=== PATIENT | male | born 1960 | race Caucasian/White ===

== ENCOUNTER 2017-07-17 08:15 | Outpatient (RCR) | payer OTHER, MEDICAID, SELFPAY ==
--- NOTE | 2017-06-10 13:54 | PT.OTN ---
Addendum entered and electronically signed by Faith Barillas, PT 06/10/17 14:23: Transition note: On June 10, 2017 our therapy services consisting of Speech, Occupational, and Physical Therapy transitioned from the [employer] electronic documentation system to a new [employer] electronic documentation system.?? All documentation prior to June 10 can be found under [employer] saved data. From June 10 forward all medical record documentation will be in [email or web address]. Original Note: Physical Therapy Treatment Note PT-OP-A Visit Information Start: 06/10/17 08:12 Freq: Status: Active Protocol: Activity Type Activity Date Activity User E-Sign Co-Sign Detail Recorded Client Recorded Date Recorded By Document 06/10/17 13:39 EA [id number] 06/10/17 13:40 EA 06/10/17 13:39 Out-Patient Physical Therapy Visit Information [Visit Information] -Visit Type Treatment Note -Visit Start Time 07:30 -Visit Stop Time 08:23 -Total Visit Minutes 53 PT-OP-C Subjective Start: 06/10/17 08:12 Freq: Status: Active Protocol: Activity Type Activity Date Activity User E-Sign Co-Sign Detail Recorded Client Recorded Date Recorded By Document 06/10/17 08:15 EA [id number] 06/10/17 10:27 EA 06/10/17 08:15 OP-PT Subjective [Patient Comments] -Patient Comments Patient reports no change in the condition which pain comes and goes and mostly w/ stationary seating. -Patient Reported Progress Same PT-OP-Q Treatments Start: 06/10/17 08:12 Freq: Status: Active Protocol: Activity Type Activity Date Activity User E-Sign Co-Sign Detail Recorded Client Recorded Date Recorded By Document 06/10/17 08:15 EA [id number] 06/10/17 10:27 EA 06/10/17 08:15 Therapeutic Exercises [Supine Exercises] Stretched: Bilat periformis, Thoralumbars, gluteals -Side bilateral PPT/abd bracing: w/ alt marching -Side bilateral -Reps/Minutes x 10 reps x 2 sets Single to bilateral knee to chest w/ PPT -Side bilateral -Reps/Minutes x 15 SH x 5 reps x 2 sets [Prone Exercises] Prone childe pose x 2 reps x 15SH each sides -Side bilateral Prone knee bent Low trunk rotation x 15 reps x 2 sets -Side bilateral -Resistance AROM -Reps/Minutes x 15 x 2sets Prone Mat: Unilat-bilateral hip extension- to progress w/ alt arms reaching -Side bilateral -Reps/Minutes 15 rep x 2 sets Manual Therapy Treatment [Soft Tissue Mobilization] STM to right paralumbars, TLF -Mobilization Type Myofascial Release Sustained Pressure -Body Position Prone PT-OP-R Modalities Start: 06/10/17 08:12 Freq: Status: Active Protocol: Activity Type Activity Date Activity User E-Sign Co-Sign Detail Recorded Client Recorded Date Recorded By Document 06/10/17 08:15 EA [id number] 06/10/17 10:27 EA 06/10/17 08:15 Electric Stimulation [Electric Stimulation] Interferential Current (IFC) -Intensity 23 -Contraction Type Normal -Target/Sweep Target -High/Low High -Patient Position Prone -Combined With Heat/Cold Hot Pack Hot Pack/Cold Pack [Treatment] Hot Pack -Location Paralumbars -Patient Position Prone -Patient Tolerance Good PT-OP-T Assessment and Plan Start: 06/10/17 08:12 Freq: Status: Active Protocol: Activity Type Activity Date Activity User E-Sign Co-Sign Detail Recorded Client Recorded Date Recorded By Document 06/10/17 08:15 EA [id number] 06/10/17 10:27 EA 06/10/17 08:15 Physical Therapy Assessment [Progress Towards Goals] -Progress Comments Patient tolerated treatment well and had good sysmtoms relief after treatment [Assessment Summary] -Assessment Conitunue w/ current program Physical Therapy Plan [Frequency and Duration] -Frequency of Treatment 2x/Week [Therapeutic Interventions] -Therapeutic Interventions Home Exercise Program Manual Therapy Soft Tissue Mobilization Therapeutic Exercises -Modalities Hot Packs Ultrasound Current Diagnoses Other intervertebral disc displacement, lumbar region (06/10/17) Sciatica, right side (06/10/17)
--- NOTE | 2017-06-10 14:41 | PT.OTN ---
Physical Therapy Treatment Note PT-OP-A Visit Information Start: 06/10/17 08:12 Freq: Status: Active Protocol: Activity Type Activity Date Activity User E-Sign Co-Sign Detail Recorded Client Recorded Date Recorded By Document 06/10/17 13:39 EA [id number] 06/10/17 13:40 EA 06/10/17 13:39 Out-Patient Physical Therapy Visit Information [Visit Information] -Visit Type Treatment Note -Visit Start Time 07:30 -Visit Stop Time 08:23 -Total Visit Minutes 53 PT-OP-C Subjective Start: 06/10/17 08:12 Freq: Status: Active Protocol: Activity Type Activity Date Activity User E-Sign Co-Sign Detail Recorded Client Recorded Date Recorded By Document 06/10/17 08:15 EA [id number] 06/10/17 10:27 EA 06/10/17 08:15 OP-PT Subjective [Patient Comments] -Patient Comments Patient reports no change in the condition which pain comes and goes and mostly w/ stationary seating. -Patient Reported Progress Same PT-OP-Q Treatments Start: 06/10/17 08:12 Freq: Status: Active Protocol: Activity Type Activity Date Activity User E-Sign Co-Sign Detail Recorded Client Recorded Date Recorded By Document 06/10/17 08:15 EA [id number] 06/10/17 10:27 EA 06/10/17 08:15 Therapeutic Exercises [Supine Exercises] Stretched: Bilat periformis, Thoralumbars, gluteals -Side bilateral PPT/abd bracing: w/ alt marching -Side bilateral -Reps/Minutes x 10 reps x 2 sets Single to bilateral knee to chest w/ PPT -Side bilateral -Reps/Minutes x 15 SH x 5 reps x 2 sets [Prone Exercises] Prone childe pose x 2 reps x 15SH each sides -Side bilateral Prone knee bent Low trunk rotation x 15 reps x 2 sets -Side bilateral -Resistance AROM -Reps/Minutes x 15 x 2sets Prone Mat: Unilat-bilateral hip extension- to progress w/ alt arms reaching -Side bilateral -Reps/Minutes 15 rep x 2 sets Manual Therapy Treatment [Soft Tissue Mobilization] STM to right paralumbars, TLF -Mobilization Type Myofascial Release Sustained Pressure -Body Position Prone PT-OP-R Modalities Start: 06/10/17 08:12 Freq: Status: Active Protocol: Activity Type Activity Date Activity User E-Sign Co-Sign Detail Recorded Client Recorded Date Recorded By Document 06/10/17 08:15 EA [id number] 06/10/17 10:27 EA 06/10/17 08:15 Electric Stimulation [Electric Stimulation] Interferential Current (IFC) -Intensity 23 -Contraction Type Normal -Target/Sweep Target -High/Low High -Patient Position Prone -Combined With Heat/Cold Hot Pack Hot Pack/Cold Pack [Treatment] Hot Pack -Location Paralumbars -Patient Position Prone -Patient Tolerance Good PT-OP-T Assessment and Plan Start: 06/10/17 08:12 Freq: Status: Active Protocol: Activity Type Activity Date Activity User E-Sign Co-Sign Detail Recorded Client Recorded Date Recorded By Document 06/10/17 08:15 EA [id number] 06/10/17 10:27 EA 06/10/17 08:15 Physical Therapy Assessment [Progress Towards Goals] -Progress Comments Patient tolerated treatment well and had good sysmtoms relief after treatment [Assessment Summary] -Assessment Conitunue w/ current program Physical Therapy Plan [Frequency and Duration] -Frequency of Treatment 2x/Week [Therapeutic Interventions] -Therapeutic Interventions Home Exercise Program Manual Therapy Soft Tissue Mobilization Therapeutic Exercises -Modalities Hot Packs Ultrasound Current Diagnoses Other intervertebral disc displacement, lumbar region (06/10/17) Sciatica, right side (06/10/17)
--- NOTE | 2017-06-12 10:43 | PT.OTN ---
Current Diagnoses Other intervertebral disc displacement, lumbar region (06/12/17) Sciatica, right side (06/12/17) Physical Therapy Treatment Note PT-OP-A Visit Information Start: 06/10/17 08:12 Freq: Status: Active Protocol: Activity Type Activity Date Activity User E-Sign Co-Sign Detail Recorded Client Recorded Date Recorded By Document 06/12/17 10:29 EA [id number] 06/12/17 10:40 EA 06/12/17 10:29 Out-Patient Physical Therapy Visit Information [Visit Information] -Total Visit Minutes 45 PT-OP-C Subjective Start: 06/10/17 08:12 Freq: Status: Active Protocol: Activity Type Activity Date Activity User E-Sign Co-Sign Detail Recorded Client Recorded Date Recorded By Document 06/12/17 10:29 EA [id number] 06/12/17 10:40 EA 06/12/17 10:29 OP-PT Subjective [Patient Comments] -Patient Comments Patient reports low back pain only hurts when at sleep and pain usually eliminated after moving. PT-OP-Q Treatments Start: 06/10/17 08:12 Freq: Status: Active Protocol: Activity Type Activity Date Activity User E-Sign Co-Sign Detail Recorded Client Recorded Date Recorded By Document 06/12/17 10:29 EA [id number] 06/12/17 10:40 EA 06/12/17 10:29 Therapeutic Exercises [Supine Exercises] Stretched: Bilat periformis, Thoralumbars, gluteals -Side bilateral -Reps/Minutes 30 SH x 2 PPT/abd bracing: w/ alt marching -Side bilateral -Reps/Minutes 10 reps x 2sets Single to bilateral knee to chest w/ PPT -Side bilateral -Reps/Minutes x 15 SH x 2 reps [Prone Exercises] Prone childe pose x 2 reps x 15SH each sides -Side bilateral -Reps/Minutes x 15 SH x 2 reps Prone knee bent Low trunk rotation x 15 reps x 2 sets -Side bilateral -Reps/Minutes x 15 reps x 2 sets Prone Mat: Unilat-bilateral hip extension- to progress w/ alt arms reaching -Side bilateral -Reps/Minutes x 15 reps x 2 Manual Therapy Treatment [Soft Tissue Mobilization] STM to right paralumbars, TLF -Mobilization Type Myofascial Release Sustained Pressure -Body Position Prone PT-OP-R Modalities Start: 06/10/17 08:12 Freq: Status: Active Protocol: Activity Type Activity Date Activity User E-Sign Co-Sign Detail Recorded Client Recorded Date Recorded By Document 06/12/17 10:29 EA [id number] 06/12/17 10:40 EA 06/12/17 10:29 Electric Stimulation [Electric Stimulation] Interferential Current (IFC) -Contraction Type Normal -Patient Position Prone -Combined With Heat/Cold Hot Pack Hot Pack/Cold Pack [Treatment] Hot Pack -Location paralumbars -Patient Position Prone -Patient Tolerance Good PT-OP-T Assessment and Plan Start: 06/10/17 08:12 Freq: Status: Active Protocol: Activity Type Activity Date Activity User E-Sign Co-Sign Detail Recorded Client Recorded Date Recorded By Document 06/12/17 10:29 EA [id number] 06/12/17 10:40 EA 06/12/17 10:29 Physical Therapy Assessment [Assessment Summary] -Assessment Patient is progressing well. Decreased tenderness to low back. Recommend patient decrease session to once a week. Physical Therapy Plan [Next Visit Focus/Plan] -Next Visit Plan Advance as tolerated
--- NOTE | 2017-06-12 12:11 | PT.OTN ---
Current Diagnoses Other intervertebral disc displacement, lumbar region (06/12/17) Sciatica, right side (06/12/17) Physical Therapy Treatment Note PT-OP-A Visit Information Start: 06/10/17 08:12 Freq: Status: Active Protocol: Activity Type Activity Date Activity User E-Sign Co-Sign Detail Recorded Client Recorded Date Recorded By Document 06/12/17 10:29 EA [id number] 06/12/17 10:40 EA 06/12/17 10:29 Out-Patient Physical Therapy Visit Information [Visit Information] -Total Visit Minutes 45 PT-OP-C Subjective Start: 06/10/17 08:12 Freq: Status: Active Protocol: Activity Type Activity Date Activity User E-Sign Co-Sign Detail Recorded Client Recorded Date Recorded By Document 06/12/17 10:29 EA [id number] 06/12/17 10:40 EA 06/12/17 10:29 OP-PT Subjective [Patient Comments] -Patient Comments Patient reports low back pain only hurts when at sleep and pain usually eliminated after moving. PT-OP-Q Treatments Start: 06/10/17 08:12 Freq: Status: Active Protocol: Activity Type Activity Date Activity User E-Sign Co-Sign Detail Recorded Client Recorded Date Recorded By Document 06/12/17 10:29 EA [id number] 06/12/17 10:40 EA 06/12/17 10:29 Therapeutic Exercises [Supine Exercises] Stretched: Bilat periformis, Thoralumbars, gluteals -Side bilateral -Reps/Minutes 30 SH x 2 PPT/abd bracing: w/ alt marching -Side bilateral -Reps/Minutes 10 reps x 2sets Single to bilateral knee to chest w/ PPT -Side bilateral -Reps/Minutes x 15 SH x 2 reps [Prone Exercises] Prone childe pose x 2 reps x 15SH each sides -Side bilateral -Reps/Minutes x 15 SH x 2 reps Prone knee bent Low trunk rotation x 15 reps x 2 sets -Side bilateral -Reps/Minutes x 15 reps x 2 sets Prone Mat: Unilat-bilateral hip extension- to progress w/ alt arms reaching -Side bilateral -Reps/Minutes x 15 reps x 2 Manual Therapy Treatment [Soft Tissue Mobilization] STM to right paralumbars, TLF -Mobilization Type Myofascial Release Sustained Pressure -Body Position Prone PT-OP-R Modalities Start: 06/10/17 08:12 Freq: Status: Active Protocol: Activity Type Activity Date Activity User E-Sign Co-Sign Detail Recorded Client Recorded Date Recorded By Document 06/12/17 10:29 EA [id number] 06/12/17 10:40 EA 06/12/17 10:29 Electric Stimulation [Electric Stimulation] Interferential Current (IFC) -Contraction Type Normal -Patient Position Prone -Combined With Heat/Cold Hot Pack Hot Pack/Cold Pack [Treatment] Hot Pack -Location paralumbars -Patient Position Prone -Patient Tolerance Good PT-OP-T Assessment and Plan Start: 06/10/17 08:12 Freq: Status: Active Protocol: Activity Type Activity Date Activity User E-Sign Co-Sign Detail Recorded Client Recorded Date Recorded By Document 06/12/17 10:29 EA [id number] 06/12/17 10:40 EA 06/12/17 10:29 Physical Therapy Assessment [Assessment Summary] -Assessment Patient is progressing well. Decreased tenderness to low back. Recommend patient decrease session to once a week. Physical Therapy Plan [Next Visit Focus/Plan] -Next Visit Plan Advance as tolerated
--- NOTE | 2017-06-19 16:42 | PT.OTN ---
Current Diagnoses Other intervertebral disc displacement, lumbar region (06/19/17) Sciatica, right side (06/19/17) Physical Therapy Treatment Note PT-OP-A Visit Information Start: 06/10/17 08:12 Freq: Status: Active Protocol: Document 06/19/17 16:37 EA (Rec: 06/19/17 16:42 EA [id number]) Out-Patient Physical Therapy Visit Information Visit Information Visit Type Treatment Note Visit Start Time 04:00 Visit Stop Time 04:45 Total Visit Minutes 45 PT-OP-C Subjective Start: 06/10/17 08:12 Freq: Status: Active Protocol: Document 06/19/17 16:37 EA (Rec: 06/19/17 16:42 EA [id number]) OP-PT Subjective Patient Comments Patient Comments Patient reports back is quite sore today but not as much as before. PT-OP-Q Treatments Start: 06/10/17 08:12 Freq: Status: Active Protocol: Document 06/19/17 16:37 EA (Rec: 06/19/17 16:42 EA [id number]) Cardio Equipment Recumbent Stepper (Sci-Fit) Duration (Minutes) 5 Resistance 3 Manual Therapy Treatment Soft Tissue Mobilization STM to right paralumbars, TLF Mobilization Type Myofascial Release Sustained Pressure Body Position Prone PT-OP-R Modalities Start: 06/10/17 08:12 Freq: Status: Active Protocol: Document 06/19/17 16:37 EA (Rec: 06/19/17 16:42 EA [id number]) Electric Stimulation Electric Stimulation Interferential Current (IFC) Contraction Type Normal Patient Position Prone Combined With Heat/Cold Hot Pack Hot Pack/Cold Pack Treatment Hot Pack Location paralumbars Patient Position Prone Patient Tolerance Good PT-OP-T Assessment and Plan Start: 06/10/17 08:12 Freq: Status: Active Protocol: Document 06/19/17 16:37 EA (Rec: 06/19/17 16:42 EA [id number]) Physical Therapy Assessment Assessment Summary Assessment Patient tolerated treatment w/ no signs of discomfort during exercises. Patient is progressing Physical Therapy Plan Next Visit Focus/Plan Next Visit Plan Advance as tolerated
--- NOTE | 2017-06-23 07:30 | PT.OTN ---
Current Diagnoses Other intervertebral disc displacement, lumbar region (06/19/17) Sciatica, right side (06/19/17) Physical Therapy Treatment Note PT-OP-A Visit Information Start: 06/10/17 08:12 Freq: Status: Active Protocol: Document 06/19/17 16:37 EA (Rec: 06/19/17 16:42 EA [id number]) Out-Patient Physical Therapy Visit Information Visit Information Visit Type Treatment Note Visit Start Time 04:00 Visit Stop Time 04:45 Total Visit Minutes 45 PT-OP-C Subjective Start: 06/10/17 08:12 Freq: Status: Active Protocol: Document 06/19/17 16:37 EA (Rec: 06/19/17 16:42 EA [id number]) OP-PT Subjective Patient Comments Patient Comments Patient reports back is quite sore today but not as much as before. PT-OP-Q Treatments Start: 06/10/17 08:12 Freq: Status: Active Protocol: Document 06/19/17 16:37 EA (Rec: 06/19/17 16:42 EA [id number]) Cardio Equipment Recumbent Stepper (Sci-Fit) Duration (Minutes) 5 Resistance 3 Therapeutic Exercises Supine Exercises Stretched: Bilat periformis, Thoralumbars, gluteals Side bilateral Reps/Minutes 30 SH x 2 PPT/abd bracing: w/ alt marching Side bilateral Reps/Minutes 10 reps x 2sets Single to bilateral knee to chest w/PPT Side bilateral Reps/Minutes x 15 SH x 2 reps Prone Exercises Prone childe pose x 2 reps x 15SH each sides Side bilateral Reps/Minutes x 15 SH x 2 reps Prone knee bent Low trunk rotation x 15 reps x 2 sets Side bilateral Reps/Minutes x 15 reps x 2 sets Prone Mat: Unilat-bilateral hip extension- to progress w/ alt arms reaching Side bilateral Reps/Minutes x 15 reps x 2 Manual Therapy Treatment Soft Tissue Mobilization STM to right paralumbars, TLF Mobilization Type Myofascial Release Sustained Pressure Body Position Prone PT-OP-R Modalities Start: 06/10/17 08:12 Freq: Status: Active Protocol: Document 06/19/17 16:37 EA (Rec: 06/19/17 16:42 EA [id number]) Electric Stimulation Electric Stimulation Interferential Current (IFC) Contraction Type Normal Patient Position Prone Combined With Heat/Cold Hot Pack Hot Pack/Cold Pack Treatment Hot Pack Location paralumbars Patient Position Prone Patient Tolerance Good PT-OP-T Assessment and Plan Start: 06/10/17 08:12 Freq: Status: Active Protocol: Document 06/19/17 16:37 EA (Rec: 06/19/17 16:42 EA [id number]) Physical Therapy Assessment Assessment Summary Assessment Patient tolerated treatment w/ no signs of discomfort during exercises. Patient is progressing Physical Therapy Plan Next Visit Focus/Plan Next Visit Plan Advance as tolerated
--- NOTE | 2017-06-30 12:56 | PT.OTRE ---
Current Diagnoses Other intervertebral disc displacement, lumbar region (06/30/17) Sciatica, right side (06/30/17) Provider Visit Care Team Role Provider Type Emeli Goode MD Primary Care Provider Physician Specialty: Family Practice Address: [address] [place] [address], [id number] Email: [email or web address] Jermaine Liu MD Family Provider Physician Specialty: Family Practice Address: [address] [place] [address], [address] Email: [email or web address] Cristopher Durbin PA-C Attending Provider Advanced Practioner Clinician Specialty: Orthopedic Surgery Address: [address] [place] [address], [id number] Email: [email or web address] [facility] Re-Evaluation PT-OP-A Visit Information Start: 06/10/17 08:12 Freq: Status: Active Protocol: Document 06/30/17 12:19 EA (Rec: 06/30/17 12:24 EA [id number]) Out-Patient Physical Therapy Visit Information Visit Information Visit Type Treatment Note Visit Start Time 07:30 Visit Stop Time 08:15 PT-OP-B Current Condition Start: 06/10/17 08:12 Freq: Status: Active Protocol: Document 06/30/17 12:19 EA (Rec: 06/30/17 12:24 EA [id number]) Current Condition History of Current Condition Onset Date 5 years Current Complaints Rightchronic low back pain History of Current Condition Gradual onset with no significant history of injury or surgery; multiple PT appointments in the past that helps but did not completely resolved. Medical reports reveals normal lumbar spine with no abnormality noted. Prior Treatments and Tests X-rays reports indicates no significant findings. Developmental History Developmental History Chronic low back pain Treatment Goals Patient/Caregiver Goals Eliminate low back pain so he could perform his job without difficulty. Prior Functional Status Baseline Function- ADL's Independent Baseline Function- Mobility Independent Current Functional Impairments (Reported) Functional Limitations- Work/School As per patient, limited due to pain with bending and lifting activities. PT-OP-C Subjective Start: 06/10/17 08:12 Freq: Status: Active Protocol: Document 06/30/17 12:30 EA (Rec: 06/30/17 12:52 EA [id number]) OP-PT Subjective Patient Comments Patient Comments Patient reports consistent with 2 miles walking daily; pain in the morning rated 5/10 . Pt reports has been doing HEP infrequently due to emotional and partner relationship. Patient Reported Progress Same Patient Questionnaires Oswestry Low Back Index Oswestry Impairment 20 to 39% Impaired (Score 20- 39) PT-OP-E Functional Tests Start: 06/10/17 08:12 Freq: Status: Active Protocol: Document 06/30/17 12:30 EA (Rec: 06/30/17 12:52 EA [id number]) Functional Tests Other walk on heel and toes Comment did not elcit weakness or pain to low back. PT-OP-F Manual Assessment Start: 06/10/17 08:12 Freq: Status: Active Protocol: Document 06/30/17 12:30 EA (Rec: 06/30/17 12:52 EA [id number]) Manual Assessments Soft Tissue Assessment Soft Tissue Mobility Assessment Grade 1 tender over R SI joint . Other Manual Assessments Other Manual Assessments Tightness to biletaral Hip flexors/qudas, IT band, and hi ER. PT-OP-G Mobility & Gait Start: 06/10/17 08:12 Freq: Status: Active Protocol: Document 06/30/17 12:30 EA (Rec: 06/30/17 12:52 EA [id number]) Stair Climbing Evaluation Evaluation Level of Assist On Stairs Independent Devices Stair Climbing Assistive Devices None PT-OP-H Neuro Start: 06/10/17 08:12 Freq: Status: Active Protocol: Document 06/30/17 12:30 EA (Rec: 06/30/17 12:52 EA [id number]) Sensation Evaluation Gross Sensation Gross Sensation WNL Comments Summary Comments WFL as to sensory and propriocetion to both LE's Deep Tendon Reflex & Clonus Assessment Deep Tendon Reflex Bilateral Patellar Deep Tendon Reflex 2+ Normal Muscle Tone Tone Assessment Right Flexor Tone Description Normal Extensor Tone Description Normal PT-OP-J Posture/Palpation/Skin Start: 06/30/17 12:42 Freq: Status: Active Protocol: Document 06/30/17 12:52 EA (Rec: 06/30/17 12:54 EA [id number]) Posture Evaluation Position Standing L-Spine Posture Increased Lordosis Pelvis Posture Anteriorly Tilted Palpation Assessment Location One Palpation Location IT band, Low back, hip flexors and hi rotators. Palpation Findings Soft Tissue Tightness PT-OP-M Strength Start: 06/10/17 08:12 Freq: Status: Active Protocol: Document 06/30/17 12:30 EA (Rec: 06/30/17 12:52 EA [id number]) Trunk Strength Trunk Manual Muscle Testing Flexion 5 Normal Extension 5 Normal Rotation Left 5 Normal Rotation Right 5 Normal Lateral Flexion Left 5 Normal Lateral Flexion Right 5 Normal Knee Strength Knee Manual Muscle Testing Right Reason Not Measured WFL PT-OP-Q Treatments Start: 06/10/17 08:12 Freq: Status: Active Protocol: Document 06/30/17 12:30 EA (Rec: 06/30/17 12:52 EA [id number]) Therapeutic Exercises Supine Exercises Stretched: Bilat periformis, Thoralumbars, gluteals Side bilateral Reps/Minutes 30 SH x 2 PPT/abd bracing: w/ alt marching Side bilateral Reps/Minutes 10 reps x 2sets Single to bilateral knee to chest w/PPT Side bilateral Reps/Minutes x 15 SH x 2 reps Prone Exercises Prone childe pose x 2 reps x 15SH each sides Side bilateral Reps/Minutes x 15 SH x 2 reps Prone knee bent Low trunk rotation x 15 reps x 2 sets Side bilateral Reps/Minutes x 15 reps x 2 sets Prone Mat: Unilat-bilateral hip extension- to progress w/ alt arms reaching Side bilateral Reps/Minutes x 15 reps x 2 Manual Therapy Treatment Soft Tissue Mobilization STM to right paralumbars, TLF Mobilization Type Myofascial Release Sustained Pressure Body Position Prone PT-OP-R Modalities Start: 06/10/17 08:12 Freq: Status: Active Protocol: Document 06/30/17 12:30 EA (Rec: 06/30/17 12:52 EA [id number]) Electric Stimulation Electric Stimulation Interferential Current (IFC) Intensity 23 Contraction Type Normal Target/Sweep Target High/Low High Patient Position Prone Combined With Heat/Cold Hot Pack PT-OP-T Assessment and Plan Start: 06/10/17 08:12 Freq: Status: Active Protocol: Document 06/30/17 12:30 EA (Rec: 06/30/17 12:52 EA [id number]) Physical Therapy Assessment Rehab Potential Rehabilitation Potential Good Impairments Impairments Pain Posture ROM Soft Tissue Mobility Goals Three Impairment SI joints, R grade 1 tenderness Mixer Operator Tablets Goal (LTG) Patient will exhibit no SI joint tenderness to improve ligting ability. Two Impairment Tight bilateral HIP flexors, ERotators, IT band, Quads [facility] Goal (LTG) Patient will exhibit full excursion to bilateral hip rotators, flexors, IT band and quads to improve lumbar alignment. LTG Duration 4 wks One Impairment Increased Lumbar lordosis Mixer Operator Tablets Goal (LTG) Patient roger exhibit neutral lumbar curve in all dynamic mobility to decrease lumbar strain. LTG Duration 4 wks Progress Towards Goals Progress Towards Goals Slow Progress due to Noncompliance Slow Progress - Other Assessment Summary Assessment Slight improvement with flexibility and activity tolerance. Patient is progressing slow. Continue with current plan. Advance as tolerated. Recommended once a week session. Physical Therapy Plan Frequency and Duration Frequency of Treatment 1x/Week Plan of Care Start Date 06/29/17 Plan of Care End Date 07/30/17 Therapeutic Interventions Therapeutic Interventions Home Exercise Program Joint Mobilizations Manual Therapy Patient/Caregiver Education Self-Care/Home Management Soft Tissue Mobilization Therapeutic Exercises Modalities Electric Stimulation Hot Packs Ultrasound Next Visit Focus/Plan Next Visit Plan Functional activity exercise ( lifting). more education. Please Sign and Return: I have reviewed this Plan of Care and certify that the skilled therapy services above are required to meet the patient???s needs. Physician Signature Date Printed Name and Credentials Clinical Instructor Signature Printed Name and Credentials
--- NOTE | 2017-06-30 12:56 | PT.OPPOC ---
Current Diagnoses Other intervertebral disc displacement, lumbar region (06/30/17) Sciatica, right side (06/30/17) Provider Visit Care Team Role Provider Type Emeli Goode MD Primary Care Provider Physician Specialty: Family Practice Address: [address] [place] [address], [id number] Email: [email or web address] Jermaine Liu MD Family Provider Physician Specialty: Family Practice Address: [address] [place] [address], [address] Email: [email or web address] Cristopher Durbin PA-C Attending Provider Advanced Practioner Clinician Specialty: Orthopedic Surgery Address: [address] [place] [address], [address] Email: [email or web address] Plan Of Care PT-OP-T Assessment and Plan Start: 06/10/17 08:12 Freq: Status: Active Protocol: Document 06/30/17 12:30 EA (Rec: 06/30/17 12:52 EA [id number]) Physical Therapy Assessment Rehab Potential Rehabilitation Potential Good Impairments Impairments Pain Posture ROM Soft Tissue Mobility Goals Three Impairment SI joints, R grade 1 tenderness Philosophy Specialist Goal (LTG) Patient will exhibit no SI joint tenderness to improve lifting ability. Two Impairment Tight bilateral HIP flexors, ERotators, IT band, Quads [facility] Goal (LTG) Patient will exhibit full excursion to bilateral hip rotators, flexors, IT band and quads to improve lumbar alignment. LTG Duration 4 wks One Impairment Increased Lumbar lordosis Philosophy Specialist Goal (LTG) Patient roger exhibit neutral lumbar curve in all dynamic mobility to decrease lumbar strain. LTG Duration 4 wks Progress Towards Goals Progress Towards Goals Slow Progress due to Noncompliance Slow Progress - Other Assessment Summary Assessment Slight improvement with flexibility and activity tolerance. Patient is progressing slow. Continue with current plan. Advance as tolerated. Recommended once a week session. Physical Therapy Plan Frequency and Duration Frequency of Treatment 1x/Week Plan of Care Start Date 06/29/17 Plan of Care End Date 06/20/18 Therapeutic Interventions Therapeutic Interventions Home Exercise Program Joint Mobilizations Manual Therapy Patient/Caregiver Education Self-Care/Home Management Soft Tissue Mobilization Therapeutic Exercises Modalities Electric Stimulation Hot Packs Ultrasound Next Visit Focus/Plan Next Visit Plan Functional activity exercise ( lifting). more education. Plan of Care Dates Plan of Care Start Date 06/29/17 Plan of Care End Date 07/30/17 Please Sign and Return: I have reviewed this Plan of Care and certify that the skilled therapy services above are required to meet the patient???s needs. Physician Signature Date Printed Name and Credentials Clinical Instructor Signature Printed Name and Credentials
--- NOTE | 2017-06-30 12:58 | PT.OTN ---
Current Diagnoses Other intervertebral disc displacement, lumbar region (06/30/17) Sciatica, right side (06/30/17) Physical Therapy Treatment Note PT-OP-A Visit Information Start: 06/10/17 08:12 Freq: Status: Active Protocol: Document 06/30/17 12:19 EA (Rec: 06/30/17 12:24 EA [id number]) Out-Patient Physical Therapy Visit Information Visit Information Visit Type Treatment Note Visit Start Time 07:30 Visit Stop Time 08:15 PT-OP-B Current Condition Start: 06/10/17 08:12 Freq: Status: Active Protocol: Document 06/30/17 12:19 EA (Rec: 06/30/17 12:24 EA [id number]) Current Condition History of Current Condition Onset Date 5 years Current Complaints Rightchronic low back pain History of Current Condition Gradual onset with no significant history of injury or surgery; multiple PT appointments in the past that helps but did not completely resolved. Medical reports reveals normal lumbar spine with no abnormality noted. Prior Treatments and Tests X-rays reports indicates no significant findings. Developmental History Developmental History Chronic low back pain Treatment Goals Patient/Caregiver Goals Eliminate low back pain so he could perform his job without difficulty. Prior Functional Status Baseline Function- ADL's Independent Baseline Function- Mobility Independent Current Functional Impairments (Reported) Functional Limitations- Work/School As per patient, limited due to pain with bending and lifting activities. PT-OP-C Subjective Start: 06/10/17 08:12 Freq: Status: Active Protocol: Document 06/30/17 12:30 EA (Rec: 06/30/17 12:52 EA [id number]) OP-PT Subjective Patient Comments Patient Comments Patient reports consistent with 2 miles walking daily; pain in the morning rated 5/10 . Pt reports has been doing HEP infrequently due to emotional and partner relationship. Patient Reported Progress Same Patient Questionnaires Oswestry Low Back Index Oswestry Impairment 20 to 39% Impaired (Score 20- 39) PT-OP-E Functional Tests Start: 06/10/17 08:12 Freq: Status: Active Protocol: Document 06/30/17 12:30 EA (Rec: 06/30/17 12:52 EA [id number]) Functional Tests Other walk on heel and toes Comment did not elcit weakness or pain to low back. PT-OP-F Manual Assessment Start: 06/10/17 08:12 Freq: Status: Active Protocol: Document 06/30/17 12:30 EA (Rec: 06/30/17 12:52 EA [id number]) Manual Assessments Soft Tissue Assessment Soft Tissue Mobility Assessment Grade 1 tender over R SI joint . Other Manual Assessments Other Manual Assessments Tightness to biletaral Hip flexors/qudas, IT band, and hi ER. PT-OP-G Mobility & Gait Start: 06/10/17 08:12 Freq: Status: Active Protocol: Document 06/30/17 12:30 EA (Rec: 06/30/17 12:52 EA [id number]) Stair Climbing Evaluation Evaluation Level of Assist On Stairs Independent Devices Stair Climbing Assistive Devices None PT-OP-H Neuro Start: 06/10/17 08:12 Freq: Status: Active Protocol: Document 06/30/17 12:30 EA (Rec: 06/30/17 12:52 EA [id number]) Sensation Evaluation Gross Sensation Gross Sensation WNL Comments Summary Comments WFL as to sensory and propriocetion to both LE's Deep Tendon Reflex & Clonus Assessment Deep Tendon Reflex Bilateral Patellar Deep Tendon Reflex 2+ Normal Muscle Tone Tone Assessment Right Flexor Tone Description Normal Extensor Tone Description Normal PT-OP-J Posture/Palpation/Skin Start: 06/30/17 12:42 Freq: Status: Active Protocol: Document 06/30/17 12:52 EA (Rec: 06/30/17 12:54 EA [id number]) Posture Evaluation Position Standing L-Spine Posture Increased Lordosis Pelvis Posture Anteriorly Tilted Palpation Assessment Location One Palpation Location IT band, Low back, hip flexors and hi rotators. Palpation Findings Soft Tissue Tightness PT-OP-M Strength Start: 06/10/17 08:12 Freq: Status: Active Protocol: Document 06/30/17 12:30 EA (Rec: 06/30/17 12:52 EA [id number]) Trunk Strength Trunk Manual Muscle Testing Flexion 5 Normal Extension 5 Normal Rotation Left 5 Normal Rotation Right 5 Normal Lateral Flexion Left 5 Normal Lateral Flexion Right 5 Normal Knee Strength Knee Manual Muscle Testing Right Reason Not Measured WFL PT-OP-Q Treatments Start: 06/10/17 08:12 Freq: Status: Active Protocol: Document 06/30/17 12:30 EA (Rec: 06/30/17 12:52 EA [id number]) Therapeutic Exercises Supine Exercises Stretched: Bilat periformis, Thoralumbars, gluteals Side bilateral Reps/Minutes 30 SH x 2 PPT/abd bracing: w/ alt marching Side bilateral Reps/Minutes 10 reps x 2sets Single to bilateral knee to chest w/PPT Side bilateral Reps/Minutes x 15 SH x 2 reps Prone Exercises Prone childe pose x 2 reps x 15SH each sides Side bilateral Reps/Minutes x 15 SH x 2 reps Prone knee bent Low trunk rotation x 15 reps x 2 sets Side bilateral Reps/Minutes x 15 reps x 2 sets Prone Mat: Unilat-bilateral hip extension- to progress w/ alt arms reaching Side bilateral Reps/Minutes x 15 reps x 2 Manual Therapy Treatment Soft Tissue Mobilization STM to right paralumbars, TLF Mobilization Type Myofascial Release Sustained Pressure Body Position Prone PT-OP-R Modalities Start: 06/10/17 08:12 Freq: Status: Active Protocol: Document 06/30/17 12:30 EA (Rec: 06/30/17 12:52 EA [id number]) Electric Stimulation Electric Stimulation Interferential Current (IFC) Intensity 23 Contraction Type Normal Target/Sweep Target High/Low High Patient Position Prone Combined With Heat/Cold Hot Pack PT-OP-T Assessment and Plan Start: 06/10/17 08:12 Freq: Status: Active Protocol: Document 06/30/17 12:30 EA (Rec: 06/30/17 12:52 EA [id number]) Physical Therapy Assessment Rehab Potential Rehabilitation Potential Good Impairments Impairments Pain Posture ROM Soft Tissue Mobility Goals Three Impairment SI joints, R grade 1 tenderness Snf Goal (LTG) Patient will exhibit no SI joint tenderness to improve ligting ability. Two Impairment Tight bilateral HIP flexors, ERotators, IT band, Quads Clinical Program Coordinator Goal (LTG) Patient will exhibit full excursion to bilateral hip rotators, flexors, IT band and quads to improve lumbar alignment. LTG Duration 4 wks One Impairment Increased Lumbar lordosis Snf Goal (LTG) Patient roger exhibit neutral lumbar curve in all dynamic mobility to decrease lumbar strain. LTG Duration 4 wks Progress Towards Goals Progress Towards Goals Slow Progress due to Noncompliance Slow Progress - Other Assessment Summary Assessment Slight improvement with flexibility and activity tolerance. Patient is progressing slow. Continue with current plan. Advance as tolerated. Recommended once a week session. Physical Therapy Plan Frequency and Duration Frequency of Treatment 1x/Week Plan of Care Start Date 06/29/17 Plan of Care End Date 07/30/17 Therapeutic Interventions Therapeutic Interventions Home Exercise Program Joint Mobilizations Manual Therapy Patient/Caregiver Education Self-Care/Home Management Soft Tissue Mobilization Therapeutic Exercises Modalities Electric Stimulation Hot Packs Ultrasound Next Visit Focus/Plan Next Visit Plan Functional activity exercise ( lifting). more education. Please Sign and Return: I have reviewed this Plan of Care and certify that the skilled therapy services above are required to meet the patient???s needs. Physician Signature Date Printed Name and Credentials Clinical Instructor Signature Printed Name and Credentials
--- NOTE | 2017-07-10 10:30 | PT.OTN ---
Current Diagnoses Other intervertebral disc displacement, lumbar region (07/10/17) Sciatica, right side (07/10/17) Physical Therapy Treatment Note PT-OP-A Visit Information Start: 06/10/17 08:12 Freq: Status: Active Protocol: Document 07/10/17 08:58 EA (Rec: 07/10/17 09:03 EA [id number]) Out-Patient Physical Therapy Visit Information Visit Information Visit Type Treatment Note Visit Start Time 08:15 Visit Stop Time 09:05 Total Visit Minutes 50 PT-OP-B Current Condition Start: 06/10/17 08:12 Freq: Status: Active Protocol: Document 06/30/17 12:19 EA (Rec: 06/30/17 12:24 EA [id number]) Current Condition History of Current Condition Onset Date 5 years Current Complaints Rightchronic low back pain History of Current Condition Gradual onset with no significant history of injury or surgery; multiple PT appointments in the past that helps but did not completely resolved. Medical reports reveals normal lumbar spine with no abnormality noted. Prior Treatments and Tests X-rays reports indicates no significant findings. Developmental History Developmental History Chronic low back pain Treatment Goals Patient/Caregiver Goals Eliminate low back pain so he could perform his job without difficulty. Prior Functional Status Baseline Function- ADL's Independent Baseline Function- Mobility Independent Current Functional Impairments (Reported) Functional Limitations- Work/School As per patient, limited due to pain with bending and lifting activities. PT-OP-C Subjective Start: 06/10/17 08:12 Freq: Status: Active Protocol: Document 07/10/17 08:58 EA (Rec: 07/10/17 09:03 EA [id number]) OP-PT Subjective Patient Comments Patient Comments No new complaints; reports occasional pain still occurs; denies weakness and numbness. Patient Reported Progress Improving PT-OP-E Functional Tests Start: 06/10/17 08:12 Freq: Status: Active Protocol: Document 06/30/17 12:30 EA (Rec: 06/30/17 12:52 EA [id number]) Functional Tests Other walk on heel and toes Comment did not elcit weakness or pain to low back. PT-OP-F Manual Assessment Start: 06/10/17 08:12 Freq: Status: Active Protocol: Document 06/30/17 12:30 EA (Rec: 06/30/17 12:52 EA [id number]) Manual Assessments Soft Tissue Assessment Soft Tissue Mobility Assessment Grade 1 tender over R SI joint . Other Manual Assessments Other Manual Assessments Tightness to biletaral Hip flexors/qudas, IT band, and hi ER. PT-OP-G Mobility & Gait Start: 06/10/17 08:12 Freq: Status: Active Protocol: Document 06/30/17 12:30 EA (Rec: 06/30/17 12:52 EA [id number]) Stair Climbing Evaluation Evaluation Level of Assist On Stairs Independent Devices Stair Climbing Assistive Devices None PT-OP-H Neuro Start: 06/10/17 08:12 Freq: Status: Active Protocol: Document 06/30/17 12:30 EA (Rec: 06/30/17 12:52 EA [id number]) Sensation Evaluation Gross Sensation Gross Sensation WNL Comments Summary Comments WFL as to sensory and propriocetion to both LE's Deep Tendon Reflex & Clonus Assessment Deep Tendon Reflex Bilateral Patellar Deep Tendon Reflex 2+ Normal Muscle Tone Tone Assessment Right Flexor Tone Description Normal Extensor Tone Description Normal PT-OP-J Posture/Palpation/Skin Start: 06/30/17 12:42 Freq: Status: Active Protocol: Document 06/30/17 12:52 EA (Rec: 06/30/17 12:54 EA [id number]) Posture Evaluation Position Standing L-Spine Posture Increased Lordosis Pelvis Posture Anteriorly Tilted Palpation Assessment Location One Palpation Location IT band, Low back, hip flexors and hi rotators. Palpation Findings Soft Tissue Tightness PT-OP-M Strength Start: 06/10/17 08:12 Freq: Status: Active Protocol: Document 06/30/17 12:30 EA (Rec: 06/30/17 12:52 EA [id number]) Trunk Strength Trunk Manual Muscle Testing Flexion 5 Normal Extension 5 Normal Rotation Left 5 Normal Rotation Right 5 Normal Lateral Flexion Left 5 Normal Lateral Flexion Right 5 Normal Knee Strength Knee Manual Muscle Testing Right Reason Not Measured WFL PT-OP-Q Treatments Start: 06/10/17 08:12 Freq: Status: Active Protocol: Document 07/10/17 08:58 EA (Rec: 07/10/17 09:03 EA [id number]) Cardio Equipment Recumbent Stepper (Sci-Fit) Duration (Minutes) 5 Resistance 3 Therapeutic Exercises Supine Exercises Stretched: Bilat periformis, Thoralumbars, gluteals Side bilateral Reps/Minutes 30 SH x 2 PPT/abd bracing: w/ alt marching Side bilateral Reps/Minutes 10 reps x 2sets Single to bilateral knee to chest w/PPT Side bilateral Reps/Minutes x 15 SH x 2 reps Prone Exercises Prone childe pose x 2 reps x 15SH each sides Side bilateral Reps/Minutes x 15 SH x 2 reps Prone knee bent Low trunk rotation x 15 reps x 2 sets Side bilateral Reps/Minutes x 15 reps x 2 sets Prone Mat: Unilat-bilateral hip extension- to progress w/ alt arms reaching Side bilateral Reps/Minutes x 15 reps x 2 Sidelying Exercises 1 Sidelying Exercise Name foam roller to IT band Side bilateral Reps/Minutes x 1-2 mins each Manual Therapy Treatment Soft Tissue Mobilization STM to right paralumbars, TLF Mobilization Type Myofascial Release Sustained Pressure Body Position Prone PT-OP-R Modalities Start: 06/10/17 08:12 Freq: Status: Active Protocol: Document 07/10/17 08:58 EA (Rec: 07/10/17 09:03 EA [id number]) Electric Stimulation Electric Stimulation Interferential Current (IFC) Intensity 23 Contraction Type Normal Target/Sweep Target High/Low High Patient Position Prone Combined With Heat/Cold Hot Pack PT-OP-T Assessment and Plan Start: 06/10/17 08:12 Freq: Status: Active Protocol: Document 07/10/17 08:58 EA (Rec: 07/10/17 09:03 EA [id number]) Physical Therapy Assessment Progress Towards Goals Progress Towards Goals Progressing Toward Goals Assessment Summary Assessment Tolerated treatment with no sign of discomfort or apprehension during exercises; patient is progressing well. Physical Therapy Plan Next Visit Focus/Plan Next Visit Plan Discharge to fitness and [facility] if no more complaint. Please Sign and Return: I have reviewed this Plan of Care and certify that the skilled therapy services above are required to meet the patient???s needs. Physician Signature Date Printed Name and Credentials Clinical Instructor Signature Printed Name and Credentials
--- NOTE | 2017-07-17 09:14 | PT.OPDS ---
Current Diagnoses Other intervertebral disc displacement, lumbar region (07/17/17) Sciatica, right side (07/17/17) Provider Visit Care Team Role Provider Type Emeli Goode MD Primary Care Provider Physician Specialty: Family Practice Address: [address] [place] [address], [id number] Email: [email or web address] Jermaine Liu MD Family Provider Physician Specialty: Family Practice Address: [address] [place] [address], [address] Email: [email or web address] Cristopher Durbin [email or web address]-C Attending Provider Advanced Practioner Clinician Specialty: Orthopedic Surgery Address: [address] [place] [address], [address] Email: [email or web address] Discharge Summary PT-OP-B Current Condition Start: 06/10/17 08:12 Freq: Status: Active Protocol: Document 06/30/17 12:19 EA (Rec: 06/30/17 12:24 EA [id number]) Current Condition History of Current Condition Onset Date 5 years Current Complaints Right chronic low back pain History of Current Condition Gradual onset with no significant history of injury or surgery; multiple PT appointments in the past that helps but did not completely resolved. Medical reports reveals normal lumbar spine with no abnormality noted. Prior Treatments and Tests X-rays reports indicates no significant findings. Developmental History Developmental History Chronic low back pain Treatment Goals Patient/Caregiver Goals Eliminate low back pain so he could perform his job without difficulty. Prior Functional Status Baseline Function- ADL's Independent Baseline Function- Mobility Independent Current Functional Impairments (Reported) Functional Limitations- Work/School As per patient, limited due to pain with bending and lifting activities. PT-OP-C Subjective Start: 06/10/17 08:12 Freq: Status: Active Protocol: Document 07/17/17 08:56 EA (Rec: 07/17/17 09:13 EA [id number]) OP-PT Subjective Patient Comments Patient Comments Patient reports that he feels much improve and low back pain pain decreased in frequency and instensity. Patient states that he wants to learn more HEP and cont. to do it to prevent back pain occurences. Patient Reported Progress Improving PT-OP-E Functional Tests Start: 06/10/17 08:12 Freq: Status: Active Protocol: Document 06/30/17 12:30 EA (Rec: 06/30/17 12:52 EA [id number]) Functional Tests Other walk on heel and toes Comment did not elcit weakness or pain to low back. PT-OP-F Manual Assessment Start: 06/10/17 08:12 Freq: Status: Active Protocol: Document 06/30/17 12:30 EA (Rec: 06/30/17 12:52 EA [id number]) Manual Assessments Soft Tissue Assessment Soft Tissue Mobility Assessment Grade 1 tender over R SI joint . Other Manual Assessments Other Manual Assessments Tightness to biletaral Hip flexors/qudas, IT band, and hi ER. PT-OP-G Mobility & Gait Start: 06/10/17 08:12 Freq: Status: Active Protocol: Document 06/30/17 12:30 EA (Rec: 06/30/17 12:52 EA [id number]) Stair Climbing Evaluation Evaluation Level of Assist On Stairs Independent Devices Stair Climbing Assistive Devices None PT-OP-H Neuro Start: 06/10/17 08:12 Freq: Status: Active Protocol: Document 06/30/17 12:30 EA (Rec: 06/30/17 12:52 EA [id number]) Sensation Evaluation Gross Sensation Gross Sensation WNL Comments Summary Comments WFL as to sensory and propriocetion to both LE's Deep Tendon Reflex & Clonus Assessment Deep Tendon Reflex Bilateral Patellar Deep Tendon Reflex 2+ Normal Muscle Tone Tone Assessment Right Flexor Tone Description Normal Extensor Tone Description Normal PT-OP-J Posture/Palpation/Skin Start: 06/30/17 12:42 Freq: Status: Active Protocol: Document 06/30/17 12:52 EA (Rec: 06/30/17 12:54 EA [id number]) Posture Evaluation Position Standing L-Spine Posture Increased Lordosis Pelvis Posture Anteriorly Tilted Palpation Assessment Location One Palpation Location IT band, Low back, hip flexors and hi rotators. Palpation Findings Soft Tissue Tightness PT-OP-M Strength Start: 06/10/17 08:12 Freq: Status: Active Protocol: Document 06/30/17 12:30 EA (Rec: 06/30/17 12:52 EA [id number]) Trunk Strength Trunk Manual Muscle Testing Flexion 5 Normal Extension 5 Normal Rotation Left 5 Normal Rotation Right 5 Normal Lateral Flexion Left 5 Normal Lateral Flexion Right 5 Normal Knee Strength Knee Manual Muscle Testing Right Reason Not Measured WFL PT-OP-T Assessment and Plan Start: 06/10/17 08:12 Freq: Status: Active Protocol: Document 07/17/17 08:56 EA (Rec: 07/17/17 09:13 EA [id number]) Physical Therapy Assessment Goals Three LTG Duration Reached Two Impairment Tight bilateral HIP flexors, ERotators, IT band, Quads Nursing Home Goal (LTG) Patient will exhibit full excursion to bilateral hip rotators, flexors, IT band and quads to improve lumbar alignment. LTG Duration 4 wks One Impairment Increased Lumbar lordosis Nursing Home Goal (LTG) Patient will exhibit neutral lumbar curve in all dynamic mobility to decrease lumbar strain. LTG Duration reached goals Assessment Summary Assessment Patient is discharged today due to insurance limitation. Patient educated with HEP, preventative measures and maintaining healthy lifestyle. Patient exhibits improved functional mobility and tolerance during the course of treatment sessions. No noted signs of discomfort or limitation during therapeutic exercises that entails functional and isolated exercises. Physical Therapy Plan Discharge Physical Therapy Discharge Comments Insurance limitations. Please Sign and Return: I have reviewed this Plan of Care and certify that the skilled therapy services above are required to meet the patient?s needs. Physician Signature Date Printed Name and Credentials Clinical Instructor Signature Printed Name and Credentials
--- NOTE | 2017-07-17 09:14 | PT.OTN ---
Current Diagnoses Other intervertebral disc displacement, lumbar region (07/17/17) Sciatica, right side (07/17/17) Physical Therapy Treatment Note PT-OP-A Visit Information Start: 06/10/17 08:12 Freq: Status: Active Protocol: Document 07/17/17 08:56 EA (Rec: 07/17/17 09:13 EA [id number]) Out-Patient Physical Therapy Visit Information Visit Information Visit Type Treatment Note Visit Start Time 08:15 Visit Stop Time 09:05 Total Visit Minutes 50 Visit Number 7 PT-OP-B Current Condition Start: 06/10/17 08:12 Freq: Status: Active Protocol: Document 06/30/17 12:19 EA (Rec: 06/30/17 12:24 EA [id number]) Current Condition History of Current Condition Onset Date 5 years Current Complaints Rightchronic low back pain History of Current Condition Gradual onset with no significant history of injury or surgery; multiple PT appointments in the past that helps but did not completely resolved. Medical reports reveals normal lumbar spine with no abnormality noted. Prior Treatments and Tests X-rays reports indicates no significant findings. Developmental History Developmental History Chronic low back pain Treatment Goals Patient/Caregiver Goals Eliminate low back pain so he could perform his job without difficulty. Prior Functional Status Baseline Function- ADL's Independent Baseline Function- Mobility Independent Current Functional Impairments (Reported) Functional Limitations- Work/School As per patient, limited due to pain with bending and lifting activities. PT-OP-C Subjective Start: 06/10/17 08:12 Freq: Status: Active Protocol: Document 07/17/17 08:56 EA (Rec: 07/17/17 09:13 EA [id number]) OP-PT Subjective Patient Comments Patient Comments Patient reports that he feels much improve and low back pain pain decreased in frequency and instensity. Patient states that he wants to learn more HEP and cont. to do it to prevent back pain occurences. Patient Reported Progress Improving PT-OP-E Functional Tests Start: 06/10/17 08:12 Freq: Status: Active Protocol: Document 06/30/17 12:30 EA (Rec: 06/30/17 12:52 EA [id number]) Functional Tests Other walk on heel and toes Comment did not elcit weakness or pain to low back. PT-OP-F Manual Assessment Start: 06/10/17 08:12 Freq: Status: Active Protocol: Document 06/30/17 12:30 EA (Rec: 06/30/17 12:52 EA [id number]) Manual Assessments Soft Tissue Assessment Soft Tissue Mobility Assessment Grade 1 tender over R SI joint . Other Manual Assessments Other Manual Assessments Tightness to biletaral Hip flexors/qudas, IT band, and hi ER. PT-OP-G Mobility & Gait Start: 06/10/17 08:12 Freq: Status: Active Protocol: Document 06/30/17 12:30 EA (Rec: 06/30/17 12:52 EA [id number]) Stair Climbing Evaluation Evaluation Level of Assist On Stairs Independent Devices Stair Climbing Assistive Devices None PT-OP-H Neuro Start: 06/10/17 08:12 Freq: Status: Active Protocol: Document 06/30/17 12:30 EA (Rec: 06/30/17 12:52 EA [id number]) Sensation Evaluation Gross Sensation Gross Sensation WNL Comments Summary Comments WFL as to sensory and propriocetion to both LE's Deep Tendon Reflex & Clonus Assessment Deep Tendon Reflex Bilateral Patellar Deep Tendon Reflex 2+ Normal Muscle Tone Tone Assessment Right Flexor Tone Description Normal Extensor Tone Description Normal PT-OP-J Posture/Palpation/Skin Start: 06/30/17 12:42 Freq: Status: Active Protocol: Document 06/30/17 12:52 EA (Rec: 06/30/17 12:54 EA [id number]) Posture Evaluation Position Standing L-Spine Posture Increased Lordosis Pelvis Posture Anteriorly Tilted Palpation Assessment Location One Palpation Location IT band, Low back, hip flexors and hi rotators. Palpation Findings Soft Tissue Tightness PT-OP-M Strength Start: 06/10/17 08:12 Freq: Status: Active Protocol: Document 06/30/17 12:30 EA (Rec: 06/30/17 12:52 EA [id number]) Trunk Strength Trunk Manual Muscle Testing Flexion 5 Normal Extension 5 Normal Rotation Left 5 Normal Rotation Right 5 Normal Lateral Flexion Left 5 Normal Lateral Flexion Right 5 Normal Knee Strength Knee Manual Muscle Testing Right Reason Not Measured WFL PT-OP-Q Treatments Start: 06/10/17 08:12 Freq: Status: Active Protocol: Document 07/17/17 08:56 EA (Rec: 07/17/17 09:13 EA [id number]) Cardio Equipment Recumbent Stepper (Sci-Fit) Duration (Minutes) 5 Resistance 3 Therapeutic Exercises Supine Exercises Stretched: Bilat periformis, Thoralumbars, gluteals Side bilateral Reps/Minutes 30 SH x 2 Comments Supine and sitted: HEP component Prone Exercises Prone childe pose x 2 reps x 15SH each sides Side bilateral Reps/Minutes x 15 SH x 2 reps Comments HEP Prone knee bent Low trunk rotation x 15 reps x 2 sets Side bilateral Reps/Minutes x 15 reps x 2 sets Comments HEP Sidelying Exercises 1 Sidelying Exercise Name foam roller to IT band Side bilateral Reps/Minutes x 1-2 mins each Comments HEP component Standing Exercises 3 Standing Exercise Name Half kneeling IT band, hip flexors and QL stretch Reps/Minutes x 30SH x 2 reps Comments HEP components 2 Standing Exercise Name GTB uppre trunk rotation Reps/Minutes 10 reps x 2 Comments HEP component 1 Standing Exercise Name Lifting, pulling activities floor to waist level Reps/Minutes x 10 reps x 2 sets Comments HEP components PT-OP-R Modalities Start: 06/10/17 08:12 Freq: Status: Active Protocol: Document 07/17/17 09:13 EA (Rec: 07/17/17 09:13 EA [id number]) Electric Stimulation Electric Stimulation Interferential Current (IFC) Duration (Minutes) 15 Intensity 23 Contraction Type Normal Target/Sweep Target High/Low High Patient Position Prone Combined With Heat/Cold Hot Pack PT-OP-T Assessment and Plan Start: 06/10/17 08:12 Freq: Status: Active Protocol: Document 07/17/17 08:56 EA (Rec: 07/17/17 09:13 EA [id number]) Physical Therapy Assessment Goals Three LTG Duration Reached Two Impairment Tight bilateral HIP flexors, ERotators, IT band, Quads Toddler Lead Teacher Goal (LTG) Patient will exhibit full excursion to bilateral hip rotators, flexors, IT band and quads to improve lumbar alignment. LTG Duration 4 wks One Impairment Increased Lumbar lordosis [facility] Goal (LTG) Patient roger exhibit neutral lumbar curve in all dynamic mobility to decrease lumbar strain. LTG Duration reached goals Assessment Summary Assessment Patient is discharged today due to insurance limitation. Patient educated with HEP, preventative measures and maintaining healthy lifestyle. Patient exhibits improved functional mobility and tolerance during the course of treatment sessions. No noted signs of discomfort or limitation during therapeutic exercises that entails functional and isolated exerecises. Physical Therapy Plan Discharge Physical Therapy Discharge Comments Insurance limitations. Please Sign and Return: I have reviewed this Plan of Care and certify that the skilled therapy services above are required to meet the patient?s needs. Physician Signature Date Printed Name and Credentials Clinical Instructor Signature Printed Name and Credentials
== END 2017-07-24 09:21 ==
LOC: PHYS 08:15
PROVIDERS: Family Provider Family Medicine; PCP Family Medicine; Visit Provider Physician Assistant
DX: M51.26 Other intervertebral disc displacement, lumbar region (principal); M54.31 Sciatica, right side
CPT/HCPCS: 97010; 97014; 97110; 97140; 97535; G0283

== ENCOUNTER → 2017-10-30 12:02 | Outpatient (CLI) | payer OTHER, MEDICAID, SELFPAY ==
[2017-10-30 14:22] LABS: Cholesterol 154 mg/dL (140-199); Glucose 80 mg/dL (70-100); HDL Cholesterol 45 mg/dL (40-60); LDL Cholesterol Calculated 93 mg/dL (<100); Triglycerides 79 mg/dL (35-150)
== END ==
PROVIDERS: PCP Family Medicine; Visit Provider Family Medicine
DX: Z13.1 Encounter for screening for diabetes mellitus (principal); Z13.220 Encounter for screening for lipoid disorders
CPT/HCPCS: 36415; 80061; 82947

== ENCOUNTER → 2017-12-05 17:44 | Outpatient (CLI) | payer OTHER, MEDICAID, SELFPAY ==
--- NOTE | 2017-12-05 | DI.MRI.S_ITS ---
PROCEDURE: MR LUMBAR SPINE WO CON INDICATIONS: LOW BACK PAIN TECHNIQUE: Noncontrast sagittal T1 spin echo and T2 fast echo, sagittal STIR, axial T1 and T2 fast spin echo through the lumbar spine. In cases with scoliosis, additional coronal T2 fast spin echo may be performed. COMPARISON: [facility], MR, L-SPINE WITHOUT CONTRAST, 09/30/2012, 7:50. [facility], CR, XR LUMBAR SPINE WITH OBLIQUES, 11/24/2017, 16:30. FINDINGS: Image quality: Partially degraded by motion artifact. Alignment and Curvature: 5 lumbar type vertebral bodies are present by plain film. There is normal bony alignment. Left L5-S1 pars interarticularis defect. Bone Marrow: Marrow is of normal overall signal. No acute vertebral body compression fractures. Mild reactive signal within the endplates adjacent to the the L4-L5 and L5-S1 intervertebral discs. Spinal Cord: Conus medullaris terminates at the upper L2 level. Visualized cord demonstrates normal signal and size. Paraspinous Soft Tissues: No paravertebral masses. L1-L2: Normal appearance. L2-L3: Normal appearance. L3-L4: Mild facet hypertrophy bilaterally. No significant canal, nor foraminal stenosis. L4-L5: Mild disc height loss and desiccation. Mild diffuse disc bulge with superimposed right postero-lateral and right far lateral broad-based protrusion. Mild bilateral facet hypertrophy. Mild canal stenosis. Mild bilateral foraminal stenosis. There is abutment of the right L4 nerve root lateral to the neural foramen, which is new compared to prior examination. L5-S1: Moderate disc height loss and desiccation. Mild diffuse disc bulge with superimposed broad-based right paracentral and posterior lateral protrusion. Mild facet hypertrophy bilaterally. Mild canal stenosis. Increased, moderate to severe right foraminal stenosis. No left foraminal stenosis. Mild flattening deformity of the right L5 nerve root within the neural foramen. There is decreased, mild posterior deviation of the right S1 nerve root within the lateral recess. IMPRESSION: 1. Multilevel degenerative disc and facet disease. 2. Mild multilevel canal stenoses. 3. Multilevel foraminal stenoses, worst at L5-S1 on the right, where there is mild flattening deformity of the right L5 nerve root within the neural foramen. 4. Decreased, mild posterior deviation of the right S1 nerve root at the L5-S1 disc space level. 5. Disc disease L4-L5, causing abutment of the right L4 nerve root lateral to the neural foramen at the L4-L5 disc space level. 6. Recommend correlation with clinical symptoms to ascertain relevance of these findings. Dictated by: Jocelyn Hernandez M.D. on 12/08/2017 at 10:53 Approved by: Jocelyn Hernandez M.D. on 12/08/2017 at 10:59
== END ==
PROVIDERS: PCP Family Medicine; Visit Provider Physician Assistant
DX: M51.37 Other intervertebral disc degeneration, lumbosacral region (principal); M51.36 Other intervertebral disc degeneration, lumbar region; M51.26 Other intervertebral disc displacement, lumbar region; M48.061 Spinal stenosis, lumbar region without neurogenic claudication; M48.07 Spinal stenosis, lumbosacral region
CPT/HCPCS: 72148

== ENCOUNTER 2018-01-03 23:43 | Emergency (ER) | payer OTHER, MEDICAID, SELFPAY ==
[2018-01-04 00:02] VITALS: BP 117/78; PULSE 92; RESP 15; TEMP 36.9; O2SAT 96; BMI 21.7
== END 2018-01-04 01:18 | disposition left against medical advice (07) ==
PROVIDERS: PCP Family Medicine
DX: M54.9 Dorsalgia, unspecified (principal)
CPT/HCPCS: 99281; 99282

== ENCOUNTER → 2018-02-04 12:53 | Outpatient (CLI) | payer OTHER, MEDICAID, SELFPAY ==
--- NOTE | 2018-02-04 | DI.US.S_ITS ---
PROCEDURE: US ABDOMEN COMPLETE INDICATIONS: ABDOMINAL PAIN TECHNIQUE: Real-time scanning was performed of the abdominal and retroperitoneal organs, with image documentation. COMPARISON: [facility], US, ABDOMEN COMPLETE, 09/11/2016, 11:14. [facility], US, ABDOMEN COMPLETE, 11/28/2016, 7:59. FINDINGS: Liver: Liver is normal in size and homogeneous in echotexture. 2 rounded solid echogenic mass is present largest measuring 1.6 x 1.5 x 1.6 and the smaller 1.0 x 0.9 x 0.9 cm which appears unchanged from prior exam. Gallbladder: Absent. Biliary ducts: Intrahepatic bile ducts are non-dilated. Extrahepatic bile duct caliber measures 5.0 mm. Normal is 6-7 mm or less in diameter, or 10 mm or less post-cholecystectomy. Pancreas: Visualized portions of the pancreas are sonographically normal. Spleen: Spleen is normal in size and homogeneous in echotexture. Kidneys: Kidneys are normal in size and echotexture. Right kidney measures 10.3 cm long; left kidney measures 11.7 cm long. No hydronephrosis or nephrolithiasis. No solid masses. Aorta: Visualized aorta is normal in caliber at less than 3 cm. Iliacs: Proximal common iliac arteries are normal in caliber at less than 2.5 cm. IVC: Intrahepatic inferior vena cava is patent. Miscellaneous: No free abdominal fluid. IMPRESSION: 1. Probable cavernous hemangioma presents given the sonographic appearance. Recommend sequential follow up sonography at 6, 12 and 24 month intervals for surveillance. Dictated by: Jorge Alberto Levin [facility] Interpreted: Brown Orozco MD on 02/04/2018 at 14:29 Approved by: Brown Orozco M.D. on 02/04/2018 at 17:15
== END ==
PROVIDERS: PCP Family Medicine; Visit Provider Orthopaedic Surgery
DX: R10.9 Unspecified abdominal pain (principal); R16.0 Hepatomegaly, not elsewhere classified; Z90.49 Acquired absence of other specified parts of digestive tract
CPT/HCPCS: 76700

== ENCOUNTER 2018-06-09 21:00 | Emergency (ER) | payer OTHER, MEDICAID, SELFPAY ==
[2018-06-09 21:12] VITALS: BP 121/73; PULSE 72; RESP 18; TEMP 37; O2SAT 100; BMI 22.4
--- NOTE | 2018-06-09 21:18 | ED.HA ---
HPI - Headache General Chief Complaint: Headache Stated Complaint: STATES MIGRAINE Time Seen by Provider: 06/09/18 21:18 Source: patient Mode of arrival: ambulatory Limitations: no limitations History of Present Illness HPI Narrative: Patient is a 57-year-old male with a history of migraines. He states that he is here with 1 of his typical migraines. He states that he has sumatriptan at home. He states that he took it twice before coming here to the emergency department and did not change his headache. He states that this normally does help his headaches. He states that the headache is currently experiencing is 1 of his typical migraines. It was not a sudden onset. No fevers. No neck pain. Does have some photophobia. Related Data Home Medications Medication Instructions Recorded Confirmed magnesium amino acid chelate #0 02/13/17 05/16/18 ranitidine 150 mg tablet 150 mg PO DAILY 08/19/17 05/16/18 pantoprazole 40 mg tablet,delayed 40 mg PO DAILY 05/16/18 05/16/18 release Previous Rx's Medication Instructions Recorded oxycodone 5 mg capsule 5 mg PO Q6H PRN #15 cap 01/07/18 sumatriptan 50 mg tablet 50 mg PO Q2H PRN #30 tab 03/20/18 trazodone 100 mg tablet 100 mg PO DAILY #30 tab 03/20/18 sucralfate 100 mg/mL oral 10 ml PO QID #420 ml 05/16/18 suspension duloxetine 30 mg capsule,delayed 30 mg PO DAILY #60 cap 05/25/18 release Allergies Allergy/AdvReac Type Severity Reaction Status Date / Time nortriptyline [NORTRIPTYLINE] Allergy Unknown Verified 05/25/18 16:07 tramadol AdvReac Mild rash Verified 05/25/18 16:07 Review of Systems Constitutional Denies fever(s) and Reports headache(s) Eyes Reports photophobia ENT Ears, Nose, Mouth, and Throat: Reports headache(s) and Denies disequilibrium Cardiovascular Denies chest pain and Denies dyspnea Respiratory Denies dyspnea Integumentary/Breasts Denies rash Neurologic Reports headache(s) and Denies disequilibrium Hematologic/Lymphatic Denies easy bleeding and Denies easy bruising [facility] [place] Medical History Degenerative joint disease (DJD) of lumbar spine (Chronic) Hyperlipidemia, mild (Chronic) Anemia (Resolved 2006) BRBPR (bright red blood per rectum) (Resolved 2006) Chicken pox (Resolved) Ibuprofen adverse reaction (Resolved) Measles (Resolved) Stomach ulcer (Resolved) Surgical History (Updated 08/19/17 @ 09:14 by Betsy Sanchez) Anesthesia (Resolved) History of colonoscopy (Resolved 2006) History of colonoscopy (Resolved 2016) History of repair of left rotator cuff (Resolved 2001) Status post left foot surgery (Resolved 1987) Family History (Updated 08/19/17 @ 09:19 by Betsy Sanchez) Father Age: 88 Prostate cancer Aging Pacemaker Grandfather Heart disease Heart attack Smoker Grandmother Mental health problem Alzheimer's disease Grandfather No problems noted. Grandmother No problems noted. Mother Aging IBS (irritable bowel syndrome) Sister Liver disease Social History marital status: pets and animals: Yes education level: college other: walking,boating,gardening Smoking Status: Never smoker alcohol intake: never during the past year weight has: remained stable well-balanced diet: about half the time daily servings fruits/ve-1 caffeine: Yes (rare) eating out: rarely or never Type(s) of exercise: walking Family History (Updated 08/19/17 @ 09:19 by Betsy Sanchez) Father Age: 88 Prostate cancer Aging Pacemaker Grandfather Heart disease Heart attack Smoker Grandmother Mental health problem Alzheimer's disease Grandfather No problems noted. Grandmother No problems noted. Mother Aging IBS (irritable bowel syndrome) Sister Liver disease Social History marital status: pets and animals: Yes education level: college other: walking,boating,gardening Smoking Status: Never smoker alcohol intake: never during the past year weight has: remained stable well-balanced diet: about half the time daily servings fruits/ve-1 caffeine: Yes (rare) eating out: rarely or never Type(s) of exercise: walking Exam Initial Vital Signs Initial Vital Signs: Vital Signs Temperature 98.6 F 06/09/18 21:12 Pulse Rate 72 06/09/18 21:12 Respiratory Rate 18 06/09/18 21:12 Blood Pressure 121/73 06/09/18 21:12 Pulse Oximetry 100 06/09/18 21:12 Const General: cooperative, healthy appearing, comfortable, well developed, well groomed and No acute distress Orientation: alert, awake and oriented x3 HENMT Head: normal to inspection and normocephalic Nose: external nose normal Eyes Pupils: PERRL Resp Effort & Inspection: normal respiratory effort Cardio Rate: regular rate Skin Lesions: no lesions Rashes: no rashes Neuro General: alert, awake and oriented x3 Cranial Nerves: CN's II-XI intact bilaterally Cognition: normal cognition Speech: speech normal Extrem General: normal to inspection and capillary refill normal Psych Appearance: grossly normal and well kempt Course Orders Ordered: Discontinued Medications Diphenhydramine HCl (Benadryl) 25 mg IV NOW ONE Stop: 06/09/18 21:27 Last Admin: 06/09/18 21:51 Dose: 25 mg Sodium Chloride (Normal Saline 0.9%) 1,000 mls @ 1,000 mls/hr IV BOLUS ONE Stop: 06/09/18 22:25 Last Infusion: 06/09/18 23:04 Dose: 0 mls/hr Admin: 06/09/18 21:51 Dose: 1,000 mls/hr Metoclopramide HCl (Reglan) 10 mg IV NOW ONE Stop: 06/09/18 21:27 Last Admin: 06/09/18 21:52 Dose: 10 mg Vital Signs - 8 hr 06/09/18 21:12 06/09/18 22:55 Temperature 98.6 F Pulse Rate 72 68 Respiratory Rate 18 14 Blood Pressure 121/73 129/64 Pulse Oximetry 100 98 MDM - Headache MDM Narrative Medical decision making narrative: Patient here with what he states is 1 of his typical migraines. He was given IV medications and reported a almost complete resolution of all his symptoms. Will hold on a CT scan for now. He does have medications at home. He is asking to go home. Will hold on further workup for now. Patient was given return precautions and follow-up instructions. He expressed understanding and agreement with plan. Discharge Plan Departure Patient Disposition: Home Clinical Impression: Migraine Qualifiers: Migraine type: unspecified Status migrainosus presence: without status migrainosus Intractability: not intractable Qualified Code(s): G43.909 - Migraine, unspecified, not intractable, without status migrainosus Discharge Date/Time: 06/09/18 22:55 Interventions: ED Discharge Assessment Last Done: 06/09/18 22:55 Instructions: DI for Migraine Activity Restrictions/Additional Instructions: Continue all of your medications as directed. Return to the emergency department for any new or worsening symptoms. Call your primary care doctor for follow-up. Prescriptions: No Action pantoprazole [Protonix] 40 mg tablet,delayed release (DR/EC) 40 mg PO DAILY RF: 0 sucralfate 100 mg/mL suspension 10 ml PO QID Qty: 420 RF: 0 magnesium amino acid chelate 100 mg Tablet Qty: 0 RF: 0 oxycodone 5 mg capsule 5 mg PO Q6H PRN (Reason: pain) Qty: 15 RF: 0 trazodone 100 mg tablet 100 mg PO DAILY Qty: 30 RF: 2 sumatriptan succinate 50 mg tablet 50 mg PO Q2H PRN (Reason: migraine headache) Qty: 30 RF: 10 ranitidine HCl [Acid Control (ranitidine)] 150 mg tablet 150 mg PO DAILY RF: 0 duloxetine 30 mg capsule,delayed release(DR/EC) 30 mg PO DAILY Qty: 60 RF: 2 Referrals: Emeli Goode MD [Primary Care Provider] -
[2018-06-09] MEDS: SODIUM CHLORIDE 0.9% 1,000 ML 1000 ML IV (21:51)
[2018-06-09] MEDS: diphenhydrAMINE 50 MG/ML VIAL 25 MG IV (21:51)
[2018-06-09] MEDS: METOCLOPRAMIDE 10 MG/2 ML INJ IV (21:52)
[2018-06-09 22:55] VITALS: BP 129/64; PULSE 68; RESP 14; O2SAT 98
== END 2018-06-09 22:55 | disposition home or self-care (01) ==
PROVIDERS: Emergency Provider Emergency Medicine; Family Provider Family Medicine; PCP Family Medicine
DX: G43.909 Migraine, unspecified, not intractable, without status migrainosus (principal)
CPT/HCPCS: 96361; 96374; 96375; 99283; 99284; J1200; J2765

== ENCOUNTER → 2018-06-16 17:07 | Outpatient (CLI) | payer OTHER, MEDICAID, SELFPAY ==
[2018-06-16 19:31] LABS: Hep C Virus Ab w/Reflex Quant NEGATIVE s/c (NEGATIVE)
== END ==
PROVIDERS: Family Provider Family Medicine; PCP Family Medicine; Visit Provider Family Medicine
DX: Z11.59 Encounter for screening for other viral diseases (principal)
CPT/HCPCS: 36415; 86803

== ENCOUNTER → 2018-07-22 15:31 | Outpatient (CLI) | payer OTHER, MEDICAID, SELFPAY ==
--- NOTE | 2018-07-22 | DI.US.S_ITS ---
PROCEDURE: US ABDOMEN COMPLETE INDICATIONS: LIVER LESION TECHNIQUE: Real-time scanning was performed of the abdominal and retroperitoneal organs, with image documentation. COMPARISON: [facility], US, US ABDOMEN COMPLETE, 02/04/2018, 13:14. FINDINGS: Liver: There are 2 discrete areas of hyperechogenicity within the liver, one in the right lobe measuring 1.0 x 0.8 x 0.8 cm, stable size. The other is in the dorsal left lobe measuring 2.0 x 1.4 x 1.5 cm, previously 1.6 x 1.5 x 1.6 cm. Small amount of blood flow surrounds the left lobe liver lesion. No other solid liver lesions. There is minor intrahepatic biliary dilatation. Gallbladder: Gallbladder is surgically absent. Biliary ducts: Intrahepatic bile ducts are non-dilated. Extrahepatic bile duct caliber measures 5 mm. Normal is 6-7 mm or less in diameter, or 10 mm or less post-cholecystectomy. Pancreas: Visualized portions of the pancreas are sonographically normal. Spleen: Spleen is normal in size and homogeneous in echotexture. Kidneys: Kidneys are normal in size and echotexture. Right kidney measures 10.4 cm long; left kidney measures 11.9 cm long. No hydronephrosis or nephrolithiasis. No solid masses. A submillimeter cortical medullary cystic structure in the lower pole left kidney. Slight prominence of the right extrarenal pelvis. Aorta: Visualized aorta is normal in caliber at less than 3 cm. Iliacs: Proximal common iliac arteries are normal in caliber at less than 2.5 cm. IVC: Intrahepatic inferior vena cava is patent. Miscellaneous: No free abdominal fluid. IMPRESSION: 1. There are 2 hyperechoic liver lesions, likely benign hemangiomas. Continued followup with ultrasound in 6 months is recommended. 2. Cholecystectomy and minor, expected intrahepatic biliary dilatation. Dictated by: Aliya Muro M.D. on 07/23/2018 at 10:08 Approved by: Aliya Muro M.D. on 07/23/2018 at 10:14
== END ==
PROVIDERS: PCP Family Medicine; Visit Provider Internal Medicine Gastroenterology
DX: K76.9 Liver disease, unspecified (principal); Z90.49 Acquired absence of other specified parts of digestive tract
CPT/HCPCS: 76700

== ENCOUNTER 2018-09-01 21:29 | Emergency (ER) | payer OTHER, MEDICAID, SELFPAY ==
[2018-09-01 21:39] VITALS: BP 119/77; PULSE 78; RESP 18; TEMP 36.9; O2SAT 99
--- NOTE | 2018-09-01 22:24 | ED.ABDPAIN ---
HPI - Abdominal Pain General Chief Complaint: Abdominal Pain Stated Complaint: LEFT SIDE PAIN Time Seen by Provider: 09/01/18 21:35 Source: patient and family Mode of arrival: ambulatory Limitations: no limitations History of Present Illness HPI narrative: 58-year-old male nonsmoker with history of herpes zoster presents with left flank pain in the absence of provocation, palliation or radiation. He denies any injury. He has had no dysuria, frequency or urgency. He denies any fever, chills nor nausea, vomiting, diarrhea or constipation. He states he has had this sensation multiple times over the past few years and through extensive research, he and his primary care provider have a strong suspicion that this is internal shingles. He has an appointment coming up next week with his PCP. He states his pain started about 5 days ago and then went away without any outside influence for 4 days and returned again today MD complaint: flank pain Onset (ago): day(s) Pain Consistency: intermittent Location: L flank Quality: aching Radiation: none Relieving factors: nothing Exacerbating factors: nothing Associated symptoms: denies other symptoms Related Data Home Medications Medication Instructions Recorded Confirmed magnesium amino acid chelate #0 02/13/17 05/16/18 ranitidine 150 mg tablet 150 mg PO DAILY 08/19/17 05/16/18 pantoprazole 40 mg tablet,delayed 40 mg PO DAILY 05/16/18 05/16/18 release Previous Rx's Medication Instructions Recorded oxycodone 5 mg capsule 5 mg PO Q6H PRN #15 cap 01/07/18 sumatriptan 50 mg tablet 50 mg PO Q2H PRN #30 tab 03/20/18 sucralfate 100 mg/mL oral 10 ml PO QID #420 ml 05/16/18 suspension duloxetine 30 mg capsule,delayed 30 mg PO DAILY #60 cap 05/25/18 release trazodone 100 mg tablet 100 mg PO DAILY #30 tab 06/29/18 lidocaine 5 % topical ointment 1 applictn TOP TID-QID PRN #30 gram 08/11/18 valacyclovir 1,000 mg PO Q8H 7 Days #21 tab 09/01/18 Allergies Allergy/AdvReac Type Severity Reaction Status Date / Time nortriptyline [NORTRIPTYLINE] Allergy Unknown Verified 05/25/18 16:07 tramadol AdvReac Mild rash Verified 05/25/18 16:07 Review of Systems Constitutional Denies chills, Denies fever(s), Denies lethargy and Denies weakness Eyes Denies change in vision, Denies eye discharge, Denies irritation and Denies loss of vision ENT Ears, Nose, Mouth, and Throat: Denies change in voice, Denies neck pain and Denies sore throat Cardiovascular Denies chest pain, Denies irregular heart rhythm, Denies lightheadedness, Denies palpitations, Denies dyspnea, Denies dyspnea on exertion and Denies orthopnea Respiratory Denies cough, Denies dyspnea, Denies dyspnea on exertion and Denies wheezing Gastrointestinal Gastrointestinal: Denies abdominal pain, Denies change in bowel habits, Denies diarrhea, Denies nausea and Denies vomiting Genitourinary Denies hematuria, Reports flank pain, Denies urinary incontinence and Denies urinary urgency Musculoskeletal Denies neck pain Integumentary/Breasts Denies pruritus, Denies erythema, Denies rash and Denies wounds Neurologic Denies confusion, Denies loss of vision and Denies weakness Psychiatric Denies anxiety, Denies confusion, Denies depression, Denies homicidal ideation and Denies suicidal ideation Endocrine Denies palpitations Hematologic/Lymphatic Denies easy bruising Allergic/Immunologic Denies wheezing PFSH Medical History Degenerative joint disease (DJD) of lumbar spine (Chronic) Hyperlipidemia, mild (Chronic) Anemia (Resolved 2006) BRBPR (bright red blood per rectum) (Resolved 2006) Chicken pox (Resolved) Ibuprofen adverse reaction (Resolved) Measles (Resolved) Stomach ulcer (Resolved) Surgical History Anesthesia (Resolved) History of colonoscopy (Resolved 2006) History of colonoscopy (Resolved 2016) History of repair of left rotator cuff (Resolved 2001) Status post left foot surgery (Resolved 1987) Family History (Updated 08/19/17 @ 09:19 by Betsy Sanchez) Father Age: 88 Prostate cancer Aging Pacemaker Grandfather Heart disease Heart attack Smoker Grandmother Mental health problem Alzheimer's disease Grandfather No problems noted. Grandmother No problems noted. Mother Aging IBS (irritable bowel syndrome) Sister Liver disease Social History marital status: pets and animals: Yes education level: college other: walking,boating,gardening Smoking Status: Never smoker alcohol intake: never during the past year weight has: remained stable well-balanced diet: about half the time daily servings fruits/ve-1 caffeine: Yes (rare) eating out: rarely or never Type(s) of exercise: walking Family History Father Age: 88 Prostate cancer Aging Pacemaker Grandfather Heart disease Heart attack Smoker Grandmother Mental health problem Alzheimer's disease Grandfather No problems noted. Grandmother No problems noted. Mother Aging IBS (irritable bowel syndrome) Sister Liver disease Social History marital status: pets and animals: Yes education level: college other: walking,boating,gardening Smoking Status: Never smoker alcohol intake: never during the past year weight has: remained stable well-balanced diet: about half the time daily servings fruits/ve-1 caffeine: Yes (rare) eating out: rarely or never Type(s) of exercise: walking Exam Narrative Exam Narrative: GENERAL: 58-year-old male appears stated age, resting comfortably and in no obvious distress, playing on cellphone HEAD: Atraumatic. Normocephalic. No temporal or scalp tenderness. EYES: Pupils equal round and reactive. Extraocular motions intact. No scleral icterus. No injection or drainage. ENT: Nose without bleeding, purulent drainage or septal hematoma. Throat without erythema, tonsillar hypertrophy or exudate. Uvula midline. Airway patent. NECK: Trachea midline. No JVD or lymphadenopathy. Supple, nontender, no meningeal signs. CARDIOVASCULAR: Regular rate and rhythm without murmurs, gallops, or rubs. RESPIRATORY: Clear to auscultation. Breath sounds equal bilaterally. No wheezes, rales, or rhonchi. GASTROINTESTINAL: Abdomen soft, non-tender, nondistended. No hepato-splenomegaly, or palpable masses. No guarding. EXTREMITIES: No clubbing, cyanosis, or edema. No joint tenderness, effusion, or edema noted. BACK: Nontender without deformity or crepitance. No flank tenderness. NEURO: AOx3. SKIN: No rash or erythema. Initial Vital Signs Initial Vital Signs: Vital Signs Temperature 98.5 F 09/01/18 21:39 Pulse Rate 78 09/01/18 21:39 Respiratory Rate 18 09/01/18 21:39 Blood Pressure 119/77 09/01/18 21:39 Pulse Oximetry 99 09/01/18 21:39 Course Orders Ordered: ED Orders 09/01/18 22:55 Urine Microscopic Stat Discontinued Medications Ketorolac Tromethamine (Toradol) 60 mg IM NOW ONE Stop: 09/01/18 23:15 Last Admin: 09/01/18 23:23 Dose: 60 mg Vital Signs - 8 hr 09/01/18 21:39 09/01/18 23:24 Temperature 98.5 F Pulse Rate 78 74 Respiratory Rate 18 12 Blood Pressure 119/77 122/84 Pulse Oximetry 99 99 MDM - Abdominal Pain Lab Data Lab Results 09/01/18 Range/Units 22:55 Urine RBC 0-1/hpf (0-5/HPF) Urine WBC 0-1/hpf (0-5/HPF) Urine Bacteria None seen (None) Urine Mucus 4+ H (Negative) Ur Culture Indicated? Cult not indicated Point of care testing: Urine Dip Bedside Urine Glucose Negative Bedside Urine Bilirubin - Negative Bedside Urine Ketone - Negative Urine Specific [place] 1.030 Bedside Urine Occult Blood +/- Bedside Urine pH 5.5 Bedside Urine Protein + 30 Bedside Urine Urobilinogen - Negative Bedside Urine Nitrite - Negative Bedside Urine Leukocytes - Negative Esterase MDM Narrative Medical decision making narrative: Multiple etiologies for patient's symptoms considered including: [Urinary tract infection including pyelonephritis, however this is thought less likely given lack of findings on urine. Kidney stone considered but thought less likely given lack of hematuria, and achy nature of pain opposed to sharp, stabbing colicky pain. Diverticulitis and other inflammatory versus infectious conditions of the bowel considered but thought less likely given lack of reproducible pain or change in bowel] Patient's symptoms improved or duration of stay with above-stated therapies. Findings and discharge diagnosis discussed with patient/family followed by verbalization of understanding Return precautions discussed with patient/family whom verbalize understanding. Discharge Plan Departure Patient Disposition: Home Clinical Impression: Acute flank pain Discharge Date/Time: 09/01/18 23:25 Interventions: ED Discharge Assessment Last Done: 09/01/18 23:24 Instructions: DI for Flank Pain Activity Restrictions/Additional Instructions: *You have been diagnosed with [acute left flank pain. Urinary infection, kidney infection, kidney stone, diverticulitis and other diagnoses considered but thought less likely] *What to do: *Take medications as directed *Follow up with your primary care provider in 2-3 days, call for an appointment. Let them know you were seen in the Emergency Department and that we ask that you be seen in follow up *Return to ER if you should have any new, worsening or concerning symptoms, such as [worsening pain, fever over 101 F, persistent vomiting or other bothersome symptoms] Prescriptions: New valacyclovir 1 gram tablet 1,000 mg PO Q8H 7 Days Qty: 21 RF: 0 No Action pantoprazole [Protonix] 40 mg tablet,delayed release (DR/EC) 40 mg PO DAILY RF: 0 sucralfate 100 mg/mL suspension 10 ml PO QID Qty: 420 RF: 0 lidocaine 5 % ointment 1 applictn TOP TID-QID PRN (Reason: pain) Qty: 30 RF: 2 magnesium amino acid chelate 100 mg Tablet Qty: 0 RF: 0 trazodone 100 mg tablet 100 mg PO DAILY Qty: 30 RF: 0 oxycodone 5 mg capsule 5 mg PO Q6H PRN (Reason: pain) Qty: 15 RF: 0 sumatriptan succinate 50 mg tablet 50 mg PO Q2H PRN (Reason: migraine headache) Qty: 30 RF: 10 ranitidine HCl [Acid Control (ranitidine)] 150 mg tablet 150 mg PO DAILY RF: 0 duloxetine 30 mg capsule,delayed release(DR/EC) 30 mg PO DAILY Qty: 60 RF: 2 Referrals: Jermaine Liu MD [Primary Care Provider] -
[2018-09-01 23:06] LABS: Bacteria Urine None Seen
[2018-09-01 23:15] LABS: Culture Indicated Urine Cult Not Indicated; Mucus Urine 4+ (Negative); RBC Urine 0-1/HPF (0-5/HPF); WBC Urine 0-1/HPF (0-5/HPF)
[2018-09-01] MEDS: KETOROLAC 60 MG/2 ML VIAL IM (23:23)
[2018-09-01 23:24] VITALS: BP 122/84; PULSE 74; RESP 12; O2SAT 99
== END 2018-09-01 23:25 | disposition home or self-care (01) ==
PROVIDERS: Emergency Provider Emergency Medicine; Family Provider Family Medicine; PCP Family Medicine
DX: R10.9 Unspecified abdominal pain (principal)
CPT/HCPCS: 81003; 81015; 96372; 99282; 99283; J1885

== ENCOUNTER 2018-10-29 17:58 | Emergency (ER) | payer OTHER, MEDICAID, SELFPAY ==
[2018-10-29 18:07] VITALS: BP 122/76; PULSE 82; RESP 15; TEMP 36.7; O2SAT 98; BMI 21.7
[2018-10-29] MEDS: predniSONE 20 MG TABLET 60 MG PO (18:50)
[2018-10-29] MEDS: CYCLOBENZAPRINE 10 MG TABLET PO (18:50)
[2018-10-29] MEDS: KETOROLAC 60 MG/2 ML VIAL IM (18:51)
[2018-10-29] MEDS: LIDOCAINE PATCH 1 EACH ADH..PATCH TOP (18:51)
[2018-10-29] MEDS: HYDROCODONE/ACET 5/325 TABLET 1 TAB PO (19:54)
--- NOTE | 2018-10-29 20:03 | ED.BACK ---
HPI - Back Pain/Injury <Daija EllisGIRMAP-BC - Last Filed: 10/29/18 20:16> General Chief Complaint: Back Pain/Injury Stated Complaint: BACK PAIN Time Seen by Provider: 10/29/18 18:06 Source: patient Mode of arrival: Ambulatory Limitations: no limitations History of Present Illness HPI Narrative: The patient is a 58-year-old male with history of chronic back issues who presents with his for chief complaint of low back pain. He states that his back when out today. He states he is waiting for insurance approval for an MRI in seeing orthopedics. He denies any numbness, tingling, incontinence bowel, incontinence of bladder or saddle anesthesia. He presents requesting a steroid injection into his spine. I discussed that this would not happen in the emergency department. He has tried Robaxin at home without relief of his pain. He presents wearing an old back brace. Related Data Home Medications Medication Instructions Recorded Confirmed magnesium amino acid chelate #0 02/13/17 05/16/18 ranitidine HCl 150 mg tablet 150 mg PO DAILY 08/19/17 05/16/18 pantoprazole 40 mg tablet,delayed 40 mg PO DAILY 05/16/18 05/16/18 release Previous Rx's Medication Instructions Recorded oxycodone 5 mg capsule 5 mg PO Q6H PRN #15 cap 01/07/18 sumatriptan succinate 50 mg tablet 50 mg PO Q2H PRN #30 tab 03/20/18 sucralfate 100 mg/mL oral 10 ml PO QID #420 ml 05/16/18 suspension duloxetine 30 mg capsule,delayed 30 mg PO DAILY #60 cap 05/25/18 release trazodone 100 mg tablet 100 mg PO DAILY #30 tab 06/29/18 lidocaine 5 % topical ointment 1 applictn TOP TID-QID PRN #30 gram 08/11/18 cyclobenzaprine 10 mg PO TID PRN #20 tab 10/29/18 hydrocodone-acetaminophen 1 tab PO Q4-6H PRN #5 tab 10/29/18 ketorolac 10 mg PO QID PRN #20 tab 10/29/18 prednisone 50 mg PO DAILY #5 tab 10/29/18 Allergies Allergy/AdvReac Type Severity Reaction Status Date / Time nortriptyline [NORTRIPTYLINE] Allergy Unknown Verified 10/29/18 18:07 tramadol AdvReac Mild rash Verified 10/29/18 18:07 Review of Systems <ANA Galvez - Last Filed: 10/29/18 20:16> Review of Systems Narrative: GENERAL: Denies chills, fatigue, malaise, fever, sweats. HEENT: Denies sinus pain, ear pain, sore throat, difficulty swallowing, dizziness. RESPIRATORY: Denies dyspnea, cough, wheezing, hemoptysis, sputum. CARDIOVASCULAR: Denies chest pain, palpitations, orthopnea, edema, GASTROINTESTINAL: Denies nausea, vomiting, abdominal pain, diarrhea, constipation, melena. : Denies dysuria, frequency, incontinence, hematuria, urinary retention. MUSCULOSKELETAL: See HPI SKIN: Denies rash, skin lesions, or other NEUROLOGIC: Denies weakness, headache, numbness, change in speech, confusion, seizures, incoordination. PSYCHIATRIC: No concerning psychosocial issues. 12 point review of systems is negative except for those stated above PFSH <ANA Galvez - Last Filed: 10/29/18 20:16> Medical History Anemia (Resolved 2006) BRBPR (bright red blood per rectum) (Resolved 2006) Chicken pox (Resolved) Degenerative joint disease (DJD) of lumbar spine (Chronic) Hyperlipidemia, mild (Chronic) Ibuprofen adverse reaction (Resolved) Measles (Resolved) Stomach ulcer (Resolved) Surgical History Anesthesia (Resolved) History of colonoscopy (Resolved 2006) History of colonoscopy (Resolved 2016) History of repair of left rotator cuff (Resolved 2001) Status post left foot surgery (Resolved 1987) Family History Father Age: 88 Prostate cancer Aging Pacemaker Grandfather Heart disease Heart attack Smoker Grandmother Mental health problem Alzheimer's disease Grandfather No problems noted. Grandmother No problems noted. Mother Aging IBS (irritable bowel syndrome) Sister Liver disease Social History marital status: pets and animals: Yes education level: college other: walking,boating,gardening Smoking Status: Never smoker alcohol intake: never during the past year weight has: remained stable well-balanced diet: about half the time daily servings fruits/ve-1 caffeine: Yes (rare) eating out: rarely or never Type(s) of exercise: walking Family History Father Age: 88 Prostate cancer Aging Pacemaker Grandfather Heart disease Heart attack Smoker Grandmother Mental health problem Alzheimer's disease Grandfather No problems noted. Grandmother No problems noted. Mother Aging IBS (irritable bowel syndrome) Sister Liver disease Social History marital status: pets and animals: Yes education level: college other: walking,boating,gardening Smoking Status: Never smoker alcohol intake: never during the past year weight has: remained stable well-balanced diet: about half the time daily servings fruits/ve-1 caffeine: Yes (rare) eating out: rarely or never Type(s) of exercise: walking Exam <ANA Galvez - Last Filed: 10/29/18 20:16> Narrative Exam Narrative: GENERAL: This is a well-nourished, well-developed patient, wearing a back brace HEAD: Atraumatic. Normocephalic. No temporal or scalp tenderness. EYES: Pupils equal round and reactive. Extraocular motions intact. No scleral icterus. No injection or drainage. ENT: Nose without bleeding, purulent drainage or septal hematoma. Throat without erythema, tonsillar hypertrophy or exudate. Uvula midline. Airway patent. NECK: Trachea midline. No JVD or lymphadenopathy. Supple, nontender, no meningeal signs. CARDIOVASCULAR: Regular rate and rhythm without murmurs, gallops, or rubs. RESPIRATORY: Clear to auscultation. Breath sounds equal bilaterally. No wheezes, rales, or rhonchi. No cough. No increased respiratory effort. No accessory muscle use. GASTROINTESTINAL: Abdomen soft, non-tender, nondistended. No hepato-splenomegaly, or palpable masses. No guarding. EXTREMITIES: No clubbing, cyanosis, or edema. No joint tenderness, effusion, or edema noted. BACK: No palpable deformity or crepitance. No flank tenderness. No pain to palpation of C or T-spine. Diffuse tenderness to palpation of L-spine. Decreased range of motion all minaya. NEURO: AOx3. Equal strength upper and Extremities bilaterally. Stable gait. No gross cranial nerve deficit. Using all extremities equally. Clear speech. SKIN: No rash or erythema or ecchymosis noted on lower back. Initial Vital Signs Initial Vital Signs: Vital Signs Temperature 98.0 F 10/29/18 18:07 Pulse Rate 82 10/29/18 18:07 Respiratory Rate 15 10/29/18 18:07 Blood Pressure 122/76 10/29/18 18:07 Pulse Oximetry 98 10/29/18 18:07 <Anabella Marie DO - Last Filed: 10/29/18 22:09> Initial Vital Signs Initial Vital Signs: Vital Signs Temperature 98.0 F 10/29/18 18:07 Pulse Rate 82 10/29/18 18:07 Respiratory Rate 15 10/29/18 18:07 Blood Pressure 122/76 10/29/18 18:07 Pulse Oximetry 98 10/29/18 18:07 Course <GISELL Galvez-BC - Last Filed: 10/29/18 20:16> Orders Ordered: Discontinued Medications Hydrocodone Bitart/Acetaminophen ([place] 5/325) 1 tab PO NOW ONE Stop: 10/29/18 19:42 Last Admin: 10/29/18 19:54 Dose: 1 tab Documented by: RENETTA Cyclobenzaprine HCl (Flexeril) 10 mg PO NOW ONE Stop: 10/29/18 18:47 Last Admin: 10/29/18 18:50 Dose: 10 mg Documented by: CARLEY Ketorolac Tromethamine (Toradol) 60 mg IM NOW ONE Stop: 10/29/18 18:39 Last Admin: 10/29/18 18:51 Dose: 60 mg Documented by: CARLEY Lidocaine (Lidoderm) 1 each TOP NOW ONE Stop: 10/29/18 18:39 Last Admin: 10/29/18 18:51 Dose: 1 each Documented by: CARLEY Prednisone (Deltasone) 60 mg PO NOW ONE Stop: 10/29/18 18:39 Last Admin: 10/29/18 18:50 Dose: 60 mg Documented by: CARLEY Vital Signs Vital signs: Vital Signs - 8 hr 10/29/18 18:07 10/29/18 20:31 Temperature 98.0 F Pulse Rate 82 76 Respiratory Rate 15 18 Blood Pressure 122/76 118/71 Pulse Oximetry 98 98 <Anabella Marie DO - Last Filed: 10/29/18 22:09> Orders Ordered: Discontinued Medications Hydrocodone Bitart/Acetaminophen ([place] 5/325) 1 tab PO NOW ONE Stop: 10/29/18 19:42 Last Admin: 10/29/18 19:54 Dose: 1 tab Documented by: RENETTA Cyclobenzaprine HCl (Flexeril) 10 mg PO NOW ONE Stop: 10/29/18 18:47 Last Admin: 10/29/18 18:50 Dose: 10 mg Documented by: CARLEY Ketorolac Tromethamine (Toradol) 60 mg IM NOW ONE Stop: 10/29/18 18:39 Last Admin: 10/29/18 18:51 Dose: 60 mg Documented by: CARLEY Lidocaine (Lidoderm) 1 each TOP NOW ONE Stop: 10/29/18 18:39 Last Admin: 10/29/18 18:51 Dose: 1 each Documented by: CARLEY Prednisone (Deltasone) 60 mg PO NOW ONE Stop: 10/29/18 18:39 Last Admin: 10/29/18 18:50 Dose: 60 mg Documented by: CARLEY Vital Signs Vital signs: Vital Signs - 8 hr 10/29/18 18:07 10/29/18 20:31 Temperature 98.0 F Pulse Rate 82 76 Respiratory Rate 15 18 Blood Pressure 122/76 118/71 Pulse Oximetry 98 98 MDM - Back Pain/Injury <GISELL Galvez-PAM - Last Filed: 10/29/18 20:16> MDM Narrative Medical decision making narrative: The patient is a 58-year-old male who presents with a chief complaint of back pain is requesting a steroid injection in the emergency department. I discussed that we do not do those here. The patient denies any neurological symptoms and denies any incontinence of bowel, incontinence of bladder saddle anesthesia. I discussed at length coming back to the emergency department if these occurred. The patient declines any x-rays in the emergency department. We did not elect to try Flexeril, even though he states he has a rash to nortriptyline. The patient's pain in the emergency department was treated with a lidocaine patch, Toradol, Flexeril and [place] as well as a prednisone burst. I encouraged her to follow up with his PCP as well as orthopedist as soon as possible. We discussed at length return precautions as well as follow-up care. Patient has no questions or concerns upon discharge. Discharge Plan Departure Patient Disposition: Home Clinical Impression: Chronic low back pain Qualifiers: Back pain laterality: bilateral Sciatica presence: with sciatica Sciatica laterality: bilateral sciatica Qualified Code(s): M54.42 - Lumbago with sciatica, left side Discharge Date/Time: 10/29/18 20:32 Instructions: DI for Low Back Pain, DI for Back Pain With Sciatica, DI for Back Spasm Activity Restrictions/Additional Instructions: Please follow up with primary care provider as well as your orthopedist. Please come back to the emergency department for any acute concerns such as incontinence of bowel, incontinence of bladder, numbness in your groin. Do not combine the ketorolac with any other NSAIDs such as Aleve or ibuprofen Be aware the [place] can be constipating or sedating. Do not take the cyclobenzaprine the same time as you take your methocarbamol. Remember that cyclobenzaprine can have a similar reaction as nortriptyline, which she state you have a rash to. You have elected to try it any way. Please monitor for a rash. Prescriptions: New hydrocodone-acetaminophen 5-325 mg tablet 1 tab PO Q4-6H PRN (Reason: pain) Qty: 5 RF: 0 cyclobenzaprine 10 mg tablet 10 mg PO TID PRN (Reason: muscle spasm) Qty: 20 RF: 0 ketorolac 10 mg tablet 10 mg PO QID PRN (Reason: pain) Qty: 20 RF: 0 prednisone 50 mg tablet 50 mg PO DAILY Qty: 5 RF: 0 No Action pantoprazole [Protonix] 40 mg tablet,delayed release (DR/EC) 40 mg PO DAILY RF: 0 sucralfate 100 mg/mL suspension 10 ml PO QID Qty: 420 RF: 0 lidocaine 5 % ointment 1 applictn TOP TID-QID PRN (Reason: pain) Qty: 30 RF: 2 magnesium amino acid chelate 100 mg Tablet Qty: 0 RF: 0 trazodone 100 mg tablet 100 mg PO DAILY Qty: 30 RF: 0 oxycodone 5 mg capsule 5 mg PO Q6H PRN (Reason: pain) Qty: 15 RF: 0 sumatriptan succinate 50 mg tablet 50 mg PO Q2H PRN (Reason: migraine headache) Qty: 30 RF: 10 ranitidine HCl [Acid Control (ranitidine)] 150 mg tablet 150 mg PO DAILY RF: 0 duloxetine 30 mg capsule,delayed release(DR/EC) 30 mg PO DAILY Qty: 60 RF: 2 Referrals: Jermaine Liu MD [Primary Care Provider] -
[2018-10-29 20:31] VITALS: BP 118/71; PULSE 76; RESP 18; O2SAT 98
== END 2018-10-29 20:32 | disposition home or self-care (01) ==
PROVIDERS: Emergency Provider Nurse Practitioner Family; Family Provider Family Medicine; PCP Family Medicine
DX: M54.42 Lumbago with sciatica, left side (principal)
CPT/HCPCS: 96372; 99283; J1885

== ENCOUNTER 2018-11-16 22:08 | Emergency (ER) | payer OTHER, MEDICAID, SELFPAY ==
[2018-11-16 22:15] VITALS: BP 144/95; PULSE 69; RESP 16; TEMP 36.7; O2SAT 97; BMI 21.7
--- NOTE | 2018-11-16 22:20 | ED_ITS ---
HPI - Headache General Chief Complaint: Headache Stated Complaint: MIGRAINE Time Seen by Provider: 11/16/18 22:15 Source: patient Mode of arrival: Ambulatory Limitations: no limitations History of Present Illness HPI Narrative: 58-year-old male with a history of migraines return to the emergency department today with what he states is 1 of his typical migraines. States that it started earlier this afternoon. Took 2 doses of his sumatriptan at home without any improvement. He states this feels like 1 of his prior migraines. No fevers. Comes in stating that he would like the ?cocktail ?that he was see the last time he was here because that improved his headache tremendously. Related Data Home Medications Medication Instructions Recorded Confirmed magnesium amino acid chelate #0 02/13/17 05/16/18 ranitidine HCl 150 mg tablet 150 mg PO DAILY 08/19/17 05/16/18 pantoprazole 40 mg tablet,delayed 40 mg PO DAILY 05/16/18 05/16/18 release Previous Rx's Medication Instructions Recorded oxycodone 5 mg capsule 5 mg PO Q6H PRN #15 cap 01/07/18 sumatriptan succinate 50 mg tablet 50 mg PO Q2H PRN #30 tab 03/20/18 sucralfate 100 mg/mL oral 10 ml PO QID #420 ml 05/16/18 suspension duloxetine 30 mg capsule,delayed 30 mg PO DAILY #60 cap 05/25/18 release trazodone 100 mg tablet 100 mg PO DAILY #30 tab 06/29/18 lidocaine 5 % topical ointment 1 applictn TOP TID-QID PRN #30 gram 08/11/18 cyclobenzaprine 10 mg PO TID PRN #20 tab 10/29/18 hydrocodone-acetaminophen 1 tab PO Q4-6H PRN #5 tab 10/29/18 ketorolac 10 mg PO QID PRN #20 tab 10/29/18 prednisone 50 mg PO DAILY #5 tab 10/29/18 Allergies Allergy/AdvReac Type Severity Reaction Status Date / Time nortriptyline [NORTRIPTYLINE] Allergy Unknown Verified 10/29/18 18:07 tramadol AdvReac Mild rash Verified 10/29/18 18:07 Review of Systems Constitutional Constitutional: Denies fever(s) and Reports headache(s) Eyes Eyes: Reports photophobia ENT Ears, Nose, Mouth, and Throat: Reports headache(s), Denies neck mass and Denies sore throat Cardiovascular Cardiovascular: Denies chest pain and Denies dyspnea Respiratory Respiratory: Denies cough and Denies dyspnea Gastrointestinal Gastrointestinal: Denies abdominal pain, Reports nausea and Denies vomiting Musculoskeletal Musculoskeletal: Denies myalgias and Denies arthralgias Integumentary/Breasts Skin/Breast: Denies lesions and Denies rash Neurologic Neurologic: Denies behavioral changes and Reports headache(s) Psychiatric Psychiatric: Denies behavioral changes Hematologic/Lymphatic Hematologic/Lymphatic: Denies easy bleeding and Denies easy bruising [facility] Medical History Anemia (Resolved 2006) BRBPR (bright red blood per rectum) (Resolved 2006) Chicken pox (Resolved) Degenerative joint disease (DJD) of lumbar spine (Chronic) Hyperlipidemia, mild (Chronic) Ibuprofen adverse reaction (Resolved) Measles (Resolved) Stomach ulcer (Resolved) Social History marital status: pets and animals: Yes education level: college other: walking,boating,gardening Smoking Status: Never smoker alcohol intake: never during the past year weight has: remained stable well-balanced diet: about half the time daily servings fruits/ve-1 caffeine: Yes (rare) eating out: rarely or never Type(s) of exercise: walking Exam Initial Vital Signs Initial Vital Signs: Vital Signs Temperature 98.0 F 11/16/18 22:15 Pulse Rate 69 11/16/18 22:15 Respiratory Rate 16 11/16/18 22:15 Blood Pressure 144/95 H 11/16/18 22:15 Pulse Oximetry 97 11/16/18 22:15 Const General: cooperative, comfortable and well developed Orientation: alert, awake and oriented x3 HENMT Head: normal to inspection and normocephalic Resp Effort & Inspection: normal respiratory effort Cardio Rate: regular rate Skin Lesions: no lesions Rashes: no rashes Neuro General: alert and awake Cognition: normal cognition Speech: speech normal Motor: muscle tone normal throughout Sensory Exam: no sensory deficits noted Extrem General: normal to inspection and capillary refill normal Psych Appearance: grossly normal and well kempt Scores [facility] [place] coma scale eye opening: Spontaneous [place] coma scale verbal response: Orientated Radha coma scale motor response: Obey commands Radha coma scale total score: 15 Course Orders Ordered: Discontinued Medications Diphenhydramine HCl (Benadryl) 25 mg IV NOW ONE Stop: 11/16/18 22:40 Last Admin: 11/16/18 22:48 Dose: 25 mg Documented by: LLOYD Sodium Chloride (Normal Saline 0.9%) 1,000 mls @ 1,000 mls/hr IV BOLUS ONE Stop: 11/16/18 23:38 Last Infusion: 11/16/18 23:50 Dose: 0 mls/hr Documented by: Admin: 11/16/18 22:47 Dose: 1,000 mls/hr Documented by: LLOYD Metoclopramide HCl (Reglan) 10 mg IV NOW ONE Stop: 11/16/18 22:40 Last Admin: 11/16/18 22:48 Dose: 10 mg Documented by: LLOYD Vital Signs Vital signs: Vital Signs - 8 hr 11/16/18 22:15 Temperature 98.0 F Pulse Rate 69 Respiratory Rate 16 Blood Pressure 144/95 H Pulse Oximetry 97 MDM - Headache MDM Narrative Medical decision making narrative: Patient received fluids and Reglan and Benadryl. Patient reports a improvement of his symptoms. That is not completely gone but he does feel well enough to go home. I have low suspicion for TIA or CVA. No trauma. Hold on any radiologic studies for now. Patient was given return precautions and follow-up instructions. He expressed understanding and agreement plan. Discharge Plan Departure Patient Disposition: Home Clinical Impression: Migraine Qualifiers: Migraine type: unspecified Status migrainosus presence: without status migrainosus Intractability: not intractable Qualified Code(s): G43.909 - Migraine, unspecified, not intractable, without status migrainosus Instructions: DI for Migraine Activity Restrictions/Additional Instructions: Continue to take all of your medications as directed. Contact your primary provider for follow-up. Return to the emergency department for any new or worsening symptoms Prescriptions: No Action pantoprazole [Protonix] 40 mg tablet,delayed release (DR/EC) 40 mg PO DAILY RF: 0 sucralfate 100 mg/mL suspension 10 ml PO QID Qty: 420 RF: 0 lidocaine 5 % ointment 1 applictn TOP TID-QID PRN (Reason: pain) Qty: 30 RF: 2 magnesium amino acid chelate 100 mg Tablet Qty: 0 RF: 0 trazodone 100 mg tablet 100 mg PO DAILY Qty: 30 RF: 0 oxycodone 5 mg capsule 5 mg PO Q6H PRN (Reason: pain) Qty: 15 RF: 0 sumatriptan succinate 50 mg tablet 50 mg PO Q2H PRN (Reason: migraine headache) Qty: 30 RF: 10 ranitidine HCl [Acid Control (ranitidine)] 150 mg tablet 150 mg PO DAILY RF: 0 duloxetine 30 mg capsule,delayed release(DR/EC) 30 mg PO DAILY Qty: 60 RF: 2 hydrocodone-acetaminophen 5-325 mg tablet 1 tab PO Q4-6H PRN (Reason: pain) Qty: 5 RF: 0 cyclobenzaprine 10 mg tablet 10 mg PO TID PRN (Reason: muscle spasm) Qty: 20 RF: 0 ketorolac 10 mg tablet 10 mg PO QID PRN (Reason: pain) Qty: 20 RF: 0 prednisone 50 mg tablet 50 mg PO DAILY Qty: 5 RF: 0 Referrals: Jermaine Liu MD [Primary Care Provider] -
[2018-11-16] MEDS: SODIUM CHLORIDE 0.9% 1,000 ML 1000 ML IV (22:47)
[2018-11-16] MEDS: diphenhydrAMINE 50 MG/ML VIAL 25 MG IV (22:48)
[2018-11-16] MEDS: METOCLOPRAMIDE 10 MG/2 ML INJ IV (22:48)
[2018-11-17 00:37] VITALS: BP 113/62; PULSE 61; RESP 14; O2SAT 98
== END 2018-11-17 00:37 | disposition home or self-care (01) ==
PROVIDERS: Emergency Provider Emergency Medicine; Family Provider Family Medicine; PCP Family Medicine
DX: G43.909 Migraine, unspecified, not intractable, without status migrainosus (principal)
CPT/HCPCS: 96361; 96374; 96375; 99283; 99284; J1200; J2765

== ENCOUNTER 2018-11-27 11:32 | Emergency (ER) | payer OTHER, MEDICAID, SELFPAY ==
[2018-11-27 11:49] VITALS: BP 116/72; PULSE 71; RESP 18; TEMP 36.7; O2SAT 98; BMI 21.1
[2018-11-27 13:19] LABS: Add Manual Diff / Slide Review NO; Basophils Absolute Auto 100 /uL (0-100); Basophils Percent Auto 0.7 % (0-2); Eosinophils Absolute Auto 100 /uL (0-450); Hematocrit 42.3 % (41-53); Hemoglobin 14.2 g/dL (13.5-17.5); Lymphocytes Absolute Auto 2100 /uL (1100-4500); Lymphocytes Percent Auto 27.7 % (25-40); Mean Corpuscular HGB Conc 33.6 % (30-36); Mean Corpuscular Volume 92.4 fL (80-100); Monocytes Absolute Auto 500 /uL (0-900); Neutrophils Absolute Auto 4900 /uL (1500-7000); Neutrophils Percent Auto 63.6 % (50-75); Platelet Count 246 X10^3/uL (150-400); Red Blood Cell Count 4.58 X10^6/uL (4.5-5.9); Red Cell Distribution Width 13.5 % (11.6-14.8); White Blood Cell Count 7.7 X10^3/uL (4.5-11.0)
--- NOTE | 2018-11-27 13:40 | ED_ITS ---
HPI - Dizziness General Chief Complaint: Dizziness Stated Complaint: dizzy x 2 days Time Seen by Provider: 11/27/18 13:10 Source: patient Mode of arrival: Ambulatory Limitations: no limitations History of Present Illness HPI Narrative: Patient is a 58-year-old male who presents with lightheadedness. He states he started feeling lightheaded last night like when he stand up too fast however he did has not passed out. He has not been nauseated or vomiting. He denies any chest pain or heart palpitations. He feels like he might be coming down with something but he is not sure what. He has no abdominal pain just does not feel quite right. He has not had any fevers sweats or chills. After sitting in the emergency department now for about 2 hours he overall is feeling much better. He also denies any weakness numbness tingling difficulty speaking or other focal symptoms. MD complaint: lightheadedness Onset (ago): day(s) (1) Related Data Home Medications Medication Instructions Recorded Confirmed magnesium amino acid chelate #0 02/13/17 05/16/18 ranitidine HCl 150 mg tablet 150 mg PO DAILY 08/19/17 05/16/18 pantoprazole 40 mg tablet,delayed 40 mg PO DAILY 05/16/18 05/16/18 release Previous Rx's Medication Instructions Recorded oxycodone 5 mg capsule 5 mg PO Q6H PRN #15 cap 01/07/18 sumatriptan succinate 50 mg tablet 50 mg PO Q2H PRN #30 tab 03/20/18 sucralfate 100 mg/mL oral 10 ml PO QID #420 ml 05/16/18 suspension duloxetine 30 mg capsule,delayed 30 mg PO DAILY #60 cap 05/25/18 release trazodone 100 mg tablet 100 mg PO DAILY #30 tab 06/29/18 lidocaine 5 % topical ointment 1 applictn TOP TID-QID PRN #30 gram 08/11/18 cyclobenzaprine 10 mg PO TID PRN #20 tab 10/29/18 hydrocodone-acetaminophen 1 tab PO Q4-6H PRN #5 tab 10/29/18 ketorolac 10 mg PO QID PRN #20 tab 10/29/18 prednisone 50 mg PO DAILY #5 tab 10/29/18 Allergies Allergy/AdvReac Type Severity Reaction Status Date / Time nortriptyline [NORTRIPTYLINE] Allergy Unknown Verified 11/27/18 11:49 tramadol AdvReac Mild rash Verified 11/27/18 11:49 Review of Systems Review of Systems ROS Unobtainable: All systems reviewed & are unremarkable except as noted in HPI and below Constitutional Constitutional: Denies chills, Denies fever(s), Denies lethargy and Denies weakness Eyes Eyes: Denies change in vision, Denies eye discharge, Denies irritation and D enies loss of vision Cardiovascular Cardiovascular: Denies chest pain, Denies irregular heart rhythm, Reports lightheadedness, Denies palpitations, Denies dyspnea, Denies dyspnea on exertion and Denies orthopnea Respiratory Respiratory: Denies cough, Denies dyspnea, Denies dyspnea on exertion and Denies wheezing Gastrointestinal Gastrointestinal: Denies abdominal pain, Denies change in bowel habits, Denies diarrhea, Denies nausea and Denies vomiting Musculoskeletal Musculoskeletal: Denies back pain, Denies muscle weakness, Denies numbness and Denies tingling Integumentary/Breasts Skin/Breast: Denies pruritus, Denies erythema, Denies rash and Denies wounds Neurologic Neurologic: Denies loss of vision, Denies numbness, Denies tingling and Denies weakness Endocrine Endocrine: Denies palpitations Allergic/Immunologic Allergic/Immunologic: Denies wheezing Patient History Medical History Anemia (Resolved 2006) BRBPR (bright red blood per rectum) (Resolved 2006) Chicken pox (Resolved) Degenerative joint disease (DJD) of lumbar spine (Chronic) Hyperlipidemia, mild (Chronic) Ibuprofen adverse reaction (Resolved) Measles (Resolved) Stomach ulcer (Resolved) Surgical History Anesthesia (Resolved) History of colonoscopy (Resolved 2006) History of colonoscopy (Resolved 2016) History of repair of left rotator cuff (Resolved 2001) Status post left foot surgery (Resolved 1987) Family History Father Age: 88 Prostate cancer Aging Pacemaker Grandfather Heart disease Heart attack Smoker Grandmother Mental health problem Alzheimer's disease Grandfather No problems noted. Grandmother No problems noted. Mother Aging IBS (irritable bowel syndrome) Sister Liver disease Social History marital status: pets and animals: Yes education level: college other: walking,boating,gardening Smoking Status: Never smoker alcohol intake: never during the past year weight has: remained stable well-balanced diet: about half the time daily servings fruits/ve-1 caffeine: Yes (rare) eating out: rarely or never Type(s) of exercise: walking Family History Father Age: 88 Prostate cancer Aging Pacemaker Grandfather Heart disease Heart attack Smoker Grandmother Mental health problem Alzheimer's disease Grandfather No problems noted. Grandmother No problems noted. Mother Aging IBS (irritable bowel syndrome) Sister Liver disease Social History marital status: pets and animals: Yes education level: college other: walking,boating,gardening Smoking Status: Never smoker alcohol intake: never during the past year weight has: remained stable well-balanced diet: about half the time daily servings fruits/ve-1 caffeine: Yes (rare) eating out: rarely or never Type(s) of exercise: walking alcohol intake frequency: 0-2 drinks per day Substance Use Type: does not use Exam Initial Vital Signs Initial Vital Signs: Vital Signs Temperature 98.0 F 11/27/18 11:49 Pulse Rate 71 11/27/18 11:49 Respiratory Rate 18 11/27/18 11:49 Blood Pressure 116/72 11/27/18 11:49 Pulse Oximetry 98 11/27/18 11:49 GENERAL: Well-appearing, well-nourished and in no acute distress. HEENT: Head atraumatic,EOMI, pupils reactive, face symmetric CARDIOVASCULAR: Regular rate and rhythm without murmurs, rubs or gallops. RESPIRATORY: Breath sounds equal bilaterally, no wheezes rales or rhonchi. ABDOMEN: Soft, nontender. Normoactive bowel sounds all 4 quadrants. No guarding or rebound. EXTREMITIES: Normal range of motion, no clubbing or edema. Neurovascularly intact NEUROLOGICAL: Alert and oriented x4.Normal gait and speech. Cranial nerves II through XII grossly intact. Awning Hanger Supervisor strength equal bilaterally good push and pull able left leg off the gurney equally sensation intact SKIN: Warm, dry, no laceration, no petechiae, no rashes or lesions. Course Orders Ordered: ED Orders 11/27/18 11:54 EKG-12 Lead Stat 11/27/18 13:10 Basic Metabolic Panel Stat Complete Blood Count AUTO DIFF Stat Troponin I Stat Vital Signs Vital signs: Vital Signs - 8 hr 11/27/18 11:49 11/27/18 13:56 Temperature 98.0 F Pulse Rate 71 65 Respiratory Rate 18 Blood Pressure 116/72 Blood Pressure [Right Arm] 118/75 Pulse Oximetry 98 98 MDM - Dizziness Lab Data Attestation: I reviewed the patient's lab results. Result diagrams: 11/27/18 13:10 11/27/18 13:10 Labs: Lab Results 11/27/18 11/27/18 Range/Units 13:10 13:10 WBC 7.7 (4.5-11.0) X10^3/uL RBC 4.58 (4.5-5.9) X10^6/uL Hgb 14.2 (13.5-17.5) g/dL Hct 42.3 (41-53) % MCV 92.4 (80-100) fL MCH 31.0 (26-34) PG MCHC 33.6 (30-36) % RDW 13.5 (11.6-14.8) % Plt Count 246 (150-400) X10^3/uL Neut % (Auto) 63.6 (50-75) % Lymph % (Auto) 27.7 (25-40) % Larue % (Auto) 7.0 (3-14) % Eos % (Auto) 1.0 L (2-4) % Baso % (Auto) 0.7 (0-2) % Neut # (Auto) 4900 (8693-9152) /uL Lymph # (Auto) 2100 (1167-7928) /uL Larue # (Auto) 500 (0-900) /uL Eos # (Auto) 100 (0-450) /uL Baso # (Auto) 100 (0-100) /uL Sodium 138 (137-145) mmol/L Potassium 4.3 (3.4-5.1) mmol/L Chloride 104 (98-107) mmol/L Carbon Dioxide 25 (22-32) mmol/L BUN 19 (9-20) mg/dL Creatinine 0.90 (0.66-1.25) mg/dL Estimated GFR > 60.0 (>60) mL/min BUN/Creatinine Ratio 21.1 (6-22) Glucose 93 (70-100) mg/dL Calcium 9.0 (8.4-10.2) mg/dL Troponin I < 0.012 (0.01-0.034) ng/mL ECG Data Attestation: I personally reviewed and interpreted this ECG as follows: Prior ECG tracings: available for review Interpretation: Normal sinus rhythm rate 73 p.r. interval 156 QRS [address]ations no ST depressions similar previous EKG MDM Narrative Medical decision making narrative: Patient overall has very vague symptoms no focal deficits. No sign of infection at this time. Recommend supportive care and follow up as needed Discharge Plan Departure Patient Disposition: Home Clinical Impression: Near syncope Discharge Date/Time: 11/27/18 14:13 Instructions: Fainting Activity Restrictions/Additional Instructions: *You have been diagnosed with near syncope *What to do: At this time blood work overall is reassuring. He may be coming down with infection of some sort. At this time recommend resting and hydration. *Continue to take medications as directed *Follow up with your primary care provider in 2-3 days *Return to ER if you should have passing out, chest pain, shortness of breath, weakness numbness tingling difficulty speaking or any new, worsening or concerning symptoms Prescriptions: No Action pantoprazole [Protonix] 40 mg tablet,delayed release (DR/EC) 40 mg PO DAILY RF: 0 sucralfate 100 mg/mL suspension 10 ml PO QID Qty: 420 RF: 0 lidocaine 5 % ointment 1 applictn TOP TID-QID PRN (Reason: pain) Qty: 30 RF: 2 magnesium amino acid chelate 100 mg Tablet Qty: 0 RF: 0 trazodone 100 mg tablet 100 mg PO DAILY Qty: 30 RF: 0 oxycodone 5 mg capsule 5 mg PO Q6H PRN (Reason: pain) Qty: 15 RF: 0 sumatriptan succinate 50 mg tablet 50 mg PO Q2H PRN (Reason: migraine headache) Qty: 30 RF: 10 ranitidine HCl [Acid Control (ranitidine)] 150 mg tablet 150 mg PO DAILY RF: 0 duloxetine 30 mg capsule,delayed release(DR/EC) 30 mg PO DAILY Qty: 60 RF: 2 hydrocodone-acetaminophen 5-325 mg tablet 1 tab PO Q4-6H PRN (Reason: pain) Qty: 5 RF: 0 cyclobenzaprine 10 mg tablet 10 mg PO TID PRN (Reason: muscle spasm) Qty: 20 RF: 0 ketorolac 10 mg tablet 10 mg PO QID PRN (Reason: pain) Qty: 20 RF: 0 prednisone 50 mg tablet 50 mg PO DAILY Qty: 5 RF: 0 Referrals: Jermaine Liu MD [Primary Care Provider] -
[2018-11-27 13:43] LABS: BUN Creatinine Ratio 21.1 (6-22); Blood Urea Nitrogen 19 mg/dL (9-20); Carbon Dioxide 25 mmol/L (22-32); Chloride 104 mmol/L (98-107); Estimated Glomerular Filt Rate > 60.0 mL/min (>60); Glucose 93 mg/dL (70-100); HEMOLYSIS 27 (0-50); Potassium 4.3 mmol/L (3.4-5.1); Sodium 138 mmol/L (137-145)
[2018-11-27 13:55] LABS: Troponin I < 0.012 ng/mL (0.01-0.034)
[2018-11-27 13:56] VITALS: BP 118/75; PULSE 65; O2SAT 98
--- NOTE | 2018-11-27 14:00 | PC.NURSE ---
pt states feeling tired
== END 2018-11-27 14:13 | disposition home or self-care (01) ==
PROVIDERS: Emergency Provider Emergency Medicine; Family Provider Family Medicine; PCP Family Medicine
DX: R55 Syncope and collapse (principal)
CPT/HCPCS: 36415; 80048; 84484; 85025; 93005; 99282; 99284

== ENCOUNTER 2018-11-30 13:00 | Outpatient (RCR) | payer OTHER, MEDICAID, SELFPAY ==
--- NOTE | 2018-11-10 09:45 | PT.OIE ---
Current Diagnoses Intervertebral disc disorders with radiculopathy, lumbar region (11/10/18) Strain of muscle, fascia and tendon of lower back, subsequent encounter (11/10/18) Past Medical History (Last Reviewed 10/29/18 @ 20:05 by GISELL Galvez-) Anemia (Resolved 2006) BRBPR (bright red blood per rectum) (Resolved 2006) Chicken pox (Resolved) Degenerative joint disease (DJD) of lumbar spine (Chronic) Hyperlipidemia, mild (Chronic) Ibuprofen adverse reaction (Resolved) Measles (Resolved) Stomach ulcer (Resolved) Past Surgical History (Last Reviewed 10/29/18 @ 20:05 by GISELL Galvez-PAM) Anesthesia (Resolved) History of colonoscopy (Resolved 2006) History of colonoscopy (Resolved 2016) History of repair of left rotator cuff (Resolved 2001) Status post left foot surgery (Resolved 1987) Visit Care Team Role Provider Type Jermaine Liu MD Family Provider Non-Staff Primary Care Provider Specialty: Family Practice Address: [address] [place] [address], [address], [place], [address] Email: Carlitos Del Castillo MD Attending Provider Physician Specialty: Orthopedic Surgery Address: [address] [place] [address], [id number] Email: [email or web address] Physical Therapy Initial Evaluation PT-OP-A Visit Information Start: 11/10/18 09:53 Freq: Status: Active Protocol: Document 11/10/18 09:45 [facility] (Rec: 11/12/18 09:08 [facility] [id number]) Out-Patient Physical Therapy Visit Information Visit Information Visit Type Initial Evaluation Visit Note 58 year old male with multi level degenerative disc and facet disease Mild multi level canal stenoses, multilevel foraminal stenoses worse at L5-S1 on the right where there ismild flattening deformity of the L5 nerve root within the nerural foramen. Visit Start Time 09:45 Visit Stop Time 10:30 Total Visit Minutes 45 Visit Number 1 Evaluation Information Evaluation Date 11/10/18 PT-OP-B Current Condition Start: 11/10/18 09:53 Freq: Status: Active Protocol: Document 11/10/18 09:45 [facility] (Rec: 11/12/18 09:08 [facility] [id number]) Current Condition History of Current Condition Onset Date 2011 Current Complaints c/o constant back pain and intermittent pain referred down B LE, rates pain History of Current Condition 56 year old male seen in PT previously who would like a steroid injection but needs to complete another round of PT first as he has changed insurance. He describes he has had back pain since 2002 but in 2011 is when he sustained a L5 disc injury. He has had steriod injections but still feeling pain. Would like an additional steroid injection. Current MRI shos multilevel degenerative disc disease and facet disease, mulilevel canal stenoses, multilevel foraminal stenosis worse at L5-S1 on the right. Pt reports he did not like PT last round as he felt he got pushed too hard and pain increased. He wants to proceed slowly with this round of PT Treatment Goals Patient/Caregiver Goals The patient would like a additional steroid injection, his goals are pain releif Prior Functional Status Baseline Function- ADL's Independent Baseline Function- Mobility Independent Baseline Function- Other The pain is severe and limits walking short distances and sitting for more than 10 minutes, limits sleeping and restricts travel Current Functional Impairments (Reported) Functional Limitations- ADL's The pain is severe and limits walking short distances and sitting for more than 10 minutes, limits sleeping and restricts rn traveling-OP-C Subjective Start: 11/10/18 09:53 Freq: Status: Active Protocol: Document 11/10/18 09:45 [facility] (Rec: 11/12/18 09:23 [facility] [id number]) Patient Questionnaires Oswestry Low Back Index Oswestry Impairment 40 to 59% Impaired (Score 40- 59) OP-PT Pain Assessment Pain Assessment Grid Paper Pain Assessment Grid Completed Yes Location radicular pain down B LE Pain Location Details radicular LE pain Intensity 8 Scale Used Numeric (1 - 10) Description Radiating,Stabbing Frequency Intermittent bilateral low back Intensity 8 Scale Used Numeric (1 - 10) Description Spasm Frequency Constant Pain Duration constant Pain Aggravating Factors Exercise,Standing,Sitting, Walking PT-OP-F Manual Assessment Start: 11/11/18 10:30 Freq: Status: Active Protocol: Document 11/10/18 09:45 [facility] (Rec: 11/12/18 09:23 [facility] [email or web address]) Manual Assessments Soft Tissue Assessment Soft Tissue Mobility Assessment lumbar paraspinals in a guarded state at rest Right quadricep is tight and guarded, tightness and decreased flexibility of iliopsoas, piriforms, and ITB bilaterally PT-OP-J Posture/Palpation/Skin Start: 11/11/18 10:30 Freq: Status: Active Protocol: Document 11/10/18 09:45 [facility] (Rec: 11/12/18 09:23 [facility] [email or web address]) Posture Evaluation Comments Posture Comments pt stands in a very guarded posture and is shifted to the left in standing PT-OP-K Range of Motion Start: 11/11/18 10:30 Freq: Status: Active Protocol: Document 11/10/18 09:45 [facility] (Rec: 11/12/18 09:23 [facility] [email or web address]) Lumbar Spine Range of Motion Lumbar Spine Active Testing Position Standing Flexion 20 Extension 0 Rotation Left 35 Rotation Right 30 Lateral Flexion Left 10 Lateral Flexion Right 10 ROM Limitations Soft Tissue Tightness Comments Pt is very guarded in standing and did not want to push his back today with ROM testing Hip Goniometric Range of Motion Hip Right Flexion w/Knee Flexed 100 Straight Leg Raise 70 Extension 5 External Rotation 30 Left Flexion w/Knee Flexed 100 Straight Leg Raise 70 Extension 5 External Rotation 35 PT-OP-M Strength Start: 11/11/18 10:30 Freq: Status: Active Protocol: Document 11/10/18 09:45 [facility] (Rec: 11/12/18 09:23 [facility] [email or web address]) Hip Strength Hip Manual Muscle Testing Left Flexion (L2) 4 Good Extension (S1) 4 Good Abduction 4 Good Right Flexion (L2) 4 Good Extension (S1) 4 Good Abduction 4- Good- PT-OP-T Assessment and Plan Start: 11/11/18 10:30 Freq: Status: Active Protocol: Document 11/10/18 09:45 [facility] (Rec: 11/12/18 09:23 [facility] [id number]) Physical Therapy Assessment Rehab Potential Rehabilitation Potential Fair Evaluation Complexity Number of Personal Factors/Comorbidities 0 Number of Body Systems Impaired 1-2 Clinical Presentation at Evaluation Stable Impairments Impairments Activity Tolerance,Functional Activities,Functional Mobility ,Pain,Posture,ROM,Soft Tissue Mobility,Strength Goals Four Impairment Loss of lumbar spine ROM especially lumbar flexion Catalyst Operator Goal (LTG) Johnnie is educated in a flexibility program for the lumbar spine and demonstrates improved Lumbar spine ROM into flexion by 20 degrees Three Impairment Low back pain rated 8-10/10 Catalyst Operator Goal (LTG) Johnnie is able to tolerate a stretching program for the lumbar spine and hip muscles and reports a reduction in Low back pain by 2-3 points LTG Duration 8 weeks Two Impairment Tight bilateral HIP flexors, ER Rotators, IT band, Quads Senior Care Goal (LTG) Patient will exhibit full excursion to bilateral hip rotators, flexors, IT band and quads to improve lumbar alignment. One Impairment Increased Lumbar lordosis Senior Care Goal (LTG) Patient roger exhibit neutral lumbar curve in all dynamic mobility to decrease lumbar strain. Assessment Summary Assessment Johnnie presents to physical therapy today with ongoing c/o constant LBP and intermittent radicular symptoms. He does not have any positive dural tests today and has some weakness in his hips most likely due to pain with MMT. He stands in a very guarded position shifted to the left. His paraspinals are very guarded at rest. Lumbar spine ROM is very painful and limited. He is very hesitant to begin PT as he has done PT in the past and feels he was pushed to hard. We talked about the importance of a stretching program for his back and he feels comfortable going slow with this. He feels he needs a steroid injection but is willing to go through another course of PT prior to this. Physical Therapy Plan Frequency and Duration Frequency of Treatment 2x/Week Duration of Treatment 8 Plan of Care Start Date 11/10/18 Plan of Care End Date 01/05/19 Therapeutic Interventions Therapeutic Interventions Home Exercise Program,Manual Therapy,Neuromuscular Re- education,Patient/Caregiver Education,Self-Care/Home Management,Soft Tissue Mobilization,Therapeutic Exercises Modalities Cold Pack/Ice Massage,Electric Stimulation Next Visit Focus/Plan Next Note Type Treatment Note Next Visit Plan Begin warm up on the biodex and initiate a gentle stretching program for the lumbar spine. Pt does like Ice and IFC at the end of treatment
--- NOTE | 2018-11-12 14:45 | PT.OTN ---
Current Diagnoses Intervertebral disc disorders with radiculopathy, lumbar region (11/12/18) Strain of muscle, fascia and tendon of lower back, subsequent encounter (11/12/18) Physical Therapy Treatment Note PT-OP-A Visit Information Start: 11/10/18 09:53 Freq: Status: Active Protocol: Document 11/12/18 13:45 MB (Rec: 11/12/18 14:45 MB [id number]) Out-Patient Physical Therapy Visit Information Visit Information Visit Type Treatment Note Visit Note Pt agreeable to manual work this date. Con't per assessment comments Visit Start Time 13:45 Visit Stop Time 14:30 Total Visit Minutes 2 PT-OP-B Current Condition Start: 11/10/18 09:53 Freq: Status: Active Protocol: Document 11/10/18 09:45 [facility] (Rec: 11/12/18 09:08 [facility] [email or web address]) Current Condition History of Current Condition Onset Date 2011 Current Complaints c/o constant back pain and intermittent pain referred down B LE, rates pain History of Current Condition 56 year old male seen in PT previously who would like a steroid injection but needs to complete another round of PT first as he has changed insurance. He describes he has had back pain since 2002 but in 2011 is when he sustained a L5 disc injury. He has had steriod injections but still feeling pain. Would like an additional steroid injection. Current MRI shos multilevel degenerative disc disease and facet disease, mulilevel canal stenoses, multilevel foraminal stenosis worse at L5-S1 on the right. Pt reports he did not like PT last round as he felt he got pushed too hard and pain increased. 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 He states that it is an insurance thing and he thinks he needs a MRI. He might have been pushed too far in previous PT durations with exercises. He thought that stretching last treatment was helpful. Patient Reported Progress Same PT-OP-F Manual Assessment Start: 11/11/18 10:30 Freq: Status: Active Protocol: Document 11/10/18 09:45 [facility] (Rec: 11/12/18 09:23 [facility] [email or web address]) Manual Assessments Soft Tissue Assessment Soft Tissue Mobility Assessment lumbar paraspinals in a guarded state at rest Right quadricep is tight and guarded, tightness and decreased flexibility of iliopsoas, piriforms, and ITB bilaterally PT-OP-J Posture/Palpation/Skin Start: 11/11/18 10:30 Freq: Status: Active Protocol: Document 11/10/18 09:45 [facility] (Rec: 11/12/18 09:23 [facility] [email or web address]) Posture Evaluation Comments Posture Comments pt stands in a very guarded posture and is shifted to the left in standing PT-OP-K Range of Motion Start: 11/11/18 10:30 Freq: Status: Active Protocol: Document 11/10/18 09:45 [facility] (Rec: 11/12/18 09:23 [facility] [email or web address]) Lumbar Spine Range of Motion Lumbar Spine Active Testing Position Standing Flexion 20 Extension 0 Rotation Left 35 Rotation Right 30 Lateral Flexion Left 10 Lateral Flexion Right 10 ROM Limitations Soft Tissue Tightness Comments Pt is very guarded in standing and did not want to push his back today with ROM testing Hip Goniometric Range of Motion Hip Right Flexion w/Knee Flexed 100 Straight Leg Raise 70 Extension 5 External Rotation 30 Left Flexion w/Knee Flexed 100 Straight Leg Raise 70 Extension 5 External Rotation 35 PT-OP-M Strength Start: 11/11/18 10:30 Freq: Status: Active Protocol: Document 11/10/18 09:45 [facility] (Rec: 11/12/18 09:23 [facility] [email or web address]) Hip Strength Hip Manual Muscle Testing Left Flexion (L2) 4 Good Extension (S1) 4 Good Abduction 4 Good Right Flexion (L2) 4 Good Extension (S1) 4 Good Abduction 4- Good- PT-OP-Q Treatments Start: 11/11/18 10:30 Freq: Status: Active Protocol: Document 11/12/18 13:45 MB (Rec: 11/12/18 14:45 MB [id number]) Manual Therapy Treatment Other Other Manual Treatments Pt hook lying with wedge under knees: STM B iliopsoas and rectus femoris. Pt agrees to Counterstrain to assess and treat fascial and lymphatic mobility: treated stacks thoracic lymphatic venous spinal veins, extension bias and right ALL lumbar. Improved passive SLR after treatment. PT-OP-R Modalities Start: 11/11/18 10:30 Freq: Status: Active Protocol: Document 11/10/18 09:45 [facility] (Rec: 11/12/18 09:29 [facility] [email or web address]) Electric Stimulation Electric Stimulation Interferential Current (IFC) Body Location low back Duration (Minutes) 15 Contraction Type Normal Patient Position Hooklying Combined With Heat/Cold Cold Pack PT-OP-T Assessment and Plan Start: 11/11/18 10:30 Freq: Status: Active Protocol: Document 11/12/18 13:45 MB (Rec: 11/12/18 14:45 MB [id number]) Physical Therapy Assessment Assessment Summary Assessment Pt agreeable to Counterstrain this date to address fascial restrictios. His right passive SLR improves range after treatment. Con't to monitor response. Re-ed pt to increase non-caffeinated fluid intake and to move his feet rather than bending and twisting. He is agreeable to work on these. Physical Therapy Plan Frequency and Duration Frequency of Treatment 2x/Week Duration of Treatment 8 Plan of Care Start Date 11/10/18 Plan of Care End Date 01/05/19 Next Visit Focus/Plan Next Note Type Treatment Note Next Visit Plan Monitor response to Counterstrain and con't as appropriate. Consider pelvic realignment exercises and prone positioning.
--- NOTE | 2018-11-16 11:48 | PT.OTN ---
Current Diagnoses Intervertebral disc disorders with radiculopathy, lumbar region (11/12/18) Strain of muscle, fascia and tendon of lower back, subsequent encounter (11/12/18) Physical Therapy Treatment Note PT-OP-A Visit Information Start: 11/10/18 09:53 Freq: Status: Active Protocol: Document 11/12/18 13:45 MB (Rec: 11/12/18 14:45 MB [id number]) Out-Patient Physical Therapy Visit Information Visit Information Visit Type Treatment Note Visit Note Pt agreeable to manual work this date. Con't per assessment comments Visit Start Time 13:45 Visit Stop Time 14:30 Total Visit Minutes 2 PT-OP-B Current Condition Start: 11/10/18 09:53 Freq: Status: Active Protocol: Document 11/10/18 09:45 [facility] (Rec: 11/12/18 09:08 [facility] [email or web address]) Current Condition History of Current Condition Onset Date 2011 Current Complaints c/o constant back pain and intermittent pain referred down B LE, rates pain History of Current Condition 56 year old male seen in PT previously who would like a steroid injection but needs to complete another round of PT first as he has changed insurance. He describes he has had back pain since 2002 but in 2011 is when he sustained a L5 disc injury. He has had steriod injections but still feeling pain. Would like an additional steroid injection. Current MRI shos multilevel degenerative disc disease and facet disease, mulilevel canal stenoses, multilevel foraminal stenosis worse at L5-S1 on the right. Pt reports he did not like PT last round as he felt he got pushed too hard and pain increased. He wants to proceed slowly with this round of PT Treatment Goals Patient/Caregiver Goals The patient would like a additional steroid injection, his goals are pain releif Prior Functional Status Baseline Function- ADL's Independent Baseline Function- Mobility Independent Baseline Function- Other The pain is severe and limits walking short distances and sitting for more than 10 minutes, limits sleeping and restricts travel Current Functional Impairments (Reported) Functional Limitations- ADL's The pain is severe and limits walking short distances and sitting for more than 10 minutes, limits sleeping and 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 He states that it is an insurance thing and he thinks he needs a MRI. He might have been pushed too far in previous PT durations with exercises. He thought that stretching last treatment was helpful. Patient Reported Progress Same PT-OP-F Manual Assessment Start: 11/11/18 10:30 Freq: Status: Active Protocol: Document 11/10/18 09:45 [facility] (Rec: 11/12/18 09:23 [facility] [email or web address]) Manual Assessments Soft Tissue Assessment Soft Tissue Mobility Assessment lumbar paraspinals in a guarded state at rest Right quadricep is tight and guarded, tightness and decreased flexibility of iliopsoas, piriforms, and ITB bilaterally PT-OP-J Posture/Palpation/Skin Start: 11/11/18 10:30 Freq: Status: Active Protocol: Document 11/10/18 09:45 [facility] (Rec: 11/12/18 09:23 [facility] [email or web address]) Posture Evaluation Comments Posture Comments pt stands in a very guarded posture and is shifted to the left in standing PT-OP-K Range of Motion Start: 11/11/18 10:30 Freq: Status: Active Protocol: Document 11/10/18 09:45 [facility] (Rec: 11/12/18 09:23 [facility] [email or web address]) Lumbar Spine Range of Motion Lumbar Spine Active Testing Position Standing Flexion 20 Extension 0 Rotation Left 35 Rotation Right 30 Lateral Flexion Left 10 Lateral Flexion Right 10 ROM Limitations Soft Tissue Tightness Comments Pt is very guarded in standing and did not want to push his back today with ROM testing Hip Goniometric Range of Motion Hip Right Flexion w/Knee Flexed 100 Straight Leg Raise 70 Extension 5 External Rotation 30 Left Flexion w/Knee Flexed 100 Straight Leg Raise 70 Extension 5 External Rotation 35 PT-OP-M Strength Start: 11/11/18 10:30 Freq: Status: Active Protocol: Document 11/10/18 09:45 [facility] (Rec: 11/12/18 09:23 [facility] [email or web address]) Hip Strength Hip Manual Muscle Testing Left Flexion (L2) 4 Good Extension (S1) 4 Good Abduction 4 Good Right Flexion (L2) 4 Good Extension (S1) 4 Good Abduction 4- Good- PT-OP-Q Treatments Start: 11/11/18 10:30 Freq: Status: Active Protocol: Document 11/12/18 13:45 MB (Rec: 11/12/18 14:45 MB [id number]) Manual Therapy Treatment Other Other Manual Treatments Pt hook lying with wedge under knees: STM B iliopsoas and rectus femoris. Pt agrees to Counterstrain to assess and treat fascial and lymphatic mobility: treated stacks thoracic lymphatic venous spinal veins, extension bias and right ALL lumbar. Improved passive SLR after treatment. PT-OP-R Modalities Start: 11/11/18 10:30 Freq: Status: Active Protocol: Document 11/10/18 09:45 [facility] (Rec: 11/12/18 09:29 [facility] [email or web address]) Electric Stimulation Electric Stimulation Interferential Current (IFC) Body Location low back Duration (Minutes) 15 Contraction Type Normal Patient Position Hooklying Combined With Heat/Cold Cold Pack PT-OP-T Assessment and Plan Start: 11/11/18 10:30 Freq: Status: Active Protocol: Document 11/12/18 13:45 MB (Rec: 11/12/18 14:45 MB [id number]) Physical Therapy Assessment Assessment Summary Assessment Pt agreeable to Counterstrain this date to address fascial restrictios. His right passive SLR improves range after treatment. Con't to monitor response. Re-ed pt to increase non-caffeinated fluid intake and to move his feet rather than bending and twisting. He is agreeable to work on these. Physical Therapy Plan Frequency and Duration Frequency of Treatment 2x/Week Duration of Treatment 8 Plan of Care Start Date 11/10/18 Plan of Care End Date 01/05/19 Next Visit Focus/Plan Next Note Type Treatment Note Next Visit Plan Monitor response to Counterstrain and con't as appropriate. Consider pelvic realignment exercises and prone positioning.
--- NOTE | 2018-11-16 13:15 | PT-OP ANOTE ---
Pt does not show up for appointment at 1300 on 11/16/18. PT calls pt's cell phone and leaves a message, communicating next appointment time and date and asking pt to call if he is not going to be able to make appointment. Will consider d/cing pt if he does not make appointment.
--- NOTE | 2018-11-18 17:51 | PT.OTN ---
Current Diagnoses Intervertebral disc disorders with radiculopathy, lumbar region (11/18/18) Strain of muscle, fascia and tendon of lower back, subsequent encounter (11/18/18) Physical Therapy Treatment Note PT-OP-A Visit Information Start: 11/10/18 09:53 Freq: Status: Active Protocol: Document 11/18/18 16:45 MB (Rec: 11/18/18 17:50 MB [id number]) Out-Patient Physical Therapy Visit Information Visit Information Visit Type Treatment Note Visit Note Pt states that he felt the same after Counterstrain. He likes therapist stretching his legs and e-stim. PT ed pt that these are not skillable in the long-term and so started self-stretching with martial art belt Visit Start Time 16:45 Visit Stop Time 17:45 Total Visit Minutes 60 Visit Number 3 PT-OP-B Current Condition Start: 11/10/18 09:53 Freq: Status: Active Protocol: Document 11/10/18 09:45 [facility] (Rec: 11/12/18 09:08 [facility] [email or web address]) Current Condition History of Current Condition Onset Date 2011 Current Complaints c/o constant back pain and intermittent pain referred down B LE, rates pain History of Current Condition 56 year old male seen in PT previously who would like a steroid injection but needs to complete another round of PT first as he has changed insurance. He describes he has had back pain since 2002 but in 2011 is when he sustained a L5 disc injury. He has had steriod injections but still feeling pain. Would like an additional steroid injection. Current MRI shos multilevel degenerative disc disease and facet disease, mulilevel canal stenoses, multilevel foraminal stenosis worse at L5-S1 on the right. Pt reports he did not like PT last round as he felt he got pushed too hard and pain increased. 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 He states that he had last treatment time wrong and that is why he missed appointment. PT-OP-F Manual Assessment Start: 11/11/18 10:30 Freq: Status: Active Protocol: Document 11/10/18 09:45 [facility] (Rec: 11/12/18 09:23 [facility] [email or web address]) Manual Assessments Soft Tissue Assessment Soft Tissue Mobility Assessment lumbar paraspinals in a guarded state at rest Right quadricep is tight and guarded, tightness and decreased flexibility of iliopsoas, piriforms, and ITB bilaterally PT-OP-J Posture/Palpation/Skin Start: 11/11/18 10:30 Freq: Status: Active Protocol: Document 11/10/18 09:45 [facility] (Rec: 11/12/18 09:23 [facility] [email or web address]) Posture Evaluation Comments Posture Comments pt stands in a very guarded posture and is shifted to the left in standing PT-OP-K Range of Motion Start: 11/11/18 10:30 Freq: Status: Active Protocol: Document 11/10/18 09:45 [facility] (Rec: 11/12/18 09:23 [facility] [email or web address]) Lumbar Spine Range of Motion Lumbar Spine Active Testing Position Standing Flexion 20 Extension 0 Rotation Left 35 Rotation Right 30 Lateral Flexion Left 10 Lateral Flexion Right 10 ROM Limitations Soft Tissue Tightness Comments Pt is very guarded in standing and did not want to push his back today with ROM testing Hip Goniometric Range of Motion Hip Right Flexion w/Knee Flexed 100 Straight Leg Raise 70 Extension 5 External Rotation 30 Left Flexion w/Knee Flexed 100 Straight Leg Raise 70 Extension 5 External Rotation 35 PT-OP-M Strength Start: 11/11/18 10:30 Freq: Status: Active Protocol: Document 11/10/18 09:45 [facility] (Rec: 11/12/18 09:23 [facility] [email or web address]) Hip Strength Hip Manual Muscle Testing Left Flexion (L2) 4 Good Extension (S1) 4 Good Abduction 4 Good Right Flexion (L2) 4 Good Extension (S1) 4 Good Abduction 4- Good- PT-OP-Q Treatments Start: 11/11/18 10:30 Freq: Status: Active Protocol: Document 11/18/18 16:45 MB (Rec: 11/18/18 17:50 MB [id number]) Therapeutic Exercises Supine Exercises Mohsen stretch Supine Exercise Name Increased tension on the right and so left foot on plinth for right stretch Hamstring, calf and AP stretch Supine Exercise Name Hamstring, calf and AP, hip add/abd stretch Comments Use of martial art belt, 2 reps all positions each leg Manual Therapy Treatment Other Other Manual Treatments B passive stretching of hamstrings PT-OP-R Modalities Start: 11/11/18 10:30 Freq: Status: Active Protocol: Document 11/18/18 16:45 MB (Rec: 11/18/18 17:51 MB [id number]) Electric Stimulation Electric Stimulation Interferential Current (IFC) Body Location low back Duration (Minutes) 15 Contraction Type Normal Patient Position Prone Combined With Heat/Cold Cold Pack PT-OP-T Assessment and Plan Start: 11/11/18 10:30 Freq: Status: Active Protocol: Document 11/18/18 16:45 MB (Rec: 11/18/18 17:50 MB [id number]) Physical Therapy Assessment Goals Four Impairment Loss of lumbar spine ROM especially lumbar flexion Alf Goal (LTG) Johnnie is educated in a flexibility program for the lumbar spine and demonstrates improved Lumbar spine ROM into flexion by 20 degrees Three Impairment Low back pain rated 8-10/10 Alf Goal (LTG) Johnnie is able to tolerate a stretching program for the lumbar spine and hip muscles and reports a reduction in Low back pain by 2-3 points LTG Duration 8 weeks Two Impairment Tight bilateral HIP flexors, ER Rotators, IT band, Quads [employer] Teacher Goal (LTG) Patient will exhibit full excursion to bilateral hip rotators, flexors, IT band and quads to improve lumbar alignment. One Impairment Increased Lumbar lordosis Alf Goal (LTG) Patient roger exhibit neutral lumbar curve in all dynamic mobility to decrease lumbar strain. Assessment Summary Assessment Pt did not feel different after Counterstrain and states that he liked therapist stretching him and e-stim. Initiated MWM stretching of hamstrings, calves and quads this date, also hip flexor with glute squeeze in Mohsen position. Monitor response and compliance. Pt con't to state that he is hoping for MRI and possible injection. Physical Therapy Plan Frequency and Duration Frequency of Treatment 2x/Week Duration of Treatment 8 Plan of Care Start Date 11/10/18 Plan of Care End Date 01/05/19 Therapeutic Interventions Therapeutic Interventions Home Exercise Program,Manual Therapy,Neuromuscular Re- education,Patient/Caregiver Education,Self-Care/Home Management,Soft Tissue Mobilization,Therapeutic Exercises Modalities Cold Pack/Ice Massage,Electric Stimulation Next Visit Focus/Plan Next Note Type Treatment Note Next Visit Plan Consider pelvic realignment exercises and prone positioning.
--- NOTE | 2018-11-23 13:47 | PT.OTN ---
Current Diagnoses Intervertebral disc disorders with radiculopathy, lumbar region (11/23/18) Strain of muscle, fascia and tendon of lower back, subsequent encounter (11/23/18) Physical Therapy Treatment Note PT-OP-A Visit Information Start: 11/10/18 09:53 Freq: Status: Active Protocol: Document 11/23/18 13:03 MB (Rec: 11/23/18 13:46 MB [id number]) Out-Patient Physical Therapy Visit Information Visit Information Visit Type Treatment Note Visit Start Time 13:03 Visit Stop Time 13:42 Total Visit Minutes 39 Visit Number 4 PT-OP-B Current Condition Start: 11/10/18 09:53 Freq: Status: Active Protocol: Document 11/10/18 09:45 [facility] (Rec: 11/12/18 09:08 [facility] [email or web address]) Current Condition History of Current Condition Onset Date 2011 Current Complaints c/o constant back pain and intermittent pain referred down B LE, rates pain History of Current Condition 56 year old male seen in PT previously who would like a steroid injection but needs to complete another round of PT first as he has changed insurance. He describes he has had back pain since 2002 but in 2011 is when he sustained a L5 disc injury. He has had steriod injections but still feeling pain. Would like an additional steroid injection. Current MRI shos multilevel degenerative disc disease and facet disease, mulilevel canal stenoses, multilevel foraminal stenosis worse at L5-S1 on the right. Pt reports he did not like PT last round as he felt he got pushed too hard and pain increased. 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 Occ, his back gets better and then his legs feel worse. He is concerned about any further lifting exercises. He is lifting as needed at home. He is using stiff theraband to stretch. Patient Reported Progress Same PT-OP-F Manual Assessment Start: 11/11/18 10:30 Freq: Status: Active Protocol: Document 11/10/18 09:45 [facility] (Rec: 11/12/18 09:23 [facility] [email or web address]) Manual Assessments Soft Tissue Assessment Soft Tissue Mobility Assessment lumbar paraspinals in a guarded state at rest Right quadricep is tight and guarded, tightness and decreased flexibility of iliopsoas, piriforms, and ITB bilaterally PT-OP-J Posture/Palpation/Skin Start: 11/11/18 10:30 Freq: Status: Active Protocol: Document 11/10/18 09:45 [facility] (Rec: 11/12/18 09:23 [facility] [email or web address]) Posture Evaluation Comments Posture Comments pt stands in a very guarded posture and is shifted to the left in standing PT-OP-K Range of Motion Start: 11/11/18 10:30 Freq: Status: Active Protocol: Document 11/10/18 09:45 [facility] (Rec: 11/12/18 09:23 [facility] [email or web address]) Lumbar Spine Range of Motion Lumbar Spine Active Testing Position Standing Flexion 20 Extension 0 Rotation Left 35 Rotation Right 30 Lateral Flexion Left 10 Lateral Flexion Right 10 ROM Limitations Soft Tissue Tightness Comments Pt is very guarded in standing and did not want to push his back today with ROM testing Hip Goniometric Range of Motion Hip Right Flexion w/Knee Flexed 100 Straight Leg Raise 70 Extension 5 External Rotation 30 Left Flexion w/Knee Flexed 100 Straight Leg Raise 70 Extension 5 External Rotation 35 PT-OP-M Strength Start: 11/11/18 10:30 Freq: Status: Active Protocol: Document 11/10/18 09:45 [facility] (Rec: 11/12/18 09:23 [facility] [email or web address]) Hip Strength Hip Manual Muscle Testing Left Flexion (L2) 4 Good Extension (S1) 4 Good Abduction 4 Good Right Flexion (L2) 4 Good Extension (S1) 4 Good Abduction 4- Good- PT-OP-Q Treatments Start: 11/11/18 10:30 Freq: Status: Active Protocol: Document 11/23/18 13:03 MB (Rec: 11/23/18 13:46 MB [id number]) Therapeutic Exercises Supine Exercises Pelvic realignment exercises Comments Pelvic realignment exercises Manual Therapy Treatment Other Other Manual Treatments MWM B hip flexors with PT perform trigger point pressure and pt sliding heel PT-OP-R Modalities Start: 11/11/18 10:30 Freq: Status: Active Protocol: Document 11/18/18 16:45 MB (Rec: 11/18/18 17:51 MB [id number]) Electric Stimulation Electric Stimulation Interferential Current (IFC) Body Location low back Duration (Minutes) 15 Contraction Type Normal Patient Position Prone Combined With Heat/Cold Cold Pack PT-OP-T Assessment and Plan Start: 11/11/18 10:30 Freq: Status: Active Protocol: Document 11/23/18 13:03 MB (Rec: 11/23/18 13:46 MB [id number]) Physical Therapy Assessment Assessment Summary Assessment Initiated MWM for hip flexors and rectus femoris this date and pelvic realignment exercises, monitor response. Also worked hip flexor MWM in side lying with pt extended through hip, knee bent. Physical Therapy Plan Next Visit Focus/Plan Next Note Type Treatment Note Next Visit Plan Consider prone positioning and pelvic/LB sequence.
--- NOTE | 2018-11-26 13:49 | PT.OTN ---
Current Diagnoses Intervertebral disc disorders with radiculopathy, lumbar region (11/26/18) Strain of muscle, fascia and tendon of lower back, subsequent encounter (11/26/18) Physical Therapy Treatment Note PT-OP-A Visit Information Start: 11/10/18 09:53 Freq: Status: Active Protocol: Document 11/26/18 13:05 MB (Rec: 11/26/18 13:43 MB [id number]) Out-Patient Physical Therapy Visit Information Visit Information Visit Type Treatment Note Visit Start Time 13:05 Visit Stop Time 14:00 Total Visit Minutes 55 Visit Number 5 PT-OP-B Current Condition Start: 11/10/18 09:53 Freq: Status: Active Protocol: Document 11/10/18 09:45 [facility] (Rec: 11/12/18 09:08 [facility] [email or web address]) Current Condition History of Current Condition Onset Date 2011 Current Complaints c/o constant back pain and intermittent pain referred down B LE, rates pain History of Current Condition 56 year old male seen in PT previously who would like a steroid injection but needs to complete another round of PT first as he has changed insurance. He describes he has had back pain since 2002 but in 2011 is when he sustained a L5 disc injury. He has had steriod injections but still feeling pain. Would like an additional steroid injection. Current MRI shos multilevel degenerative disc disease and facet disease, mulilevel canal stenoses, multilevel foraminal stenosis worse at L5-S1 on the right. Pt reports he did not like PT last round as he felt he got pushed too hard and pain increased. 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 He did not perform exercises yesterday. PT-OP-F Manual Assessment Start: 11/11/18 10:30 Freq: Status: Active Protocol: Document 11/10/18 09:45 [facility] (Rec: 11/12/18 09:23 [facility] [email or web address]) Manual Assessments Soft Tissue Assessment Soft Tissue Mobility Assessment lumbar paraspinals in a guarded state at rest Right quadricep is tight and guarded, tightness and decreased flexibility of iliopsoas, piriforms, and ITB bilaterally PT-OP-J Posture/Palpation/Skin Start: 11/11/18 10:30 Freq: Status: Active Protocol: Document 11/10/18 09:45 [facility] (Rec: 11/12/18 09:23 [facility] [email or web address]) Posture Evaluation Comments Posture Comments pt stands in a very guarded posture and is shifted to the left in standing PT-OP-K Range of Motion Start: 11/11/18 10:30 Freq: Status: Active Protocol: Document 11/10/18 09:45 [facility] (Rec: 11/12/18 09:23 [facility] [email or web address]) Lumbar Spine Range of Motion Lumbar Spine Active Testing Position Standing Flexion 20 Extension 0 Rotation Left 35 Rotation Right 30 Lateral Flexion Left 10 Lateral Flexion Right 10 ROM Limitations Soft Tissue Tightness Comments Pt is very guarded in standing and did not want to push his back today with ROM testing Hip Goniometric Range of Motion Hip Right Flexion w/Knee Flexed 100 Straight Leg Raise 70 Extension 5 External Rotation 30 Left Flexion w/Knee Flexed 100 Straight Leg Raise 70 Extension 5 External Rotation 35 PT-OP-M Strength Start: 11/11/18 10:30 Freq: Status: Active Protocol: Document 11/10/18 09:45 [facility] (Rec: 11/12/18 09:23 [facility] [email or web address]) Hip Strength Hip Manual Muscle Testing Left Flexion (L2) 4 Good Extension (S1) 4 Good Abduction 4 Good Right Flexion (L2) 4 Good Extension (S1) 4 Good Abduction 4- Good- PT-OP-Q Treatments Start: 11/11/18 10:30 Freq: Status: Active Protocol: Document 11/26/18 13:05 MB (Rec: 11/26/18 13:43 MB [id number]) Therapeutic Exercises Supine Exercises Mohsen stretch Supine Exercise Name Increased tension on the right and so left foot on plinth for right stretch Hamstring, calf and AP stretch Supine Exercise Name Hamstring, calf and AP, hip add/abd stretch Comments Use of martial art belt, 2 reps all positions each leg Other Exercises Pelvic realignment exercises Comments Pelvic realignment exercises Manual Therapy Treatment Soft Tissue Mobilization STM B vastus lateralis Comments Pt supine, use of rolling pin PT-OP-R Modalities Start: 11/11/18 10:30 Freq: Status: Active Protocol: Document 11/18/18 16:45 MB (Rec: 11/18/18 17:51 MB [id number]) Electric Stimulation Electric Stimulation Interferential Current (IFC) Body Location low back Duration (Minutes) 15 Contraction Type Normal Patient Position Prone Combined With Heat/Cold Cold Pack PT-OP-T Assessment and Plan Start: 11/11/18 10:30 Freq: Status: Active Protocol: Document 11/26/18 13:05 MB (Rec: 11/26/18 13:43 MB [id number]) Physical Therapy Assessment Rehab Potential Rehabilitation Potential Fair Evaluation Complexity Number of Personal Factors/Comorbidities 0 Number of Body Systems Impaired 1-2 Clinical Presentation at Evaluation Stable Impairments Impairments Activity Tolerance,Functional Activities,Functional Mobility ,Pain,Posture,ROM,Soft Tissue Mobility,Strength Goals Four Impairment Loss of lumbar spine ROM especially lumbar flexion Pulley Worker Goal (LTG) Johnnie is educated in a flexibility program for the lumbar spine and demonstrates improved Lumbar spine ROM into flexion by 20 degrees Three Impairment Low back pain rated 8-10/10 Senior Living Goal (LTG) Johnnie is able to tolerate a stretching program for the lumbar spine and hip muscles and reports a reduction in Low back pain by 2-3 points LTG Duration 8 weeks Two Impairment Tight bilateral HIP flexors, ER Rotators, IT band, Quads Pulley Worker Goal (LTG) Patient will exhibit full excursion to bilateral hip rotators, flexors, IT band and quads to improve lumbar alignment. One Impairment Increased Lumbar lordosis Pulley Worker Goal (LTG) Patient roger exhibit neutral lumbar curve in all dynamic mobility to decrease lumbar strain. Assessment Summary Assessment Pt is not very communicative about what is helpful with PT. Unsure how often he is performing HEP, he con't to have manual work requirements.
--- NOTE | 2018-11-26 13:54 | PT.OTN ---
Current Diagnoses Intervertebral disc disorders with radiculopathy, lumbar region (11/26/18) Strain of muscle, fascia and tendon of lower back, subsequent encounter (11/26/18) Physical Therapy Treatment Note PT-OP-A Visit Information Start: 11/10/18 09:53 Freq: Status: Active Protocol: Document 11/26/18 13:05 MB (Rec: 11/26/18 13:43 MB [id number]) Out-Patient Physical Therapy Visit Information Visit Information Visit Type Treatment Note Visit Start Time 13:05 Visit Stop Time 14:00 Total Visit Minutes 55 Visit Number 5 PT-OP-B Current Condition Start: 11/10/18 09:53 Freq: Status: Active Protocol: Document 11/10/18 09:45 [facility] (Rec: 11/12/18 09:08 [facility] [id number]) Current Condition History of Current Condition Onset Date 2011 Current Complaints c/o constant back pain and intermittent pain referred down B LE, rates pain History of Current Condition 56 year old male seen in PT previously who would like a steroid injection but needs to complete another round of PT first as he has changed insurance. He describes he has had back pain since 2002 but in 2011 is when he sustained a L5 disc injury. He has had steriod injections but still feeling pain. Would like an additional steroid injection. Current MRI shos multilevel degenerative disc disease and facet disease, mulilevel canal stenoses, multilevel foraminal stenosis worse at L5-S1 on the right. Pt reports he did not like PT last round as he felt he got pushed too hard and pain increased. He wants to proceed slowly with this round of PT Treatment Goals Patient/Caregiver Goals The patient would like a additional steroid injection, his goals are pain releif Prior Functional Status Baseline Function- ADL's Independent Baseline Function- Mobility Independent Baseline Function- Other The pain is severe and limits walking short distances and sitting for more than 10 minutes, limits sleeping and restricts travel Current Functional Impairments (Reported) Functional Limitations- ADL's The pain is severe and limits walking short distances and sitting for more than 10 minutes, limits sleeping and restricts traveling passenger agent-OP-C Subjective Start: 11/10/18 09:53 Freq: Status: Active Protocol: Document 11/26/18 13:05 MB (Rec: 11/26/18 13:43 MB [id number]) OP-PT Subjective Patient Comments Patient Comments Pt states that his low back is hurting today after work yesterday. He did not perform exercises yesterday. PT-OP-F Manual Assessment Start: 11/11/18 10:30 Freq: Status: Active Protocol: Document 11/10/18 09:45 [facility] (Rec: 11/12/18 09:23 [facility] [id number]) Manual Assessments Soft Tissue Assessment Soft Tissue Mobility Assessment lumbar paraspinals in a guarded state at rest Right quadricep is tight and guarded, tightness and decreased flexibility of iliopsoas, piriforms, and ITB bilaterally PT-OP-J Posture/Palpation/Skin Start: 11/11/18 10:30 Freq: Status: Active Protocol: Document 11/10/18 09:45 [facility] (Rec: 11/12/18 09:23 [facility] [email or web address]) Posture Evaluation Comments Posture Comments pt stands in a very guarded posture and is shifted to the left in standing PT-OP-K Range of Motion Start: 11/11/18 10:30 Freq: Status: Active Protocol: Document 11/10/18 09:45 [facility] (Rec: 11/12/18 09:23 [facility] [email or web address]) Lumbar Spine Range of Motion Lumbar Spine Active Testing Position Standing Flexion 20 Extension 0 Rotation Left 35 Rotation Right 30 Lateral Flexion Left 10 Lateral Flexion Right 10 ROM Limitations Soft Tissue Tightness Comments Pt is very guarded in standing and did not want to push his back today with ROM testing Hip Goniometric Range of Motion Hip Right Flexion w/Knee Flexed 100 Straight Leg Raise 70 Extension 5 External Rotation 30 Left Flexion w/Knee Flexed 100 Straight Leg Raise 70 Extension 5 External Rotation 35 PT-OP-M Strength Start: 11/11/18 10:30 Freq: Status: Active Protocol: Document 11/10/18 09:45 [facility] (Rec: 11/12/18 09:23 [facility] [email or web address]) Hip Strength Hip Manual Muscle Testing Left Flexion (L2) 4 Good Extension (S1) 4 Good Abduction 4 Good Right Flexion (L2) 4 Good Extension (S1) 4 Good Abduction 4- Good- PT-OP-Q Treatments Start: 11/11/18 10:30 Freq: Status: Active Protocol: Document 11/26/18 13:05 MB (Rec: 11/26/18 13:43 MB [id number]) Therapeutic Exercises Supine Exercises Mohsen stretch Supine Exercise Name Increased tension on the right and so left foot on plinth for right stretch Hamstring, calf and AP stretch Supine Exercise Name Hamstring, calf and AP, hip add/abd stretch Comments Use of martial art belt, 2 reps all positions each leg Other Exercises Pelvic realignment exercises Comments Pelvic realignment exercises Manual Therapy Treatment Soft Tissue Mobilization STM B vastus lateralis Comments Pt supine, use of rolling pin PT-OP-R Modalities Start: 11/11/18 10:30 Freq: Status: Active Protocol: Document 11/26/18 13:05 MB (Rec: 11/26/18 13:54 MB [id number]) Electric Stimulation Electric Stimulation Interferential Current (IFC) Body Location low back Duration (Minutes) 15 Contraction Type Normal Patient Position Prone Combined With Heat/Cold Cold Pack PT-OP-T Assessment and Plan Start: 11/11/18 10:30 Freq: Status: Active Protocol: Document 11/26/18 13:05 MB (Rec: 11/26/18 13:43 MB [id number]) Physical Therapy Assessment Rehab Potential Rehabilitation Potential Fair Evaluation Complexity Number of Personal Factors/Comorbidities 0 Number of Body Systems Impaired 1-2 Clinical Presentation at Evaluation Stable Impairments Impairments Activity Tolerance,Functional Activities,Functional Mobility ,Pain,Posture,ROM,Soft Tissue Mobility,Strength Goals Four Impairment Loss of lumbar spine ROM especially lumbar flexion Half-Way Goal (LTG) Johnnie is educated in a flexibility program for the lumbar spine and demonstrates improved Lumbar spine ROM into flexion by 20 degrees Three Impairment Low back pain rated 8-10/10 Half-Way Goal (LTG) Johnnie is able to tolerate a stretching program for the lumbar spine and hip muscles and reports a reduction in Low back pain by 2-3 points LTG Duration 8 weeks Two Impairment Tight bilateral HIP flexors, ER Rotators, IT band, Quads Beauty Culturist Apprentice Goal (LTG) Patient will exhibit full excursion to bilateral hip rotators, flexors, IT band and quads to improve lumbar alignment. One Impairment Increased Lumbar lordosis Beauty Culturist Apprentice Goal (LTG) Patient roger exhibit neutral lumbar curve in all dynamic mobility to decrease lumbar strain. Assessment Summary Assessment Pt is not very communicative about what is helpful with PT. Unsure how often he is performing HEP, he con't to have manual work requirements.
--- NOTE | 2018-11-30 13:58 | PT.OTN ---
Current Diagnoses Intervertebral disc disorders with radiculopathy, lumbar region (11/30/18) Strain of muscle, fascia and tendon of lower back, subsequent encounter (11/30/18) Physical Therapy Treatment Note PT-OP-A Visit Information Start: 11/10/18 09:53 Freq: Status: Active Protocol: Document 11/30/18 13:05 MB (Rec: 11/30/18 13:57 MB [id number]) Out-Patient Physical Therapy Visit Information Visit Information Visit Type Treatment Note Visit Start Time 13:05 Visit Stop Time 14:05 Total Visit Minutes 60 Visit Number 08/03 PT-OP-B Current Condition Start: 11/10/18 09:53 Freq: Status: Active Protocol: Document 11/10/18 09:45 [facility] (Rec: 11/12/18 09:08 [facility] [id number]) Current Condition History of Current Condition Onset Date 2011 Current Complaints c/o constant back pain and intermittent pain referred down B LE, rates pain History of Current Condition 56 year old male seen in PT previously who would like a steroid injection but needs to complete another round of PT first as he has changed insurance. He describes he has had back pain since 2002 but in 2011 is when he sustained a L5 disc injury. He has had steriod injections but still feeling pain. Would like an additional steroid injection. Current MRI shos multilevel degenerative disc disease and facet disease, mulilevel canal stenoses, multilevel foraminal stenosis worse at L5-S1 on the right. Pt reports he did not like PT last round as he felt he got pushed too hard and pain increased. He wants to proceed slowly with this round of PT Treatment Goals Patient/Caregiver Goals The patient would like a additional steroid injection, his goals are pain releif Prior Functional Status Baseline Function- ADL's Independent Baseline Function- Mobility Independent Baseline Function- Other The pain is severe and limits walking short distances and sitting for more than 10 minutes, limits sleeping and restricts travel Current Functional Impairments (Reported) Functional Limitations- ADL's The pain is severe and limits walking short distances and sitting for more than 10 minutes, limits sleeping and restricts travel consultant-OP-C Subjective Start: 11/10/18 09:53 Freq: Status: Active Protocol: Document 11/30/18 13:05 MB (Rec: 11/30/18 13:57 MB [id number]) OP-PT Subjective Patient Comments Patient Comments Pt states that he had a bad cramping night with his legs and that he cannot do any exercises with his legs today. PT-OP-F Manual Assessment Start: 11/11/18 10:30 Freq: Status: Active Protocol: Document 11/10/18 09:45 [facility] (Rec: 11/12/18 09:23 [facility] [email or web address]) Manual Assessments Soft Tissue Assessment Soft Tissue Mobility Assessment lumbar paraspinals in a guarded state at rest Right quadricep is tight and guarded, tightness and decreased flexibility of iliopsoas, piriforms, and ITB bilaterally PT-OP-J Posture/Palpation/Skin Start: 11/11/18 10:30 Freq: Status: Active Protocol: Document 11/10/18 09:45 [facility] (Rec: 11/12/18 09:23 [facility] [email or web address]) Posture Evaluation Comments Posture Comments pt stands in a very guarded posture and is shifted to the left in standing PT-OP-K Range of Motion Start: 11/11/18 10:30 Freq: Status: Active Protocol: Document 11/10/18 09:45 [facility] (Rec: 11/12/18 09:23 [facility] [email or web address]) Lumbar Spine Range of Motion Lumbar Spine Active Testing Position Standing Flexion 20 Extension 0 Rotation Left 35 Rotation Right 30 Lateral Flexion Left 10 Lateral Flexion Right 10 ROM Limitations Soft Tissue Tightness Comments Pt is very guarded in standing and did not want to push his back today with ROM testing Hip Goniometric Range of Motion Hip Right Flexion w/Knee Flexed 100 Straight Leg Raise 70 Extension 5 External Rotation 30 Left Flexion w/Knee Flexed 100 Straight Leg Raise 70 Extension 5 External Rotation 35 PT-OP-M Strength Start: 11/11/18 10:30 Freq: Status: Active Protocol: Document 11/10/18 09:45 [facility] (Rec: 11/12/18 09:23 [facility] [email or web address]) Hip Strength Hip Manual Muscle Testing Left Flexion (L2) 4 Good Extension (S1) 4 Good Abduction 4 Good Right Flexion (L2) 4 Good Extension (S1) 4 Good Abduction 4- Good- PT-OP-Q Treatments Start: 11/11/18 10:30 Freq: Status: Active Protocol: Document 11/30/18 13:05 MB (Rec: 11/30/18 13:57 MB [id number]) Manual Therapy Treatment Other Other Manual Treatments Positional release B gastroc soleus and hamstrings, increased tension on the right and fasiculations right calf. PT-OP-R Modalities Start: 11/11/18 10:30 Freq: Status: Active Protocol: Document 11/30/18 13:05 MB (Rec: 11/30/18 13:58 MB [id number]) Electric Stimulation Electric Stimulation Interferential Current (IFC) Body Location low back Duration (Minutes) 15 Contraction Type Normal Patient Position Prone Combined With Heat/Cold Cold Pack PT-OP-T Assessment and Plan Start: 11/11/18 10:30 Freq: Status: Active Protocol: Document 11/30/18 13:05 MB (Rec: 11/30/18 13:57 MB [id number]) Physical Therapy Assessment Rehab Potential Rehabilitation Potential Fair Evaluation Complexity Number of Personal Factors/Comorbidities 0 Number of Body Systems Impaired 1-2 Clinical Presentation at Evaluation Stable Impairments Impairments Activity Tolerance,Functional Activities,Functional Mobility ,Pain,Posture,ROM,Soft Tissue Mobility,Strength Goals Four Impairment Loss of lumbar spine ROM especially lumbar flexion Jail Goal (LTG) Johnnie is educated in a flexibility program for the lumbar spine and demonstrates improved Lumbar spine ROM into flexion by 20 degrees Three Impairment Low back pain rated 8-10/10 Jail Goal (LTG) Johnnie is able to tolerate a stretching program for the lumbar spine and hip muscles and reports a reduction in Low back pain by 2-3 points LTG Duration 8 weeks Two Impairment Tight bilateral HIP flexors, ER Rotators, IT band, Quads Helper Animal [employer] Goal (LTG) Patient will exhibit full excursion to bilateral hip rotators, flexors, IT band and quads to improve lumbar alignment. One Impairment Increased Lumbar lordosis Jail Goal (LTG) Patient roger exhibit neutral lumbar curve in all dynamic mobility to decrease lumbar strain. Assessment Summary Assessment Pt reports that his back is okay today but his legs are terrible and it seems that this happens often--that either is back is good and legs are bad or back is bad and legs are good. He has not progressed significantly towards PT goals since starting PT. He to follow-up with spinal doctor in 2 weeks. Plan to hold PT until his follow-up. Barriers to PT have been ongoing pain flare-ups and this date, his right calf fasiculates throughout positional release. Pt to con' t with pelvic realignment, flexibility and core progression. Physical Therapy Plan Frequency and Duration Frequency of Treatment 2x/Week Duration of Treatment 8 Plan of Care Start Date 11/10/18 Plan of Care End Date 01/05/19 Hold Physical Therapy Reason For Hold Pt to follow-up with spinal doctor in 2 weeks to determine about MRI vs injuection. Given limited visist per year (24) and little progress towards PT goals at this time, will hold until pt followw-up with doctor and then con't PT . Next Visit Focus/Plan Next Note Type Treatment Note Next Visit Plan Con't to monitor response to therapy. Consider teaching rolling pin massage.
--- NOTE | 2018-12-22 08:38 | PT.OPDS ---
Current Diagnoses Intervertebral disc disorders with radiculopathy, lumbar region (11/30/18) Strain of muscle, fascia and tendon of lower back, subsequent encounter (11/30/18) Visit Care Team Role Provider Type Jermaine Liu MD Family Provider Non-Staff Primary Care Provider Specialty: Family Practice Address: [address] [facility], [address], [place], [address] Email: Carlitos Del Castillo MD Attending Provider Physician Specialty: Orthopedic Surgery Address: [address] [place] [address], [address] Email: [email or web address] Visit Number Visit Number 08/03 Discharge Summary PT-OP-B Current Condition Start: 11/10/18 09:53 Freq: Status: Active Protocol: Document 11/10/18 09:45 AMH (Rec: 11/12/18 09:08 AMH [email or web address]) Current Condition History of Current Condition Onset Date 2011 Current Complaints c/o constant back pain and intermittent pain referred down B LE, rates pain History of Current Condition 56 year old male seen in PT previously who would like a steroid injection but needs to complete another round of PT first as he has changed insurance. He describes he has had back pain since 2002 but in 2011 is when he sustained a L5 disc injury. He has had steriod injections but still feeling pain. Would like an additional steroid injection. Current MRI shos multilevel degenerative disc disease and facet disease, mulilevel canal stenoses, multilevel foraminal stenosis worse at L5-S1 on the right. Pt reports he did not like PT last round as he felt he got pushed too hard and pain increased. 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 PT-OP-F Manual Assessment Start: 11/11/18 10:30 Freq: Status: Active Protocol: Document 11/10/18 09:45 AMH (Rec: 11/12/18 09:23 AMH [email or web address]) Manual Assessments Soft Tissue Assessment Soft Tissue Mobility Assessment lumbar paraspinals in a guarded state at rest Right quadricep is tight and guarded, tightness and decreased flexibility of iliopsoas, piriforms, and ITB bilaterally PT-OP-J Posture/Palpation/Skin Start: 11/11/18 10:30 Freq: Status: Active Protocol: Document 11/10/18 09:45 AMH (Rec: 11/12/18 09:23 AMH [email or web address]) Posture Evaluation Comments Posture Comments pt stands in a very guarded posture and is shifted to the left in standing PT-OP-K Range of Motion Start: 11/11/18 10:30 Freq: Status: Active Protocol: Document 11/10/18 09:45 AMH (Rec: 11/12/18 09:23 AMH [email or web address]) Lumbar Spine Range of Motion Lumbar Spine Active Testing Position Standing Flexion 20 Extension 0 Rotation Left 35 Rotation Right 30 Lateral Flexion Left 10 Lateral Flexion Right 10 ROM Limitations Soft Tissue Tightness Comments Pt is very guarded in standing and did not want to push his back today with ROM testing Hip Goniometric Range of Motion Hip Right Flexion w/Knee Flexed 100 Straight Leg Raise 70 Extension 5 External Rotation 30 Left Flexion w/Knee Flexed 100 Straight Leg Raise 70 Extension 5 External Rotation 35 PT-OP-M Strength Start: 11/11/18 10:30 Freq: Status: Active Protocol: Document 11/10/18 09:45 AMH (Rec: 11/12/18 09:23 AMH [email or web address]) Hip Strength Hip Manual Muscle Testing Left Flexion (L2) 4 Good Extension (S1) 4 Good Abduction 4 Good Right Flexion (L2) 4 Good Extension (S1) 4 Good Abduction 4- Good- PT-OP-T Assessment and Plan Start: 11/11/18 10:30 Freq: Status: Active Protocol: Document 12/22/18 08:37 MB (Rec: 12/22/18 08:38 MB [id number]) Physical Therapy Plan Discharge Physical Therapy Discharge Reasons No Longer Attending PT Discharge Comments Pt has had two cancelled appointments and two no show appointments during PT course since October 2018. PT called pt's home and cell numbers and left message on his cell number. Will d/c PT and cancel future appointments . Pt was to follow-up with his doctor about possible spinal dxs and injection and to follow-up with PT after.
== END 2018-12-25 12:30 ==
LOC: PHYS 13:00
PROVIDERS: Family Provider Family Medicine; PCP Family Medicine; Visit Provider Orthopaedic Surgery
DX: M51.16 Intervertebral disc disorders with radiculopathy, lumbar region (principal); S39.012D Strain of muscle, fascia and tendon of lower back, subsequent encounter
CPT/HCPCS: 97014; 97110; 97140; 97161; G0283

== ENCOUNTER → 2018-12-31 08:02 | Outpatient (CLI) | payer OTHER, MEDICAID, SELFPAY ==
--- NOTE | 2018-12-31 | DI.US.S_ITS ---
PROCEDURE: US ABDOMEN COMPLETE INDICATIONS: FOLLOW-UP HEMANGIOMAS TECHNIQUE: Real-time scanning was performed of the abdominal and retroperitoneal organs, with image documentation. COMPARISON: [facility], US, US ABDOMEN COMPLETE, 07/22/2018, 15:47. [facility], US, US ABDOMEN COMPLETE, 02/04/2018, 13:14. FINDINGS: Liver: Liver is normal in size and unchanged in echotexture with 2 small hyperechoic foci noted within the posterior right hepatic lobe measuring up to 1.3 cm and the medial left hepatic lobe measuring up to 1.8 cm. Gallbladder: Surgically absent Biliary ducts: Intrahepatic bile ducts are non-dilated. Extrahepatic bile duct caliber measures 4.3 mm. Normal is 6-7 mm or less in diameter, or 10 mm or less post-cholecystectomy. Pancreas: Visualized portions of the pancreas are sonographically normal. Spleen: Spleen is normal in size and homogeneous in echotexture. Kidneys: Kidneys are normal in size and echotexture. Right kidney measures 10.2 cm long; left kidney measures 10.6 cm long. No hydronephrosis or nephrolithiasis. No solid masses. Aorta: Visualized aorta is normal in caliber at less than 3 cm. Iliacs: Proximal common iliac arteries are normal in caliber at less than 2.5 cm. IVC: Intrahepatic inferior vena cava is patent. Miscellaneous: No free abdominal fluid. IMPRESSION: 2 small hepatic hemangiomas are present, one within the right posterior hepatic segment and the second within the medial left hepatic lobe. Dictated by: Candido Bernard M.D. on 12/31/2018 at 13:35 Approved by: Candido Bernard M.D. on 12/31/2018 at 13:37
== END ==
PROVIDERS: Family Provider Family Medicine; PCP Family Medicine; Visit Provider Internal Medicine Gastroenterology
DX: K76.9 Liver disease, unspecified (principal); D18.09 Hemangioma of other sites; Z90.49 Acquired absence of other specified parts of digestive tract
CPT/HCPCS: 76700

== ENCOUNTER → 2019-01-15 11:40 | Outpatient (CLI) | payer OTHER, MEDICAID, SELFPAY ==
--- NOTE | 2019-01-15 | DI.MRI.S_ITS ---
PROCEDURE: MR LUMBAR SPINE WO CON INDICATIONS: Other intervertebral disc displacement, lumbar reg TECHNIQUE: Noncontrast sagittal T1 spin echo and T2 fast echo, sagittal STIR, axial T1 and T2 fast spin echo through the lumbar spine. In cases with scoliosis, additional coronal T2 fast spin echo may be performed. COMPARISON: None. FINDINGS: Image quality: Excellent. Alignment and Curvature: There is normal bony alignment. Bone Marrow: Marrow is of normal overall signal. No acute vertebral body compression fractures. Spinal Cord: Conus medullaris terminates at the L1 level. Visualized cord demonstrates normal signal and size. Paraspinous Soft Tissues: No paravertebral masses. L1-L2: Normal appearance. L2-L3: Normal appearance. L3-L4: Slight loss of the signal. Mild, diffuse disc bulge. Small central disc protrusion. Mild narrowing of the central canal. No neural foraminal narrowing. No neural compression. L4-L5: Loss of the signal. Slight loss of disc height. Mild, diffuse disc bulge. Mild right facet hypertrophy. Mild narrowing of the central canal. Moderate right and mild left neural foraminal narrowing. No neural compression. Fissure noted in the right foraminal annulus. L5-S1: Loss of disc signal and height. Mild, diffuse disc bulge. Mild right facet hypertrophy. Right central disc protrusion. Right central disc protrusion impinges upon and compresses the traversing left S1 nerve root. No central stenosis. Severe right neural foraminal narrowing with compression of the exiting right L5 nerve root. IMPRESSION: 1. Multilevel degenerative disc disease. 2. Mild right L4-L5 and L5-S1 facet arthropathy. 3. Mild L3-L4 and L4-L5 central canal narrowing. 4. Severe right L5-S1 neural foraminal narrowing. Moderate right and mild left L4-L5 neural foraminal narrowing. 5. L5-S1 right central disc protrusion which compresses the traversing right S1 nerve root. 6. Compression of the exiting right L5 nerve root secondary to right L5-S1 neural foraminal narrowing. 7. L4-L5 disc annulus fissure. Dictated by: Cadence Mascorro MD, PhD on 01/15/2019 at 14:55 Approved by: Cadence Mascorro MD, PhD on 01/15/2019 at 15:25
== END ==
PROVIDERS: Family Provider Family Medicine; PCP Family Medicine; Visit Provider Orthopaedic Surgery
DX: M51.26 Other intervertebral disc displacement, lumbar region (principal); M51.27 Other intervertebral disc displacement, lumbosacral region; M51.36 Other intervertebral disc degeneration, lumbar region; M48.061 Spinal stenosis, lumbar region without neurogenic claudication; M48.07 Spinal stenosis, lumbosacral region; M47.816 Spondylosis without myelopathy or radiculopathy, lumbar region; M47.817 Spondylosis without myelopathy or radiculopathy, lumbosacral region
CPT/HCPCS: 72148

== ENCOUNTER → 2019-07-09 12:31 | Outpatient (CLI) | payer OTHER, MEDICAID, SELFPAY ==
--- NOTE | 2019-07-09 | DI.US.S_ITS ---
PROCEDURE: US ABDOMEN COMPLETE INDICATIONS: LIVER DISEASE TECHNIQUE: Real-time scanning was performed of the abdominal and retroperitoneal organs, with image documentation. COMPARISON: [facility], [place], ABDOMEN WITH CONTRAST, 05/15/2016, 10:38. [facility], US, US ABDOMEN COMPLETE, 12/31/2018, 8:15. [facility], US, US ABDOMEN COMPLETE, 07/22/2018, 15:47. FINDINGS: Liver: Liver is normal in size and homogeneous in echotexture, with no definite change in 2 hemangiomas previously identified. These are located at the medial left hepatic lobe and the posterior right hepatic segment. Considering differences in technique no change, with maximal dimension of 1-2 cm.. Gallbladder: Prior cholecystectomy. Biliary ducts: Intrahepatic bile ducts are non-dilated. Extrahepatic bile duct caliber measures 2.0 mm. Normal is 6-7 mm or less in diameter, or 10 mm or less post-cholecystectomy. Pancreas: Visualized portions of the pancreas are sonographically normal. Spleen: Spleen is normal in size and homogeneous in echotexture. Kidneys: Kidneys are normal in size and echotexture. Right kidney measures 10.5 cm long; left kidney measures 10.7 cm long. No hydronephrosis or nephrolithiasis. No solid masses. Aorta: Visualized aorta is normal in caliber at less than 3 cm. Iliacs: Proximal common iliac arteries are normal in caliber at less than 2.5 cm. IVC: Intrahepatic inferior vena cava is patent. Miscellaneous: No free abdominal fluid. IMPRESSION: Stable appearance of benign hepatic hemangiomas, to total, small in size. Prior cholecystectomy. Dictated by: Candido Bernard M.D. on 07/09/2019 at 13:54 Approved by: Candido Bernard M.D. on 07/09/2019 at 13:56
== END ==
PROVIDERS: Family Provider Family Medicine; PCP Family Medicine; Referring Provider Internal Medicine Gastroenterology; Visit Provider Internal Medicine Gastroenterology
DX: D18.09 Hemangioma of other sites (principal); Z90.49 Acquired absence of other specified parts of digestive tract
CPT/HCPCS: 76700

== ENCOUNTER 2019-08-14 15:05 | Emergency (ER) | payer OTHER, MEDICAID, SELFPAY ==
[2019-08-14 15:15] VITALS: BP 123/79; PULSE 69; RESP 16; TEMP 36.7; O2SAT 99; BMI 23.0
[2019-08-14 15:37] LABS: Appearance Urine UA CLEAR; Bilirubin Urine UA NEGATIVE (NEGATIVE); Color Urine UA YELLOW; Glucose Urine UA NEGATIVE (Negative); Ketones Urine UA NEGATIVE (NEGATIVE); Leukocyte Esterase Urine UA NEGATIVE (NEGATIVE); Nitrite Urine UA NEGATIVE (Negative); Occult Blood Urine UA 1+ (Negative); Protein Urine UA 1+ (Negative); Specific Gravity Urine UA 1.025 (1.000-1.035); Urobilinogen Urine UA 0.2 E.U./dL (0.2); pH Urine UA 6.5 (4.5-8.0)
[2019-08-14 15:45] LABS: Amorphous Sediment Urine 2+; Bacteria Urine Few (2-10); Mucus Urine 3+ (Negative); RBC Urine 5-10/HPF (0-5/HPF); WBC Urine 1-5/HPF (0-5/HPF)
[2019-08-14 15:46] LABS: Culture Indicated Urine Specimen Cultured
[2019-08-14] MEDS: metroNIDAZOLE 500 MG TABLET 2000 MG PO (16:08)
[2019-08-14] MEDS: AZITHROMYCIN 250 MG TABLET 1000 MG PO (16:09)
[2019-08-14] MEDS: PENICILLIN G BENZATHINE 1,200,000 UNIT/2 ML SYRINGE 2400000 UNIT IM (16:09)
[2019-08-14 16:28] VITALS: BP 130/70; PULSE 67; O2SAT 98
--- NOTE | 2019-08-14 17:07 | ED.ABDPAIN ---
HPI - Abdominal Pain General Chief Complaint: Abdominal Pain Stated Complaint: stomach issue x4 days Time Seen by Provider: 08/14/19 15:18 Source: patient Mode of arrival: Family Vehicle Limitations: no limitations History of Present Illness HPI narrative: CC: Exposed to syphillis HPI: The patient is a 59-year-old male who states that last week he had intercourse with his ex-girlfriend. Her best friend called and told him that she had secondary syphilis. The patient states that he has been for 1 year from his . He denies that he has had any urinary symptoms. He has had no dysuria no pyuria urgency no penile discharge nor ulcers or chancres over his penis. Patient states that he has intermittent nausea with indigestion and heartburn for which she is on Protonix. He denies any abdominal cramps, or vomiting but he has had an upset stomach with mild nausea. He denies a head ice tree of pancreatitis. He states that he has had his gallbladder out and that he has an ultrasound every 6 months of his liver that they were watching a lesion on his liver. He is having no abdominal pain at this time. He denies a history of asthma myocardial infarction hypertension pancreatitis and diabetes. He does not smoke cigarettes drink alcohol or use any drugs including marijuana. He denies any fever chills sweats headache sore throat dysphasia chest pain cough shortness of breath palpitations back ache joint aches abdominal pain, or urinary symptoms. Related Data Home Medications Medication Instructions Recorded Confirmed magnesium amino acid chelate #0 02/13/17 01/09/19 ranitidine HCl 150 mg tablet 150 mg PO DAILY 08/19/17 01/09/19 pantoprazole 40 mg tablet,delayed 40 mg PO DAILY 05/16/18 01/09/19 release Previous Rx's Medication Instructions Recorded oxycodone 5 mg capsule 5 mg PO Q6H PRN #15 cap 01/07/18 sumatriptan succinate 50 mg tablet 50 mg PO Q2H PRN #30 tab 03/20/18 sucralfate 100 mg/mL oral 10 ml PO QID #420 ml 05/16/18 suspension duloxetine 30 mg capsule,delayed 30 mg PO DAILY #60 cap 05/25/18 release trazodone 100 mg tablet 100 mg PO DAILY #30 tab 06/29/18 lidocaine 5 % topical ointment 1 applictn TOP TID-QID PRN #30 gram 08/11/18 cyclobenzaprine 10 mg PO TID PRN #20 tab 10/29/18 hydrocodone-acetaminophen 1 tab PO Q4-6H PRN #5 tab 10/29/18 ketorolac 10 mg PO QID PRN #20 tab 10/29/18 prednisone 50 mg PO DAILY #5 tab 10/29/18 nifedipine See Rx Instructions .ROUTE 12/17/18 .COMPLEX #30 gram amoxicillin 875 mg-potassium 1 tab PO BID #20 tab 01/09/19 clavulanate 125 mg tablet chlorhexidine gluconate 0.12 % 15 ml BUCCAL BID #118 ml 01/09/19 mouthwash Allergies Allergy/AdvReac Type Severity Reaction Status Date / Time nortriptyline [NORTRIPTYLINE] Allergy Unknown Verified 01/09/19 16:38 tramadol AdvReac Mild rash Verified 01/09/19 16:38 Review of Systems Review of Systems Narrative: The patient's review of systems were all negative except for those mentioned in the history of present illness. Patient History Medical History Anemia (Resolved 2006) BRBPR (bright red blood per rectum) (Resolved 2006) Chicken pox (Resolved) Degenerative joint disease (DJD) of lumbar spine (Chronic) Hyperlipidemia, mild (Chronic) Ibuprofen adverse reaction (Resolved) Measles (Resolved) Stomach ulcer (Resolved) Surgical History Anesthesia (Resolved) History of colonoscopy (Resolved 2006) History of colonoscopy (Resolved 2016) History of repair of left rotator cuff (Resolved 2001) Status post left foot surgery (Resolved 1987) Family History Father Age: 89 Prostate cancer Aging Pacemaker Grandfather Heart disease Heart attack Smoker Grandmother Mental health problem Alzheimer's disease Grandfather No problems noted. Grandmother No problems noted. Mother Aging IBS (irritable bowel syndrome) Sister Liver disease Social History marital status: pets and animals: Yes education level: college other: walking,boating,gardening Smoking Status: Never smoker alcohol intake: never during the past year weight has: remained stable well-balanced diet: about half the time daily servings fruits/ve-1 caffeine: Yes (rare) eating out: rarely or never Type(s) of exercise: walking Smoking Status: Never smoker alcohol intake frequency: 0-2 drinks per day Substance Use Type: does not use Exam Narrative Exam Narrative: PHYSICAL EXAM: CONSTITUTIONAL: Awake, Alert, Oriented, Coherent, Cooperative in NAD. Does not appear toxic or ill. HEAD: AT/NC EENT: PERRL, FROM of eyes, NOSE:No epistaxis or nasal drainage MOUTH:Oral mucosa is moist and pink, NECK: Supple, no obvious JVD, Trachea is midline without stridor, no palpable LN. SPINE: Palpation of the cervical, Thoracic, Lumbar or Sacral spine reveals no gross deformity or tenderness. No CVA tenderness. THORAX: No deformity, retractions, chest wall tenderness. LUNGS: Clear, symmetrical breath sounds without respiratory distress. HEART: Normal heart tones, regular rhythm and rate without murmur. ABDOMEN: Soft, non-tender, . Genital exam reveals that the patient has a normal adult fail is that is circumcised without any ulcers or lesions over his glans penis or shank. There is no penile discharge. Both testicles are descended nontender no palpable nodules no tenderness to palpation over the epididymis no appreciable hernia EXTREMITIES: No edema, deformity, tenderness . SKIN: No rash, bruising, NEURO: Awake, alert, oriented, conversive, cranial nerves II-XII are symmetrical , moves all 4 extremities and is ambulatory. MENTAL HEALTH: Does not appear anxious or depressed. Initial Vital Signs Initial Vital Signs: Vital Signs Temperature 98.0 F 08/14/19 15:15 Pulse Rate 69 08/14/19 15:15 Respiratory Rate 16 08/14/19 15:15 Blood Pressure 123/79 08/14/19 15:15 Pulse Oximetry 99 08/14/19 15:15 Course Orders Ordered: Discontinued Medications Azithromycin (Zithromax) 1,000 mg PO NOW ONE Stop: 08/14/19 15:53 Last Admin: 08/14/19 16:09 Dose: 1,000 mg Documented by: CELESTINA Metronidazole (Metronidazole) 2,000 mg PO NOW ONE Stop: 08/14/19 15:48 Last Admin: 08/14/19 16:08 Dose: 2,000 mg Documented by: CELESTINA Penicillin G Benzathine (Bicillin L-A) 2,400,000 unit IM NOW ONE Stop: 08/14/19 15:46 Last Admin: 08/14/19 16:09 Dose: 2,400,000 unit Documented by: CELESTINA Vital Signs Vital signs: Vital Signs - 8 hr 08/14/19 15:15 08/14/19 16:28 Temperature 98.0 F Pulse Rate 69 67 Respiratory Rate 16 Blood Pressure 123/79 130/70 Pulse Oximetry 99 98 MDM - Abdominal Pain Lab Data Labs: Lab Results 08/14/19 08/14/19 Range/Units 15:30 15:30 Urine Color Yellow Urine Appearance Clear Urine pH 6.5 (4.5-8.0) Ur Specific [place] 1.025 (1.000-1.035) Urine Protein 1+ H (Negative) Urine Glucose (UA) Negative (Negative) g/dL Urine Ketones Negative (NEGATIVE) Urine Occult Blood 1+ H (Negative) Urine Nitrate Negative (Negative) Urine Bilirubin Negative (NEGATIVE) Urine Urobilinogen 0.2 (0.2) E.U./dL Ur Leukocyte Esterase Negative (NEGATIVE) Urine RBC 5-10/hpf H (0-5/HPF) Urine WBC 1-5/hpf (0-5/HPF) Amorphous Sediment 2+ Urine Bacteria Few (2-10) H (None) Urine Mucus 3+ H (Negative) Ur Culture Indicated? Specimen cultured Ur Chlamydia DNA (PCR) Not detected N gonorrhoeae DNA (PCR) Not detected Discharge Plan Departure Patient Disposition: Home Clinical Impression: Syphilis contact Discharge Date/Time: 08/14/19 16:49 Instructions: Chlamydia: The Silent STD, DI for Dyspepsia, DI for Syphilis Activity Restrictions/Additional Instructions: 1. Follow up with your primary care physician 2. Based on your history you have been treated for syphilis and any other possible STD such as chlamydia and gonorrhea. 3. Do not drink alcohol for the next 5 days. 4. Keep yourself hydrated by drinking 2-4 L of fluid per day. 5. If you develop any testicular pain, ulcers or sores on your penis, or any penile discharge return to the emergency department. Prescriptions: No Action pantoprazole [Protonix] 40 mg tablet,delayed release (DR/EC) 40 mg PO DAILY RF: 0 sucralfate 100 mg/mL suspension 10 ml PO QID Qty: 420 RF: 0 amoxicillin-pot clavulanate [Augmentin] 875-125 mg tablet 1 tab PO BID Qty: 20 RF: 0 chlorhexidine gluconate 0.12 % mouthwash 15 ml BUCCAL BID Qty: 118 RF: 0 lidocaine 5 % ointment 1 applictn TOP TID-QID PRN (Reason: pain) Qty: 30 RF: 2 magnesium amino acid chelate 100 mg Tablet Qty: 0 RF: 0 trazodone 100 mg tablet 100 mg PO DAILY Qty: 30 RF: 0 oxycodone 5 mg capsule 5 mg PO Q6H PRN (Reason: pain) Qty: 15 RF: 0 sumatriptan succinate 50 mg tablet 50 mg PO Q2H PRN (Reason: migraine headache) Qty: 30 RF: 10 ranitidine HCl [Acid Control (ranitidine)] 150 mg tablet 150 mg PO DAILY RF: 0 duloxetine 30 mg capsule,delayed release(DR/EC) 30 mg PO DAILY Qty: 60 RF: 2 nifedipine 0.2 % cream See Rx Instructions .ROUTE .COMPLEX Qty: 30 RF: 1 hydrocodone-acetaminophen 5-325 mg tablet 1 tab PO Q4-6H PRN (Reason: pain) Qty: 5 RF: 0 cyclobenzaprine 10 mg tablet 10 mg PO TID PRN (Reason: muscle spasm) Qty: 20 RF: 0 ketorolac 10 mg tablet 10 mg PO QID PRN (Reason: pain) Qty: 20 RF: 0 prednisone 50 mg tablet 50 mg PO DAILY Qty: 5 RF: 0 Referrals: Jermaine Liu MD [Primary Care Provider] -
[2019-08-14 18:43] LABS: Urine N gonorrhoeae NOT DETECTED
[2019-08-14 18:48] LABS: Urine Chlamydia NOT DETECTED
== END 2019-08-14 16:49 | disposition home or self-care (01) ==
PROVIDERS: Emergency Provider Emergency Medicine; Family Provider Family Medicine; PCP Family Medicine
DX: Z20.2 Contact with and (suspected) exposure to infections with a predominantly sexual mode of transmission (principal); A53.9 Syphilis, unspecified
CPT/HCPCS: 81001; 87086; 87491; 87591; 96372; 99283; J0561

== ENCOUNTER 2019-12-06 22:16 | Emergency (ER) | payer OTHER, MEDICAID, SELFPAY ==
[2019-12-06 22:20] VITALS: BP 122/65; PULSE 76; RESP 16; TEMP 36.7; O2SAT 100; BMI 22.4
--- NOTE | 2019-12-06 22:48 | ED_ITS ---
HPI - Skin/Abscess/Foreign Bdy General Chief complaint: Skin/Abscess/Foreign Body Stated complaint: INFECTION OF MOUTH Time Seen by Provider: 12/06/19 22:40 Source: patient Mode of arrival: Ambulatory Limitations: no limitations History of Present Illness HPI narrative: The patient developed erythema and discomfort in the left naris 2 weeks ago. The symptoms resolved about 7 days ago. He now has erythema and swe lling to the right naris. He denies URI symptoms. He has had no headache or fever. Denies rhinorrhea, cough or sore throat. He has no chronic skin problems. Related Data Home Medications Medication Instructions Recorded Confirmed magnesium amino acid chelate #0 02/13/17 01/09/19 ranitidine HCl 150 mg tablet 150 mg PO DAILY 08/19/17 01/09/19 pantoprazole 40 mg tablet,delayed 40 mg PO DAILY 05/16/18 01/09/19 release Previous Rx's Medication Instructions Recorded oxycodone 5 mg capsule 5 mg PO Q6H PRN #15 cap 01/07/18 sumatriptan succinate 50 mg tablet 50 mg PO Q2H PRN #30 tab 03/20/18 sucralfate 100 mg/mL oral 10 ml PO QID #420 ml 05/16/18 suspension duloxetine 30 mg capsule,delayed 30 mg PO DAILY #60 cap 05/25/18 release trazodone 100 mg tablet 100 mg PO DAILY #30 tab 06/29/18 lidocaine 5 % topical ointment 1 applictn TOP TID-QID PRN #30 gram 08/11/18 cyclobenzaprine 10 mg PO TID PRN #20 tab 10/29/18 hydrocodone-acetaminophen 1 tab PO Q4-6H PRN #5 tab 10/29/18 ketorolac 10 mg PO QID PRN #20 tab 10/29/18 prednisone 50 mg PO DAILY #5 tab 10/29/18 nifedipine See Rx Instructions .ROUTE 12/17/18 .COMPLEX #30 gram amoxicillin 875 mg-potassium 1 tab PO BID #20 tab 01/09/19 clavulanate 125 mg tablet chlorhexidine gluconate 0.12 % 15 ml BUCCAL BID #118 ml 01/09/19 mouthwash sulfamethoxazole-trimethoprim 1 tab PO BID 7 Days #14 tab 12/06/19 Allergies Allergy/AdvReac Type Severity Reaction Status Date / Time nortriptyline [NORTRIPTYLINE] Allergy Unknown Verified 01/09/19 16:38 tramadol AdvReac Mild rash Verified 01/09/19 16:38 Review of Systems Constitutional Constitutional: Denies chills, Denies fever(s) and Denies headache(s) Eyes Comments: No eye complaints ENT Ears, Nose, Mouth, and Throat: Reports as per HPI and Denies headache(s) Comments: No mouth lesions or sore throat Integumentary/Breasts Skin/Breast: Reports as per HPI Comments: No other skin lesions Neurologic Neurologic: Denies headache(s) Patient History Medical History (Updated 12/06/19 @ 22:49 by Warner Gilbert MD) Anemia (Resolved 2006) BRBPR (bright red blood per rectum) (Resolved 2006) Chicken pox (Resolved) Degenerative joint disease (DJD) of lumbar spine (Chronic) Hyperlipidemia, mild (Chronic) Ibuprofen adverse reaction (Resolved) Measles (Resolved) Stomach ulcer (Resolved) Surgical History Anesthesia (Resolved) History of colonoscopy (Resolved 2006) History of colonoscopy (Resolved 2016) History of repair of left rotator cuff (Resolved 2001) Status post left foot surgery (Resolved 1987) Family History Father Age: 89 Prostate cancer Aging Pacemaker Grandfather Heart disease Heart attack Smoker Grandmother Mental health problem Alzheimer's disease Grandfather No problems noted. Grandmother No problems noted. Mother Aging IBS (irritable bowel syndrome) Sister Liver disease Social History marital status: pets and animals: Yes education level: college other: walking,boating,gardening Smoking Status: Never smoker alcohol intake: never during the past year weight has: remained stable well-balanced diet: about half the time daily servings fruits/ve-1 caffeine: Yes (rare) eating out: rarely or never Type(s) of exercise: walking Smoking Status: Never smoker alcohol intake frequency: 0-2 drinks per day Substance Use Type: does not use Exam Initial Vital Signs Initial Vital Signs: Vital Signs Temperature 98.1 F 12/06/19 22:20 Pulse Rate 76 12/06/19 22:20 Respiratory Rate 16 12/06/19 22:20 Blood Pressure 122/65 12/06/19 22:20 Pulse Oximetry 100 12/06/19 22:20 Course Course Course Narrative: The patient was started on Septra DS for nasal impetigo. A 7 day prescription was provided Vital Signs Vital signs: Vital Signs - 8 hr 12/06/19 22:20 Temperature 98.1 F Pulse Rate 76 Respiratory Rate 16 Blood Pressure 122/65 Pulse Oximetry 100 Discharge Plan Departure Patient Disposition: Home Clinical Impression: Impetigo Instructions: Impetigo Activity Restrictions/Additional Instructions: Septra DS 2 times daily for 7 days as prescribed. Return the ER if you develop fever or increasing redness across her face. Prescriptions: New sulfamethoxazole-trimethoprim 800-160 mg tablet 1 tab PO BID 7 Days Qty: 14 RF: 0 No Action pantoprazole [Protonix] 40 mg tablet,delayed release (DR/EC) 40 mg PO DAILY RF: 0 sucralfate 100 mg/mL suspension 10 ml PO QID Qty: 420 RF: 0 amoxicillin-pot clavulanate [Augmentin] 875-125 mg tablet 1 tab PO BID Qty: 20 RF: 0 chlorhexidine gluconate 0.12 % mouthwash 15 ml BUCCAL BID Qty: 118 RF: 0 lidocaine 5 % ointment 1 applictn TOP TID-QID PRN (Reason: pain) Qty: 30 RF: 2 magnesium amino acid chelate 100 mg Tablet Qty: 0 RF: 0 trazodone 100 mg tablet 100 mg PO DAILY Qty: 30 RF: 0 oxycodone 5 mg capsule 5 mg PO Q6H PRN (Reason: pain) Qty: 15 RF: 0 sumatriptan succinate 50 mg tablet 50 mg PO Q2H PRN (Reason: migraine headache) Qty: 30 RF: 10 ranitidine HCl [Acid Control (ranitidine)] 150 mg tablet 150 mg PO DAILY RF: 0 duloxetine 30 mg capsule,delayed release(DR/EC) 30 mg PO DAILY Qty: 60 RF: 2 nifedipine 0.2 % cream See Rx Instructions .ROUTE .COMPLEX Qty: 30 RF: 1 hydrocodone-acetaminophen 5-325 mg tablet 1 tab PO Q4-6H PRN (Reason: pain) Qty: 5 RF: 0 cyclobenzaprine 10 mg tablet 10 mg PO TID PRN (Reason: muscle spasm) Qty: 20 RF: 0 ketorolac 10 mg tablet 10 mg PO QID PRN (Reason: pain) Qty: 20 RF: 0 prednisone 50 mg tablet 50 mg PO DAILY Qty: 5 RF: 0 Referrals: Jermaine Liu MD [Primary Care Provider] -
[2019-12-06] MEDS: TRIMETH/SULFA 160/800 (DS) TABLET 1 TAB PO (22:53)
== END 2019-12-06 22:56 | disposition home or self-care (01) ==
PROVIDERS: Emergency Provider Emergency Medicine; Family Provider Family Medicine; PCP Family Medicine
DX: L01.00 Impetigo, unspecified (principal)
CPT/HCPCS: 99283

== ENCOUNTER → 2020-04-24 08:16 | Outpatient (CLI) | payer MEDICARE, MEDICAID, SELFPAY ==
--- NOTE | 2020-04-24 | DI.US.S_ITS ---
PROCEDURE: US ABDOMEN COMPLETE INDICATIONS: LIVER LESION TECHNIQUE: Real-time scanning was performed of the abdominal and retroperitoneal organs, with image documentation. COMPARISON: [facility], , US ABDOMEN COMPLETE, 07/09/2019, 13:09. FINDINGS: Liver: Liver is normal in size. The main portal vein demonstrates normal size and demonstrates normal appearing, hepatopetal flow. Hyperechoic nonshadowing lesions are again seen, which measure as follows: Medial left lobe, 1.5 x 1.3 x 1.2 cm (prior 2 cm) Posterior right lobe, 0.9 x 1 x 0.8 cm (prior 0.9 cm) Gallbladder: Removed. Biliary ducts: Intrahepatic bile ducts are non-dilated. Extrahepatic bile duct caliber measures 4 mm. Normal is 6-7 mm or less in diameter, or 10 mm or less post-cholecystectomy. Pancreas: Visualized portions of the pancreas are sonographically normal. Spleen: Spleen is normal in size and homogeneous in echotexture. Kidneys: Kidneys are normal in size and echotexture. Right kidney measures 9.4 cm long; left kidney measures 11.7 cm long. No hydronephrosis or nephrolithiasis. No solid masses. Aorta: Visualized aorta is normal in caliber at less than 3 cm. Iliacs: Proximal common iliac arteries are normal in caliber at less than 2.5 cm. IVC: Intrahepatic inferior vena cava is patent. Miscellaneous: No free abdominal fluid. IMPRESSION: Apparent liver hemangiomas are again seen. Status post cholecystectomy, without biliary dilatation. Dictated by: Sal Avendano M.D. on 04/24/2020 at 9:47 Approved by: Sal Avendano M.D. on 04/24/2020 at 9:50
== END ==
PROVIDERS: Family Provider Family Medicine; PCP Family Medicine; Referring Provider Internal Medicine Gastroenterology; Visit Provider Internal Medicine Gastroenterology
DX: K76.9 Liver disease, unspecified (principal); Z90.49 Acquired absence of other specified parts of digestive tract
CPT/HCPCS: 76700

== ENCOUNTER 2021-06-21 02:51 | Emergency (ER) | payer MEDICARE, MEDICAID, SELFPAY ==
[2021-06-21 03:00] VITALS: BP 133/63; PULSE 72; RESP 18; TEMP 36.6; O2SAT 98
[2021-06-21] MEDS: KETOROLAC 30 MG/ML VIAL 15 MG IV (03:51)
[2021-06-21 03:57] LABS: Add Manual Diff / Slide Review NO; Basophils Absolute Auto 100 /uL (0-100); Basophils Percent Auto 0.9 % (0-2); Eosinophils Absolute Auto 100 /uL (0-450); Eosinophils Percent Auto 1.2 % (2-4); Hematocrit 38.9 % (41-53); Hemoglobin 13.1 g/dL (13.5-17.5); Lymphocytes Absolute Auto 2800 /uL (1100-4500); Lymphocytes Percent Auto 28.1 % (25-40); Mean Corpuscular HGB Conc 33.7 % (30-36); Mean Corpuscular Hemoglobin 30.6 PG (26-34); Mean Corpuscular Volume 90.9 fL (80-100); Monocytes Absolute Auto 700 /uL (0-900); Monocytes Percent Auto 7.3 % (3-14); Neutrophils Absolute Auto 6300 /uL (1500-7000); Neutrophils Percent Auto 62.5 % (50-75); Platelet Count 230 X10^3/uL (150-400); Red Blood Cell Count 4.28 X10^6/uL (4.5-5.9); Red Cell Distribution Width 13.6 % (11.6-14.8); White Blood Cell Count 10.1 X10^3/uL (4.5-11.0)
[2021-06-21 04:06] LABS: BUN Creatinine Ratio 26.9 (6-22); Blood Urea Nitrogen 25 mg/dL (9-20); Calcium 8.6 mg/dL (8.4-10.2); Carbon Dioxide 25 mmol/L (22-32); Chloride 105 mmol/L (98-107); Estimated Glomerular Filt Rate > 60 mL/min (>60); Glucose 104 mg/dL (70-100); HEMOLYSIS < 15 (0-50); Potassium 3.8 mmol/L (3.4-5.1); Sodium 135 mmol/L (137-145)
[2021-06-21 04:14] LABS: Bacteria Urine None Seen; Culture Indicated Urine Cult Not Indicated; Mucus Urine 1+ (Negative); RBC Urine 1-5/HPF (0-5/HPF); WBC Urine None Seen (0-5/HPF)
--- NOTE | 2021-06-21 04:54 | ED_ITS ---
HPI - Back Pain/Injury General Chief Complaint: Back Pain/Injury Stated Complaint: POSSIBLE KIDNEY INFECTION Time Seen by Provider: 06/21/21 03:33 Source: patient Mode of arrival: Ambulatory Limitations: no limitations History of Present Illness HPI Narrative: This is a 60-year-old male who comes with complaint of flank pain that has been present for 2 days. Patient states fairly abrupt onset, he denies fevers or chills he has had nausea. Denies anterior abdominal pain or testicular pain. Increased discomfort with urination, no frequency or urgency or hematuria appreciated by patient. No other GI or urinary symptoms. Patient has a history of prior UTIs, chronic low back pain, dyslipidemia and ocular migraines. Patient took Percocet at home prior to arrival which he found somewhat helpful. Related Data Home Medications Medication Instructions Recorded Confirmed magnesium amino acid chelate 100 #0 02/13/17 01/09/19 mg tablet ranitidine HCl 150 mg tablet (Acid 150 mg PO DAILY 08/19/17 01/09/19 Control (ranitidine)) pantoprazole 40 mg tablet,delayed 40 mg PO DAILY 05/16/18 01/09/19 release (Protonix) Previous Rx's Medication Instructions Recorded oxycodone 5 mg capsule 5 mg PO Q6H PRN #15 cap 01/07/18 sumatriptan succinate 50 mg tablet 50 mg PO Q2H PRN #30 tab 03/20/18 sucralfate 100 mg/mL oral 10 ml PO QID #420 ml 05/16/18 suspension duloxetine 30 mg capsule,delayed 30 mg PO DAILY #60 cap 05/25/18 release trazodone 100 mg tablet 100 mg PO DAILY #30 tab 06/29/18 lidocaine 5 % topical ointment 1 applictn TOP TID-QID PRN #30 gram 08/11/18 cyclobenzaprine 10 mg tablet 10 mg PO TID PRN #20 tab 10/29/18 hydrocodone 5 mg-acetaminophen 325 1 tab PO Q4-6H PRN #5 tab 10/29/18 mg tablet ketorolac 10 mg tablet 10 mg PO QID PRN #20 tab 10/29/18 prednisone 50 mg tablet 50 mg PO DAILY #5 tab 10/29/18 nifedipine See Rx Instructions .ROUTE 12/17/18 .COMPLEX #30 gram amoxicillin 875 mg-potassium 1 tab PO BID #20 tab 01/09/19 clavulanate 125 mg tablet (Augmentin) chlorhexidine gluconate 0.12 % 15 ml BUCCAL BID #118 ml 01/09/19 mouthwash ciprofloxacin HCl 500 mg tablet 500 mg PO Q12H #20 tab 06/21/21 oxycodone-acetaminophen 5 mg-325 1 tab PO QID PRN #7 tab 06/21/21 mg tablet (Percocet) Allergies Allergy/AdvReac Type Severity Reaction Status Date / Time nortriptyline [NORTRIPTYLINE] Allergy Unknown Verified 01/09/19 16:38 tramadol AdvReac Mild rash Verified 01/09/19 16:38 Review of Systems Review of Systems ROS Unobtainable: All systems reviewed & are unremarkable except as noted in HPI and below Patient History Medical History (Updated 06/21/21 @ 06:00 by Daija Lopez DO) Anemia (2006) BRBPR (bright red blood per rectum) (2006) Chicken pox Degenerative joint disease (DJD) of lumbar spine Hyperlipidemia, mild Ibuprofen adverse reaction Measles Stomach ulcer Surgical History Anesthesia History of colonoscopy (2006) History of colonoscopy (2016) History of repair of left rotator cuff (2001) Status post left foot surgery (1987) Family History Father Age: 91 Prostate cancer Aging Pacemaker Grandfather Heart disease Heart attack Smoker Grandmother Mental health problem Alzheimer's disease Grandfather No problems noted. Grandmother No problems noted. Mother Aging IBS (irritable bowel syndrome) Sister Liver disease Social History marital status: pets and animals: Yes education level: college other: walking,boating,gardening Smoking Status: Never smoker alcohol intake: never during the past year weight has: remained stable well-balanced diet: about half the time daily servings fruits/ve-1 caffeine: Yes (rare) eating out: rarely or never Type(s) of exercise: walking Smoking Status: Never smoker alcohol intake frequency: 0-2 drinks per day Substance Use Type: does not use Exam Narrative Exam Narrative: GENERAL: Alert and oriented x three, male in mild distress. HEENT: Head normocephalic, atraumatic, EOMI, pupils reactive, face symmetric, moist mucous membranes NECK: Supple, full range of motion CARDIOVASCULAR: Regular rate and rhythm without murmurs, rubs or gallops. RESPIRATORY: Breath sounds equal bilaterally, no wheezes rales or rhonchi. ABDOMEN: Soft, nontender. Normoactive bowel sounds all 4 quadrants. No guar ding or rebound, rigidity, no mass : No CVA tenderness BACK: No cervical, thoracic or lumbar vertebral point tenderness. Patient has normal range of motion. Patient's gait is normal. Muscle strength is 5/5 in lower extremities, dorsalis pedis and tibialis pulses are 2+ and lower extremities. Sensation is intact in the lower extremities. EXTREMITIES: Normal range of motion, no clubbing or edema. Neurovascularly intact NEUROLOGICAL: Cranial nerves II through XII grossly intact. Moving all extremities SKIN: Warm, dry, no petechiae, no rashes or lesions. Initial Vital Signs Initial Vital Signs: Vital Signs Temperature 98 F 06/21/21 03:00 Pulse Rate 72 06/21/21 03:00 Respiratory Rate 18 06/21/21 03:00 Blood Pressure 133/63 06/21/21 03:00 Pulse Oximetry 98 06/21/21 03:00 Course Orders Ordered: Discontinued Medications Ciprofloxacin (Ciprofloxacin 250 Mg Tablet) 500 mg PO NOW ONE Stop: 06/21/21 06:04 Last Admin: 06/21/21 06:18 Dose: 500 mg Documented by: ANGEL Ketorolac Tromethamine (Ketorolac 30 Mg/Ml Vial) 15 mg IV NOW ONE Stop: 06/21/21 03:35 Last Admin: 06/21/21 03:51 Dose: 15 mg Documented by: PARIS Vital Signs Vital signs: Vital Signs - 8 hr 06/21/21 03:00 Temperature 98 F Pulse Rate 72 Respiratory Rate 18 Blood Pressure 133/63 Pulse Oximetry 98 MDM - Back Pain/Injury Lab Data Result diagrams: 06/21/21 03:45 06/21/21 03:45 Labs: Lab Results 06/21/21 06/21/21 06/21/21 Range/Units 03:30 03:45 03:45 WBC 10.1 (4.5-11.0) X10^3/uL RBC 4.28 L (4.5-5.9) X10^6/uL Hgb 13.1 L (13.5-17.5) g/dL Hct 38.9 L (41-53) % MCV 90.9 (80-100) fL MCH 30.6 (26-34) PG MCHC 33.7 (30-36) % RDW 13.6 (11.6-14.8) % Plt Count 230 (150-400) X10^3/uL Neut % (Auto) 62.5 (50-75) % Lymph % (Auto) 28.1 (25-40) % [place] % (Auto) 7.3 (3-14) % Eos % (Auto) 1.2 L (2-4) % Baso % (Auto) 0.9 (0-2) % Neut # (Auto) 6300 (4339-5689) /uL Lymph # (Auto) 2800 (5707-8742) /uL [place] # (Auto) 700 (0-900) /uL Eos # (Auto) 100 (0-450) /uL Baso # (Auto) 100 (0-100) /uL Sodium 135 L (137-145) mmol/L Potassium 3.8 (3.4-5.1) mmol/L Chloride 105 (98-107) mmol/L Carbon Dioxide 25 (22-32) mmol/L BUN 25 H (9-20) mg/dL Creatinine 0.93 (0.66-1.25) mg/dL Estimated GFR > 60 (>60) mL/min BUN/Creatinine Ratio 26.9 H (6-22) Glucose 104 H (70-100) mg/dL Calcium 8.6 (8.4-10.2) mg/dL Urine RBC 1-5/hpf (0-5/HPF) Urine WBC None seen (0-5/HPF) Urine Bacteria None seen (None) Urine Mucus 1+ H (Negative) Ur Culture Indicated? Cult not indicated Urine Dip Bedside Urine Glucose Negative Bedside Urine Bilirubin - Negative Bedside Urine Ketone - Negative Urine Specific [place] 1.020 Bedside Urine Occult Blood + Bedside Urine pH 6.0 Bedside Urine Protein - Negative Bedside Urine Urobilinogen - Negative Bedside Urine Nitrite - Negative Bedside Urine Leukocytes - Negative Esterase Imaging Data CT scan - abdomen/pelvis: Radiologist's Impression: No acute findings in the abdomen or pelvis. MDM Narrative Medical decision making narrative: Patient has flank, some symptoms are more consistent with kidney stone. Urine shows blood, with 1-5 RBCs. Discharge Plan Departure Patient Disposition: Home Clinical Impression: UTI (urinary tract infection) Instructions: DI for Urinary Tract Infection (UTI) Activity Restrictions/Additional Instructions: Your imaging today does not show any signs of kidney stone. Your hematuria and flank pain could be secondary to infection. Please take antibiotics until completely gone. You may take 1-2 tablet pain medication 6 hours needed. This medication can make you sleepy do not drive, perform hazardous activities or make any major decisions while taking it. This medication will make you constipated please take a stool softener once to twice daily until stools are soft and regular. Prescription sent to [facility] in [place]. Please return for fevers, rapidly worsening abdominal, back or flank pain, persistent vomiting, black or bloody stools, inability urinate, increasing amounts of hematuria with large amounts of clot and lightheadedness or passing out. Prescriptions: New ciprofloxacin HCl 500 mg tablet 500 mg PO Q12H Qty: 20 0RF oxycodone-acetaminophen [Percocet] 5-325 mg tablet 1 tab PO QID PRN (Reason: pain) Qty: 7 0RF No Action pantoprazole [Protonix] 40 mg tablet,delayed release (DR/EC) 40 mg PO DAILY 0RF sucralfate 100 mg/mL suspension 10 ml PO QID Qty: 420 0RF amoxicillin-pot clavulanate [Augmentin] 875-125 mg tablet 1 tab PO BID Qty: 20 0RF chlorhexidine gluconate 0.12 % mouthwash 15 ml BUCCAL BID Qty: 118 0RF lidocaine 5 % ointment 1 applictn TOP TID-QID PRN (Reason: pain) Qty: 30 2RF magnesium amino acid chelate 100 mg Tablet Qty: 0 0RF trazodone 100 mg tablet 100 mg PO DAILY Qty: 30 0RF oxycodone 5 mg capsule 5 mg PO Q6H PRN (Reason: pain) Qty: 15 0RF sumatriptan succinate 50 mg tablet 50 mg PO Q2H PRN (Reason: migraine headache) Qty: 30 10RF Rx Instructions: take 1 tablet, if no response can repeat in 2 hours; not to exceed 4 doses in a 24 hour period ranitidine HCl [Acid Control (ranitidine)] 150 mg tablet 150 mg PO DAILY 0RF duloxetine 30 mg capsule,delayed release(DR/EC) 30 mg PO DAILY Qty: 60 2RF nifedipine 0.2 % cream See Rx Instructions .ROUTE .COMPLEX Qty: 30 1RF Rx Instructions: apply to anus bid ; hydrocodone-acetaminophen 5-325 mg tablet 1 tab PO Q4-6H PRN (Reason: pain) Qty: 5 0RF cyclobenzaprine 10 mg tablet 10 mg PO TID PRN (Reason: muscle spasm) Qty: 20 0RF ketorolac 10 mg tablet 10 mg PO QID PRN (Reason: pain) Qty: 20 0RF prednisone 50 mg tablet 50 mg PO DAILY Qty: 5 0RF Referrals: Jermaine Liu MD [Primary Care Provider] -
--- NOTE | 2021-06-21 05:02 | DI.CT.S_ITS ---
PROCEDURE: CT KIDNEY URETER BLADDER (KUB) INDICATIONS: left flank pain, hematuria TECHNIQUE: Axial sections were acquired from the lung bases to the pubic symphysis. Coronal and sagittal reformats were performed. For radiation dose reduction, the following was used: automated exposure control, adjustment of mA and/or kV according to patient size. COMPARISON: None. FINDINGS: Image quality: Excellent. Lung bases: Unremarkable. Heart: No significant findings. URINARY: Right Kidney: No stones or hydronephrosis. Right Ureter: No hydroureter. Left Kidney: No stones or hydronephrosis. Left Ureter: No hydroureter. Bladder: Normal wall thickness. No stones. ABDOMEN: Liver: Unremarkable. Gallbladder: Gallbladder is surgically absent Biliary ducts: Unremarkable. Pancreas: Unremarkable. Spleen: Unremarkable. Adrenal Glands: Unremarkable. Stomach and Bowel: Stomach, small bowel loops, and colon are unremarkable. The appendix is normal. Peritoneum: No abnormal intraperitoneal fluid. No free air. Ventral Wall: No hernia. Abdominal Nodes: No enlarged retroperitoneal or mesenteric lymph nodes. Vessels: Aorta and inferior vena cava are normal in size. Scattered atherosclerotic calcifications involving the abdominal and pelvic vasculature. PELVIS: Pelvic Organs: Unremarkable. Pelvic Nodes: Unremarkable. Miscellaneous: No inguinal hernias are seen. Bones: Spine degenerative disc disease and facet arthropathy. IMPRESSION: No renal stone or hydronephrosis. Dictated by: Cadence Mascorro MD, PhD on 06/21/2021 at 8:38 Approved by: Cadence Mascorro MD, PhD on 06/21/2021 at 8:45
[2021-06-21] MEDS: CIPROFLOXACIN 250 MG TABLET 500 MG PO (06:18)
[2021-06-21 06:19] VITALS: BP 130/60; PULSE 68; RESP 16; O2SAT 98
== END 2021-06-21 06:20 | disposition home or self-care (01) ==
PROVIDERS: Emergency Provider Emergency Medicine; Family Provider Family Medicine; PCP Family Medicine
DX: N39.0 Urinary tract infection, site not specified (principal)
CPT/HCPCS: 36415; 74176; 80048; 81003; 81015; 85025; 96374; 99283; 99284; J1885

== ENCOUNTER 2022-09-17 17:24 | Emergency (ER) | payer MEDICARE, SELFPAY ==
[2022-09-17 17:43] VITALS: BP 141/65; PULSE 88; RESP 18; TEMP 37.2; O2SAT 99; BMI 23.0
--- NOTE | 2022-09-17 17:55 | DI.CT.S_ITS ---
PROCEDURE: CT HEAD/BRAIN WO CON INDICATIONS: hit head, no LOC TECHNIQUE: Noncontrast 4.5 mm thick angled axial sections acquired from the foramen magnum to the vertex, with coronal and sagittal reformats. For radiation dose reduction, the following was used: automated exposure control, adjustment of mA and/or kV according to patient size. COMPARISON: [facility], CT, HEAD WITHOUT CONTRAST, 08/25/2016, 17:16. FINDINGS: Image quality: Excellent. CSF spaces: Basal cisterns are patent. No extra-axial fluid collections. Ventricles are normal in size and shape. Brain: No midline shift. No intracranial masses or hemorrhage. Wilkerson-white matter interface is normal. Calcifications within the magnum foramen, similar to prior. Skull and face: Calvarium and visualized facial bones are intact, without suspicious lesions. Sinuses: Visualized sinuses and mastoids are clear. IMPRESSION: No acute intracranial pathology. Dictated by: Mars Becker M.D. on 09/17/2022 at 18:22 Approved by: Mars Becker M.D. on 09/17/2022 at 18:24
[2022-09-17] MEDS: ONDANSETRON 4 MG ODT SL (17:57)
[2022-09-17 18:41] VITALS: PULSE 122; RESP 20; O2SAT 97
[2022-09-17] MEDS: ACETAMINOPHEN 325 MG TABLET 975 MG PO (18:47)
== END 2022-09-17 20:11 | disposition left against medical advice (07) ==
PROVIDERS: Emergency Provider Emergency Medicine; Family Provider Family Medicine; PCP Family Medicine
DX: S09.90XA Unspecified injury of head, initial encounter (principal); R11.2 Nausea with vomiting, unspecified; W18.30XA Fall on same level, unspecified, initial encounter
CPT/HCPCS: 70450; 99283